=== PATIENT | female | born 1975 | race Caucasian/White ===

== ENCOUNTER 2023-05-06 12:05 | Outpatient (CLI) | payer OTHER, SELFPAY ==
--- OUTSIDE RECORDS SUMMARY | 2023-05-11 20:19 | XMS_ITS | Clinical Summary ---
Author Name Unknown Organization [place] Address [address] [place] [address] Care Team Providers Care Retail Operations Specialist Name Role Phone Gigi Myers MD Primary Care Provider [phone] Mery Alicia RN Unavailable Unavaila ble Gigi Myers MD Unavailable [phone] Paz Pimentel PhD Unavailable [phone] Donal Bustillos MD Unavailable Omer Escoto MD Unavailable [phone] Omer Escoto MD Unavailable [phone] Allergies Active Allergy Reactions Criticality Noted Date Comments No Known Drug Allergy 06/17/2003 Medications Medication Sig Dispensed Refills Start Date End Date Status Multiple Vitamin (DAILY VITAMIN PO) Take by mouth daily 0 Active psyllium 30.9 % POWD Take by mouth daily 0 Active co-enzyme Q-10 100 MG CAPS capsule Take by mouth daily 0 Active cholecalciferol (VITAMIN D3) 1000 units (25 mcg) capsule Take 1 capsule by mouth daily 0 Active Biotin 10 MG CAPS 0 Active calcium carbonate (OS-UMA) 500 MG tablet Take 1 tablet by mouth 2 times daily 0 Active glutamine 500 MG capsule Take 500 mg by mouth once 0 Active folic acid (FOLVITE) 1 MG tablet Take 1 tablet (1 mg) by mouth daily 0 08/28/2019 Active KEVZARA 200 MG/1.14ML SOAJ 0 06/16/2021 Active hydroxychloroqu ine (PLAQUENIL) 200 MG tablet Take 200 mg by mouth 2 times daily 0 09/01/2021 Active nortriptyline (PAMELOR) 50 MG capsuleIndicati ons: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 This is not a prescription, and is not used to certify that the patient has a qualifying medical condition.) 0 Active famotidine (PEPCID) 20 MG tablet Take 20 mg by mouth 0 Active ALPRAZolam (XANAX) 0.25 MG tabletIndicatio ns:Generalized anxiety disorder TAKE 1 TABLET BY MOUTH 2 TIMES DAILY NEEDED FOR ANXIETY. 30 tablet 0 11/21/2022 Active busPIRone (BUSPAR) 5 MG tabletIndicatio ns:Generalized anxiety disorder Take 1 tablet (5 mg) by mouth 2 times daily for 10 days, THEN 1.5 tablets (7.5 mg) 2 times daily for 10 days, THEN 2 tablets (10 mg) 2 times daily for 10 days. 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) Take 1 tablet (10 mg) by mouth 3 times daily as needed for muscle spasms 30 tablet 5 11/30/2022 Active nicotine (NICODERM CQ) 7 MG/24HR 24 hr patchIndication s:Encounter for tobacco use cessation counseling Place 1 patch onto the skin every 24 hours 30 patch 2 03/20/2023 Active nicotine (NICORETTE) 2 MG gumIndications: Encounter for tobacco use cessation counseling Place 1 each (2 mg) inside cheek every hour as needed for smoking cessation 240 each 1 03/21/2023 Active busPIRone (BUSPAR) 10 MG tabletIndicatio ns:Generalized anxiety disorder TAKE 1 TABLET BY MOUTH TWICE A DAY 180 tablet 1 03/29/2023 Active gabapentin (NEURONTIN) 300 MG capsuleIndicati ons:Neuralgia Take 1 capsule (300 mg) by mouth 2 times daily 60 capsule 1 04/28/2023 Active albuterol (PROAIR HFA/PROVENTIL HFA/VENTOLIN HFA) 108 (90 Base) MCG/ACT inhalerIndicati ons:Chest tightness Inhale 1-2 puffs into the lungs every 4 hours as needed for shortness of breath 6.7 g 0 01/01/2023 04/25/19 24 Discontinued( Therapy completed (No AVS)) guaiFENesin-cod eine (ROBITUSSIN AC) 100-10 MG/5ML solutionIndicat ions:Acute cough Take 5-10 mLs by mouth every 4 hours as needed for cough 60 mL 0 01/01/2023 04/25/19 24 Discontinued( Therapy completed (No AVS)) oxyCODONE (ROXICODONE) 5 MG tablet Take 1 tablet (5 mg) by mouth every 6 hours as needed for pain 10 tablet 0 04/08/2023 04/13/20 23 gabapentin (NEURONTIN) 300 MG capsuleIndicati ons:Neuralgia Take 1 capsule (300 mg) by mouth at bedtime 30 capsule 1 04/19/2023 04/28/19 24 Discontinued( Reorder (No AVS)) Active Problems Problem Noted Date Diagnosed Date High risk medication use 02/27/2022 Primary osteoarthritis of both knees 07/18/2020 Nontraumatic complete tear of left rotator cuff 07/07/2020 Overview: Added automatically from request for surgery [id number] BMI 50.0-59.9, adult 04/07/2020 Medical cannabis use 02/13/2020 Overview: Certification for RA and Chronic Joint Pain 02/13/2020 Rheumatoid arthritis involvi ng both shoulders with positive rheumatoid factor 07/08/2019 Obesity 05/24/2018 Irritable bowel syndrome 11/27/2013 Overview: Manages with fiber supplement and dietary Generalized anxiety disorder 11/27/2013 Disturbance of skin sensation 04/27/2005 Resolved Problems Problem Noted Date Diagnosed Date Resolved Date RA (rheumatoid arthritis) 07/12/2021 Acute pain of right knee 02/24/202110/2021 Acute pain of left shoulder 08/31/2020 12/14/2020 Aftercare following surgery of the musculoskeletal system 08/31/2020 12/14/2020 Nontraumatic incomplete tear of left rotator cuff 04/07/2020 06/11/2020 Shoulder pain, left 04/10/2019 07/10/19 Acute pain of right shoulder 04/10/2019 07/10/2019 Intermittent asthma 03/26/2014 06/20/19 Encounters Date Type Department Care Team Description 04/28/[address] [place] [address] Gigi Myers MD Medication Request (Gabapentin ) 04/12/2023 5:30 PM DIAPER MACHINE TENDER E-Visit [address] [place] [address] Gigi Myers MD Other (Entered automatically based on jessica... 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); Rash Discharge Disposition: Home or Self Care 04/08/2023 Travel 03/29/[address] [place] [address] Gigi Myers MD Medication Refill 03/20/2023 [facility]phone [facility] [address] [place] [address] Gigi Myers MD Medication Question (Requesting med for smoking cessation ) from Last 3 Months Immunizations Name Administration Dates Next Due Influenza (IIV3) PF 02/02/2012,01/13/2011 Family History Medical History Relation Comments Alzheimer Disease Maternal Grandmother Macular Degeneration Maternal Grandmother Depression Mother Macular Degeneration Mother Cancer - colorectal Paternal Aunt Cancer - colorectal Paternal Grandmother Psychotic Disorder Sister bipolar? schi zoaffective? -- has been hospitalized multiple times Alcohol/Drug No family hx of Breast Cancer No family hx of C.A.D. No family hx of Diabetes No family hx of Glaucoma No family hx of Relation Status Comments Maternal Grandmother Mother Paternal Aunt Paternal Grandmother Sister Social History Tobacco Use Types Packs/Day Years Used Date Smoking Tobacco: Some Days Cigarettes 0.5 10 Last attempted to quit: 02/02/1999 Smokeless Tobacco: Never Tobacco Cessation:Ready to Q uit: Not Asked; Counseling Given: Not Answered Alcohol Use Standard Drinks/Week Comments Yes 0 (1 standard drink = 0.6 oz pur e alcohol) 5/month Social Connection and Isolat ion Panel [NHANES] Answer Date Recorded In a typical week, how many times do you talk on the phone with family, friends, or neighbors? More than three times a week 11/15/2021 How often do you get togethe r with friends or relatives? Twice a week 11/15/2021 How often do you attend chur or evangelical services? Never 11/15/2021 Do you belong to any clubs o r organizations such as anabaptism groups, unions, fraternal or athletic groups, or school groups? No 11/15/2021 Attends Club or Organization Meetings Not on bharat e 11/15/2021 Are you , , di vorced, , never , or living with a partner? Never 11/15/2021 AUDIT-C Answer Date Recorded Q1: How often do you have a drink containing alc ohol? 2-4 times a month 11/15/2021 Q2: How many drinks containi ng alcohol do you have on a typical day when you are drinking? 3 or 4 11/15/2021 Q3: How often do you have si x or more drinks on one occasion? Never 11/15/2021 Overall Financial Resource Strain (CARDIA) Answe r Date Recorded How hard is it for you to pa y for the very basics like food, housing, medical care, and heating? Not hard at all 11/15/2021 PHQ-2 Answer Date Recorded PHQ-2 Score 0 11/30/2022 [facility] - Occupational Stress Questionnaire Answer Date Recorded Do you feel stress - tense, restless, nervous, or anxious, or unable to sleep at night because your mind is troubled all the time - these days? Only a little 11/15/2021 Exercise Vital Sign Answer Date Recorde d On average, how many days pe r week do you engage in moderate to strenuous exercise (like a brisk walk)? 5 days 11/15/2021 On average, how many minutes do you engage in exercise at this level? 40 min 11/15/2021 Hunger Vital Sign Answer Date Recorded Within the past 12 months, y ou worried that your food would run out before you got the money to buy more. Never true 11/16/19 22 Within the past 12 months, t he food you bought just didn't last and you didn't have money to get more. Never true 11/15/2021 PRAPARE - Transportation Answer Date Re corded In the past 12 months, has l ack of transportation kept you from medical appointments or from getting medications? No 10/23 In the past 12 months, has l ack of transportation kept you from meetings, work, or from getting things needed for daily living? No 11/15/2021 Housing Stability Vital Sign Answer Gerardo e Recorded In the last 12 months, was t here a time when you were not able to pay the mortgage or rent on time? No 11/15/2021 In the last 12 months, how many places have you lived? 1 11/15/2021 In the last 12 months, was t here a time when you did not have a steady place to sleep or slept in a alf (including now)? No 11/15/2021 Adolescent Education Answer Date Record ed Getting School Help Needed Not on file 01/16 Sex and Gender Information Value Date Recorded Sex Assigned at Not on file Gender Identity Not on file Sexual Orientation Not on file Last Filed Vital Signs Vital Sign Reading Time Taken Comments Blood Pressure 145/77 04/08/2023 1:58 PM DIAPER MACHINE TENDER Pulse 91 04/08/2023 1:58 PM DIAPER MACHINE TENDER Temperature 36.7 ??C (98 ??F) 04/08/2023 12:34 PM DIAPER MACHINE TENDER Respiratory Rate 16 04/08/2023 12:34 PM DIAPER MACHINE TENDER Oxygen Saturation 97% 04/08/2023 2:00 PM DIAPER MACHINE TENDER Inhaled Oxygen Concentration - - Weight 131.5 kg (290 lb) 04/08/2023 12:34 PM DIAPER MACHINE TENDER Height 167.6 cm (5' 6) 04/08/2023 12:34 PM DIAPER MACHINE TENDER Body Mass Index 46.81 04/08/2023 12:34 PM DIAPER MACHINE TENDER Plan of Treatment Upcoming Encounters Date Type Department Care Team (Late st Contact Info) Description 05/24/2023 10:30 AM DIAPER MACHINE TENDER Office Visit [address] [phone] Coming Duarte, July MD Joy [id number] [place] [id number] Health Maintenance Due Date Last Done Comments ADVANCE CARE PLANNING 1974 ANNUAL REVIEW OF HM ORDERS 1974 CT COLONOGRAPHY 1974 FIT 1974 FLEX SIG 1974 YEARLY PREVENTIVE VISIT 1974 sDNA (Cologuard) 1974 Pneumococcal Vaccine: Pediatrics (0 to 5 Years) and At-Risk Patients (6 to 64 Years) (1 of 2 - PCV) 1980 DTAP/TDAP/TD IMMUNIZATION (1 - Tdap) 09/06/1999 LIPID 02/08/2021 02/09/2016 ASTHMA CONTROL TEST 12/18/2022 06/20/2022, 11/15/2021, 06/12/2020 (Declined), Additional history exists COVID-19 Vaccine ( - season) 2022 12/17/2021, 01/16/2021, 12/26/2020 INFLUENZA VACCINE (#1) 2022 (Declined), 05/22/2018 (Declined), 02/02/2012, Additional history exists PHQ-2 (once per calendar year) 2023 11/30/2022, 06/20/2022, 11/15/2021, Additional history exists ASTHMA ACTION PLAN 06/20/2023 06/20/2022, 0 09/02/2020, 09/02/2020, Additional history exists NICOTINE/TOBACCO CESSATION COUNSELING Q 1 YR 06/20/2023 06/20/2022 MAMMO SCREENING 10/29/2023 10/28/2022, 07/0 10/2022, 10/14/2021, Additional history exists PAP 04/24/2025 04/24/2022, 08/27/2012 COLONOSCOPY 08/19/2032 08/19/2022, 08/19/2022 COLORECTAL CANCER SCREENING 08/19/2032 HIV SCREENING Addressed 05/22/2018 (Declined) Overr idden with the intention of not completing the topic HEPATITIS B IMMUNIZATION Discontinued HEPATITIS C SCREENING Discontinued HPV IMMUNIZATION Aged Out No longer e ligible based on patient's age to complete this topic IPV IMMUNIZATION Aged Out No longer e ligible based on patient's age to complete this topic MENINGITIS IMMUNIZATION Aged Out No l onger eligible based on patient's age to complete this topic RSV MONOCLONAL ANTIBODY Aged Out No l onger eligible based on patient's age to complete this topic Medical Devices Implanted Type Area Medical Underwriter Device Identifier Shelf Expiration Date Model / Serial / Lot Imp Mirena Intrauterine Device Implanted:Qty: 1 on 02/13/2019 by Zara Ocampo MD at [facility] N/A: Uterus 05/24/2021 [id number] / / [id number] Explanted Type Area Medical Underwriter Device Identifier Shelf Expiration Date Model / Serial / Lot Mirena Iud Implanted:Qty: 1 on 06/24/2014 by Zara Ocampo MD at [facility] Explanted:Qty: 1 on 02/13/2019 by Zara Ocampo MD at [facility] N/A: Uterus 12/22/2016 [id number] / NO CHARGE, [facility] OCAMPO BROUGHT FROM [facility] Care Teams Retail Operations Specialist Relationship Specialty Start Date End Date Gigi Myers MD [address] [place] [address] [place] [id number] PCP - General Internal Medicine 05/05/15 Mery Alicia, LISA Personal Advocate & Liaison (PAL) 08/13/20 Gigi Myers MD [address] [place] [address] [place] [id number] Assigned PCP 03/07/21 [place] [id number] [place] [id number] Assigned Behavioral Health Provider 09/05/21 Donal Bustillos MD [address] [place] [address] Dermatology 09/28/21 Omer Escoto MD [address] [facility] [place] [phone] Ophthalmology 12/20/21 Omer Escoto MD [address] [facility] [phone] Assigned Surgical Provider 08/27/22
--- OUTSIDE RECORDS SUMMARY | 2023-05-11 20:19 | XMS_ITS | Encounter Summary ---
Author Name Unknown Organization [facility] Address [address], [place] [address] Care Team Providers Care Certified Nurses Aide Name Role Phone Gigi Myers MD Primary Care Provider [phone] Reason for Visit * Reason Comments Refill Encounter Details Date Type Department Care Team Description 07/28/2022 Refill [facility] [address] Rhe[address] [facility] [place], [place] [address] Mary Beth Pendleton, DO [address] [place], [place] [id number] Refill Social History Tobacco Use Types Packs/Day Years Used Date Smoking Tobacco: Never Smokeless Tobacco: Never Alcohol Use Standard Drinks/Week Comments Yes 0 (1 standard drink = 0.6 oz pur e alcohol) social- 2/week Sex and Gender Information Value Date Recorded Sex Assigned at Not on file Gender Identity Not on file Sexual Orientation Not on file documented as of this encounter Nursing Notes * Qi Duncan RN - 07/28/2022 7:49 AM CDT Last visit 02/26/21. VM left for patient 10/26/21 that an appointment is needed for refills, no appointment made, refill denied. documented in this encounter Plan of Treatment Not on file documented as of this encounter Visit Diagnoses Not on filedocumented in this encounter Care Teams Certified Nurses Aide Relationship Specialty Start Date End Date Gigi Myers MD [address] [facility] [place] [address] PCP - General Internal Medicine 07/13/18 documented as of this encounter
--- OUTSIDE RECORDS SUMMARY | 2023-05-11 20:19 | XMS_ITS | Clinical Summary ---
Author Name Unknown Organization [facility] Address [address] [place] [address] Care Team Providers Care Nuclear Medicine Specialist Name Role Phone Gigi Myers MD Primary Care Provider + [phone] Source Comments You are receiving this document as you are listed as the primary care provider,follow-up provider, or the patient has been referred to you for consultation.This is in compliance with the Medicare andThe [facility] EHR Incentive Program,which states Providers who transition their patient to another setting of careor provider of care or refers their patient to another provider of care shouldprovide summary care record for each transition of care or referral. [facility] Allergies No known active allergies Medications Medication Sig Dispensed Refills Start Date End Date Status psyllium (METAMUCIL) 30.9 % powder Take by mouth. 0 Active Multiple Vitamins-Minerals (MULTIPLE VITAMINS/WOMENS) Take by mouth. 0 04/27/2005 Acti ve Calcium 500 MG Take 1 Tablet by mouth. 0 Active Cholecalciferol (VITAMIN D3) 25 MCG (1000 UT) Take 1 Capsule by mouth. 5000 0 Active Lactobacillus Acid-Pectin (ACIDOPHILUS/CITRUS PECTIN) tablet Take 1 Tablet by mouth. 0 Active zinc sulfate (ZINCATE) 220 (50 Zn) MG capsule Take 220 mg by mouth. 0 Active famotidine (PEPCID) 20 MG tablet Take 20 mg by mouth two times daily as needed for Heartburn. 0 Active omega-3 fatty acids (FISH OIL) 1000 MG capsule Take 2 g by mouth daily. 0 Active Glutamine 500 MG 0 Active Glucosamine-Chondroit -Vit C-Mn (GLUCOSAMINE 1500 COMPLEX OR) 0 Active Biotin 10 MG CAPS Take by mouth. 0 Act scarlet tocopheryl (VITAMIN E) 400 units capsule Take by mouth. 0 Active Probiotic Product (FLORAJEN BIFIDOBLEND OR) Take 1 Capsule by mouth. 0 Active Digestive Enzymes 0 Active medical cannabis patient certifiedIndications: Seropositive rheumatoid arthritis (HRC),Nontraumatic incomplete tear of left rotator cuff Take as instructed . 0 Active cyclobenzaprine (FLEXERIL) 10 MG tablet TAKE 1 TABLET BY MOUTH TWO TIMES DAILY NEEDED FOR MUSCLE SPASMS. 60 Tablet 2 07/19/2020 Active hydrOXYzine pamoate (VISTARIL) 25 MG capsuleIndications:S/ P shoulder surgery Take 1-2 Capsules by mouth three times a day as needed. 30 Capsule 0 09/11/2020 Active celecoxib (CELEBREX) 100 MG capsule Take 1 Capsule by mouth two times a day. 60 Capsule 5 11/20/2020 Active traMADol (ULTRAM) 50 MG tabletIndications:Ser opositive rheumatoid arthritis (HRC),Primary osteoarthritis of both knees,Chronic pain syndrome Take 1-2 Tablets by mouth at bedtime as needed for Pain. 30 Tablet 0 11/20/2020 Active tofacitinib citrate (XELJANZ XR) 11 MG [id number]:Rheum atoid Arthritis,M05.9 Take 11 mg by mouth daily. Indications: Rheumatoid Arthritis, M05.9 30 Tablet 11 11/25/2020 Active ALPRAZolam (XANAX) 0.25 MG tablet 0 01/07/2021 Active folic acid 1 MG tablet TAKE 1 TABLET BY MOUTH EVERY DAY 90 Tablet 3 07/09/2021 Active methotrexate 2.5 MG tablet Take 8 Tablets (20 mg) by mouth once every week LABS AND APPT NEEDED FOR REFILLS 32 Tablet 0 10/26/2021 Active Active Problems Problem Noted Date Diagnosed Date Primary osteoarthritis of both knees 07/18/2020 Nontraumatic complete tear of left rotator cuff 07/07/2020 Overview: Added automatically from request for surgery [id number] BMI 50.0-59.9, adult 04/07/2020 Medical cannabis use 02/13/2020 Overview: Certification for RA and Chronic Joint Pain 02/13/2020 Seropositive rheumatoid arthritis 11/12/2019 Morbid obesity 05/24/2018 Intermittent asthma 03/26/2014 Generalized anxiety disorder 11/27/2013 Irritable bowel syndrome 11/27/2013 Overview: Manages with fiber supplement and dietary Disturbance of skin sensation 04/27/2005 Resolved Problems Problem Noted Date Diagnosed Date Resolved Date Nontraumatic incomplete tear of left rotator cuff 04/07/2020 07/17/2020 Immunizations Name Administration Dates Next Due Flu Vac (3+ yrs) 02/02/2012,01/13/2011 Pfizer Monovalent 12+ Purple Top 01/16/2021,09/0 07/2020 Family History Medical History Relation Name Comments Arthritis Mother Arthritis Maternal Uncle Inflammatory Bowel Disease Negative Family History Lupus Negative Family History Relation Name Status Comments Mother Alive Maternal Uncle Alive Social History Tobacco Use Types Packs/Day Years [...] Sign Reading Time Taken Comments Blood Pressure 128/85 02/26/2021 9:28 AM CDT Pulse 76 02/26/2021 9:28 AM CDT Temperature 36.4 ??C (97.6 ??F) 11/20/2020 9:42 AM CD T Respiratory Rate 23 08/17/2020 2:00 PM CDT Oxygen Saturation 94% 08/17/2020 2:45 PM CDT Inhaled Oxygen Concentration - - Weight 130.2 kg (287 lb) 04/28/2021 4:23 PM LATHER APPRENTICE Height 167.6 cm (5' 6) 04/28/2021 4:23 PM LATHER APPRENTICE Body Mass Index 46.32 04/28/2021 4:23 PM LATHER APPRENTICE Plan of Treatment Health Maintenance Due Date Last Done Comments Cervical Cancer Screening Due 1974 Colon Cancer Screening Plan Due 1974 HepB (1) 1974 Asthma ACT 1978 Pneumococcal (1 - PCV) 1980 HIV Screening (Preventive Services) 1990 Adult Preventive Visit 1992 DTaP/Tdap/Td (1 - Tdap) 1993 Cholesterol 09/06/2019 COVID-19 Vaccine (3 - 2022-2 4 season) 2022 01/16/2021, 12/26/2020 Influenza (#1) 2022 02/02/2012, 01/13/2011 Zoster/Shingles (1 of 2) 2024 Hep C Screening (Preventive Services) Completed 07/30/2019 HepA Aged Out No longer eligi ble based on patient's age to complete this topic Hib Aged Out No longer eligi ble based on patient's age to complete this topic IPV (Polio) Aged Out No longer eligi ble based on patient's age to complete this topic MCV4 Aged Out No longer eligi ble based on patient's age to complete this topic Medical Devices Implanted Type Area Sample Room Supervisor Device Identifier Shelf Expiration Date Model / Serial / Lot Scr Biotendesis Lucyvelroula - [id number] Implanted:Qty: 1 on 08/17/2020 by Mike Smith MD at [facility] DEVICE Left: SHOULDER [employer] 01/22/2024 [id number] / / [id number] Advance Directives Latest Code Status on File Code Status Date Activated Date Inactivated Comments Full Code 08/17/2020 2:10 PM 08/17/2020 5:08 PM Care Teams Nuclear Medicine Specialist Relationship Specialty Start Date End Date Gigi Myers MD [address] [place] [address] [place] [address] PCP - General Internal Medicine 07/13/18
--- OUTSIDE RECORDS SUMMARY | 2023-05-11 20:19 | XMS_ITS | Encounter Summary ---
Author Name Unknown Organization [place] Address [address] [place] [address] Care Team Providers Care Stone Setter Metal Optical Frames Name Role Phone Gigi Myers MD Primary Care Provider [phone] Mery Alicia RN Unavailable Unavaila ble Gigi Myers MD Unavailable [phone] Paz Pimentel PhD Unavailable [phone] Donal Bustillos MD Unavailable Omer Escoto MD Unavailable Omer Escoto MD Unavailable [phone] Reason for Visit * Reason Onset Date Comments Medication Request 04/28/2023 Gabapentin Encounter Details Date Type Department Care Team (Late st Contact Info) Description 04/28/2023 Telephone [facility] Julien [address] [place] [address] Gigi Myers MD [address] [facility] [place] [address] Medication Request (Gabapentin ) Social History Tobacco Use Types Packs/Day Years Used Date Smoking Tobacco: Some Days Cigarettes 0.5 10 Last attempted to quit: 02/02/1999 Smokeless Tobacco: Never Alcohol Use Standard Drinks/Week [...] 11/15/2021 How often do you attend chur ch or christianity services? Never 11/15/2021 Do you belong to any clubs o r organizations such as uatsdin groups, unions, fraternal or athletic groups, or [...] Answer Date Recorded PHQ-2 Score 0 11/30/2022 [facility]ational Stress Questionnaire Answer Date Recorded [...] place to sleep or slept in a skilled nursing (including now)? No 11/15/2021 Adolescent Education Answer Date Record ed Getting School Help Needed Not on file 01/16 Sex and Gender Information Value Date Recorded Sex Assigned at Not on file Gender Identity Not on file Sexual Orientation Not on file documented as of this encounter Miscellaneous Notes * Telephone Encounter - Mery Alicia RN - 04/28/2023 3:23 PM JOB PLACEMENT COUNSELOR See the e-visit from 04/12/23. LISA Ordonez Patient Advocate Liason (PAL) ealth [facility] Ph. [phone] / Fax. [phone] PLACEMENT COUNSELOR * Telephone Encounter - Jolene Ely PA-C - 04/28/2023 2:56 PM CST I don't see an encounter from 04/25/23. Jolene Ely PA-C PLACEMENT COUNSELOR * Telephone Encounter - Monika Barba RN - 04/28/2023 1:41 PM JOB PLACEMENT COUNSELOR Pt called On 04/25/23 Dr. Myers increased her gabapentin to 2 capsules but the script was not changed You can try doubling the dose of gabapentin. Options are to take a dose in the morning as well as evening or 2 capsules in the evening. Can someone help with this? Thank you Monika Barba, RN on 04/28/2023 at 1:48 PM PLACEMENT COUNSELOR documented in this encounter Plan of Treatment Upcoming Encounters Date Type Department Care Team (Late st Contact Info) Description 05/24/2023 10:30 AM JOB PLACEMENT COUNSELOR Office Visit [facility] [address] [place] [phone] [place] [address] [place] [address] documented as of this encounter Visit Diagnoses Diagnosis Neuralgia Neuralgia, neuritis, and radiculitis, unspecified documented in this encounter Additional Health Concerns Assessment Noted Time PHQ-9 Depression Total Score: 5 03/02/20 21 7:32 AM JOB PLACEMENT COUNSELOR documented as of this encounter Care Teams Stone Setter Metal Optical Frames Relationship Specialty [place] [address] [place] [address] [place] [address] PCP - General Internal Medicine 05/05/15 Mery Alicia, LISA Personal Advocate & Liaison (PAL) 08/13/20 [place] [address] [place] [address] [place] [address] Assigned PCP 03/07/21 [place] [address] [place] [address] Assigned Behavioral Health Provider 09/05/21 Donal Bustillos MD [address] [place] [address] Dermatology 09/28/21 Omer Escoto MD [address] [facility] [place] [phone] Ophthalmology 12/20/21 Omer Escoto MD [address] [facility] [place] [phone] Assigned Surgical Provider 08/27/22 documented as of this encounter
--- OUTSIDE RECORDS SUMMARY | 2023-05-11 20:19 | XMS_ITS | Encounter Summary ---
Author Name Unknown Organization [facility] Address [address] [place] [address] Care Team Providers Care Cider Maker Name Role Phone Gigi Myers MD Primary Care Provider [phone] Encounter Details Date Type Department Care Team Description 07/03/2022 Notes/Orders [facility] [address] [place], [place] [address] Mike Smith MD [address] [facility] [place] [address] Social History Tobacco Use Types Packs/Day Years Used Date Smoking Tobacco: Never Smokeless Tobacco: Never Alcohol Use Standard Drinks/Week Comments Yes 0 (1 standard drink = 0.6 oz pur e alcohol) social- 2/week Sex and Gender Information Value Date Recorded Sex Assigned at Not on file Gender Identity Not on file Sexual Orientation Not on file documented as of this encounter Plan of Treatment Not on file documented as of this encounter Visit Diagnoses Not on filedocumented in this encounter Care Teams Cider Maker Relationship Specialty Start Date End Date Gigi Myers MD [facility] [place] [address] PCP - General Internal Medicine 07/13/18 documented as of this encounter
--- OUTSIDE RECORDS SUMMARY | 2023-05-11 20:19 | XMS_ITS | Referral Summary ---
Author Name Unknown Organization [place] Address [address] [place] [address] Care Team Providers Care Sharepoint Web Developer Name Role Phone Gigi Myers MD Primary Care Provider [phone] Mery Alicia RN Unavailable Unavaila ble Gigi Myers MD Unavailable [phone] Paz Pimentel PhD Unavailable [phone] Donal Bustillos MD Unavailable Omer Escoto MD Unavailable [phone] Omer Escoto MD Unavailable [phone] Encounters Date Type Department Care Team Description 04/28/[address] [place] [address] Gigi Myers MD Medication Request (Gabapentin ) 04/12/2023 5:30 PM MANUFACTURING COORDINATOR E-Visit [address] [place] [address] Gigi Myers MD Other (Entered automatically based on jessica... 04/12/2023 MyC Medical Advice [address] [place] [address] Vidal Floyd RN 04/12/[address] [place] [address] Gigi Myers MD Patient Request 04/08/2023 Travel 04/08/2023 12:41 PM MANUFACTURING COORDINATOR - 04/08/2023 2:46 PM MANUFACTURING COORDINATOR Emergency [facility] Emergency [facility] [address] 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 [address] [place] [address] Gigi Myers MD Medication Refill 03/20/2023 Telephone [facility] [address] [facility] [address] [place] [address] Gigi Myers MD Medication Question (Requesting med for smoking cessation ) from Last 3 Months Allergies Active Allergy Reactions Criticality Noted Date [...] Overview: Added automatically from request for surgery [id number] BMI 50.0-59.9, adult 04/07/2020 Medical cannabis use [...] 04/07/2020 06/11/2020 Shoulder pain, left 04/10/2019 07/10/19 20 Acute pain of right shoulder 04/10/2019 07/10/2019 Intermittent asthma 03/26/2014 06/20/19 23 Immunizations Name Administration Dates Next Due Influenza (IIV3) PF 02/02/2012,01/13/2011 Social History Tobacco Use Types Packs/Day Years [...] often do you attend chur ch or zoroastrian services? Never 11/15/2021 Do you belong to any clubs o r organizations such as buddhism groups, unions, fraternal or athletic groups, or [...] Answer Date Recorded PHQ-2 Score 0 11/30/2022 [facility] - Occupational Stress Questionnaire Answer Date [...] place to sleep or slept in a correction (including now)? No 11/15/2021 Adolescent Education Answer Date Record ed Getting School Help Needed Not on file 01/16 Sex and Gender Information Value Date Recorded Sex Assigned at Not on file Gender Identity Not on file Sexual Orientation Not on file Last Filed Vital Signs Vital Sign Reading Time Taken Comments Blood Pressure 145/77 04/08/2023 1:58 PM MANUFACTURING COORDINATOR Pulse 91 04/08/2023 1:58 PM MANUFACTURING COORDINATOR Temperature 36.7 ??C (98 ??F) 04/08/2023 12:34 PM MANUFACTURING COORDINATOR Respiratory Rate 16 04/08/2023 12:34 PM MANUFACTURING COORDINATOR Oxygen Saturation 97% 04/08/2023 2:00 PM MANUFACTURING COORDINATOR Inhaled Oxygen Concentration - - Weight 131.5 kg (290 lb) 04/08/2023 12:34 PM MANUFACTURING COORDINATOR Height 167.6 cm (5' 6) 04/08/2023 12:34 PM MANUFACTURING COORDINATOR Body Mass Index 46.81 04/08/2023 12:34 PM MANUFACTURING COORDINATOR Plan of Treatment Upcoming Encounters Date Type Department Care Team (Late st Contact Info) Description 05/24/2023 10:30 AM MANUFACTURING COORDINATOR Office Visit [facility] [address] [place] [address] [place] [address] [place], [place] [id number] Medical Devices Implanted Type Area Subgrade Roller Operator Device Identifier Shelf Expiration Date Model / Serial / Lot Imp Mirena Intrauterine Device Implanted:Qty: 1 on 02/13/2019 by Zara Ocampo MD at [facility] N/A: Uterus 05/24/2021 [id number] / / [id number] Explanted Type Area Subgrade Roller Operator Device Identifier Shelf Expiration Date Model / Serial / Lot Mirena Iud Implanted:Qty: 1 on 06/24/2014 by Zara Ocampo MD at [facility] Explanted:Qty: 1 on 02/13/2019 by Zara Ocampo MD at [facility] N/A: Uterus 12/22/2016 [id number] / NO CHARGE, DR. OCAMPO BROUGHT FROM OFFICE / [facility] Care Teams Sharepoint Web Developer Relationship Specialty Start Date End Date Gigi Myers MD [address] [facility] [place] [address] PCP - General Internal Medicine 05/05/15 Mery Alicia, LISA Personal Advocate & Liaison (PAL) 08/13/20 Gigi Myers MD [address] [facility] [place] [address] Assigned PCP 03/07/21 [place] [address] [place] [address] Assigned Behavioral Health Provider 09/05/21 Donal Bustillos MD [address] [place] [address] Dermatology 09/28/21 Omer Escoto MD [address] [facility] [place] [address] Ophthalmology 12/20/21 Omer Escoto MD [address] [facility] [place] [address] Assigned Surgical Provider 08/27/22
--- OUTSIDE RECORDS SUMMARY | 2023-05-11 20:20 | XMS_ITS | Encounter Summary ---
Author Name Unknown Organization [place] Address [address] [place] [address] Care Team Providers Care Parole Director Name Role Phone Gigi Myers MD Primary Care Provider [phone] Mery Alicia RN Unavailable Unavaila ble Gigi Myers MD Unavailable [phone] Paz Pimentel PhD Unavailable [phone] Donal Bustillos MD Unavailable [phone] Omer Escoto MD Unavailable [phone] Omer Escoto MD Unavailable [phone] Encounter Details Date Type Department Care Team (Latest Contact Info) Description 11/30/2022 Travel Social History Tobacco Use Types Packs/Day Years [...] week 11/15/2021 How often do you attend [facility] or hinduism services? Never 11/15/2021 Do you belong to any clubs o r organizations such as quaker groups, unions, fraternal or athletic groups, or [...] Answer Date Recorded PHQ-2 Score 0 11/30/2022 [facility] - Occupational Stress [...] place to sleep or slept in a mcfp (including now)? No 11/15/2021 Sex and Gender Information Value Date Recorded Sex Assigned at Not on file Gender Identity Not on file Sexual Orientation Not on file COVID-19 Exposure Response Date Recorded In the last 10 days, have yo u been in contact with someone who was confirmed or suspected to have Coronavirus/COVID-19? No / Unsure 11/30/2022 4:08 PM CDT documented as of this encounter Plan of Treatment Upcoming Encounters Date Type Department Care Team (Late st Contact Info) Description 05/24/2023 10:30 AM LAMP SHADE SEWER Office Visit [address] [address] [place] [address] [place] [address] documented as of this encounter Visit Diagnoses Not on filedocumented in this encounter Additional Health Concerns Assessment Noted Time PHQ-9 Depression Total Score: 5 03/02/20 21 7:32 AM LAMP SHADE SEWER documented as of this encounter Care Teams Parole Director Relationship Specialty Start Date End Date Gigi Myers MD [address] [place] [address] [place] [address] PCP - General Internal Medicine 05/05/15 Mery Alicia, LISA Personal Advocate & Liaison (PAL) 08/13/20 Gigi Myers MD [address] [facility] [place] [address] Assigned PCP 03/07/21 Paz Pimentel, PhD [address] [place] [address] Assigned Behavioral Health Provider 09/05/21 Donal Bustillos MD [address] [place] [address] Dermatology 09/28/21 Omer Escoto MD [address] [facility] [place] [address] Ophthalmology 12/20/21 Omer Escoto MD [address] [facility] [place] [address] Assigned Surgical Provider 08/27/22 documented as of this encounter
--- OUTSIDE RECORDS SUMMARY | 2023-05-11 20:20 | XMS_ITS | Encounter Summary ---
Author Name Unknown Organization [place] Address [address] [place] [address] Care Team Providers Care Emergency Department Technician Name Role Phone Gigi Myers MD Primary Care Provider [phone] Mery Alicia RN Unavailable Unavaila ble Gigi Myers MD Unavailable [phone] Paz Pimentel PhD Unavailable [phone] Donal Bustillos MD Unavailable Omer Escoto MD Unavailable [phone] Omer Escoto MD Unavailable [phone] Reason for Visit * Reason Onset Date Comments Refill Request 12/29/2022 Encounter Details Date Type Department Care Team (Late st Contact Info) Description 12/29/2022 Refill [facility] Julien [address] [facility] [address] [place] [address] Gigi Myers MD [address] [facility] [place] [address] Refill Request Social History Tobacco Use Types Packs/Day Years [...] How often do you attend chur or latter-day services? Never 11/15/2021 Do you belong to any clubs o r organizations such as protestant groups, unions, fraternal or athletic groups, or [...] Answer Date Recorded PHQ-2 Score 0 11/30/2022 [facility] - Occupational Stress Questionnaire Answer Date Recorded [...] place to sleep or slept in a halfway (including now)? No 11/15/2021 Sex and Gender [...] PM CDT documented as of this encounter Miscellaneous Notes * Telephone Encounter - Gigi Myers MD - 12/30/2022 4:06 PM CDT Rx updated to 10 mg tablets, dose 1 BID. * Telephone Encounter - Calli Whiting RN - 12/30/2022 3:42 PM CDT Updated sig? Calli Perez. LISA Whiting on 12/30/2022 at 3:43 PM * Telephone Encounter - Lashae Taveras - 12/29/2022 12:57 PM CDT Pt called requesting fill. Pt believes it is working but she just went up to the full dose. She would like to continue for another month or two. Lashae TyLeila Taveras on 12/29/2022 at 12:57 PM documented in this encounter Plan of Treatment Upcoming Encounters Date Type Department Care Team (Late st Contact Info) Description 05/24/2023 10:30 AM MEDICAL CODING SPECIALIST Office Visit [facility] [address] [place] [address] [place] [address] [place] [address] documented as of this encounter Visit Diagnoses Diagnosis Generalized anxiety disorder documented in this encounter Additional Health Concerns Assessment Noted Time PHQ-9 Depression Total Score: 5 03/02/20 21 7:32 AM MEDICAL CODING SPECIALIST documented as of this encounter Care Teams Emergency Department Technician Relationship Specialty [place] [address] [place] [address] [place] [address] PCP - General Internal Medicine 05/05/15 Mery Alicia, LISA Personal Advocate & Liaison (PAL) 08/13/20 [place] [address] [place] [address] [place] [address] Assigned PCP 03/07/21 [place] [address] [place] [address] Assigned Behavioral Health Provider 09/05/21 Donal Bustillos MD [address] [place] [address] Dermatology 09/28/21 Omer Escoto MD [address] [facility] [place] [address] Ophthalmology 12/20/21 Omer Escoto MD [address] [facility] [place] [address] Assigned Surgical Provider 08/27/22 documented as of this encounter
--- OUTSIDE RECORDS SUMMARY | 2023-05-11 20:20 | XMS_ITS | Encounter Summary ---
Author Name Unknown Organization [place] Address [address] [place] [address] Care Team Providers Care Camp Guard Name Role Phone Gigi Myers MD Primary Care Provider [phone] Mery Alicia RN Unavailable Unavaila ble Gigi Myers MD Unavailable [phone] Paz Pimentel PhD Unavailable [phone] Donal Bustillos MD Unavailable Omer Escoto MD Unavailable [phone] Omer Escoto MD Unavailable [phone] Reason for Visit * Reason Comments Other Entered automaticall y based on patient selection in [employer]. Encounter Details Date Type Department Care Team (Late st Contact Info) Description 04/12/2023 5:30 PM BATHHOUSE ATTENDANT E-Visit [facility]ien [address] [place] [address] Drive [address] [place] [address] Gigi Myers MD [address] [place] [address] [place] [address] Other (Entered automatically based on jessica... Social History Tobacco Use Types Packs/Day Years [...] often do you attend chur ch or amish services? Never 11/15/2021 Do you belong to any clubs o r organizations such as bahai groups, unions, fraternal or athletic groups, or [...] Answer Date Recorded PHQ-2 Score 0 11/30/2022 [facility] Questionnaire Answer Date [...] place to sleep or slept in a penitentiary (including now)? No 11/15/2021 Adolescent Education Answer Date Record ed Getting School Help Needed Not on file 01/16 Sex and Gender Information Value Date Recorded Sex Assigned at Not on file Gender Identity Not on file Sexual Orientation Not on file documented as of this encounter Miscellaneous Notes * Telephone Encounter - Gigi Myers MD - 04/12/2023 5:49 PM CST Provider E-Visit time total (minutes): 5 HOUSE ATTENDANT * Addendum Note - Gigi Myers MD - 04/12/2023 5:30 PM CSTAddended by: GIGI MYERS on: 04/19/2023 09:09 AM Modules accepted: Orders HOUSE ATTENDANT * Addendum Note - Gigi Myers MD - 04/12/2023 5:30 PM CSTAddended by: GIGI MYERS on: 04/25/2023 07:24 AM Modules accepted: Orders HOUSE ATTENDANT documented in this encounter Plan of Treatment Upcoming Encounters Date Type Department Care Team (Late st Contact Info) Description 05/24/2023 10:30 AM BATHHOUSE ATTENDANT Office Visit [facility] [address] [place] [phone] [place] [address] [place] [address] documented as of this encounter Visit Diagnoses Diagnosis Rash- Primary Rash and other nonspecific skin eruption Neuralgia Neuralgia, neuritis, and radiculitis, unspecified documented in this encounter Additional Health Concerns Assessment Noted Time PHQ-9 Depression Total Score: 5 03/02/20 21 7:32 AM BATHHOUSE ATTENDANT documented as of this encounter Care Teams Camp Guard Relationship Specialty Start Date End Date Gigi Myers MD [address] [place] [address] [place] [address] PCP - General Internal Medicine 05/05/15 Mery Alicia, LISA Personal Advocate & Liaison (PAL) 08/13/20 Gigi Myers MD [address] [place] [address] [place] [address] Assigned PCP 03/07/21 [place] [address] [place] [address] Assigned Behavioral Health Provider 09/05/21 Donal Bustillos MD [address] [place] [address] Dermatology 09/28/21 Omer Escoto MD [address] [facility] [phone] Ophthalmology 12/20/21 Omer Escoto MD [address] [facility] [place] [address] Assigned Surgical Provider 08/27/22 documented as of this encounter
--- OUTSIDE RECORDS SUMMARY | 2023-05-11 20:20 | XMS_ITS | Encounter Summary ---
Author Name Unknown Organization [place] Address [address] [place] [address] Care Team Providers Care Daytime Caregiver Name Role Phone Gigi Myers MD Primary Care Provider [phone] Mery Alicia RN Unavailable Unavaila ble Gigi Myers MD Unavailable [phone] Paz Pimentel PhD Unavailable [phone] Donal Bustillos MD Unavailable Omer Escoto MD Unavailable [phone] Omer Escoto MD Unavailable [phone] Encounter Details Date Type Department Care Team (Late st Contact Info) Description 01/03/2023 MyC Medical Advice [facility] [address] [facility] [address] [place] [address] Gigi Myers MD [address] [facility] [place] [address] Social History Tobacco Use Types Packs/Day Years [...] often do you attend chur ch or baptism services? Never 11/15/2021 Do you belong to any clubs o r organizations such as jehovah's witness groups, unions, fraternal or athletic groups, or [...] Answer Date Recorded PHQ-2 Score 0 11/30/2022 [facility] Occupat ional Health - [...] place to sleep or slept in a fdc (including now)? No 11/15/2021 Sex and Gender Information Value Date Recorded Sex Assigned at Not on file Gender Identity Not on file Sexual Orientation Not on file COVID-19 Exposure Response Date Recorded In the last 10 days, have yo u been in contact with someone who was confirmed or suspected to have Coronavirus/COVID-19? No / Unsure 01/01/2023 9:56 AM CDT documented as of this encounter Plan of Treatment Upcoming Encounters Date Type Department Care Team (Late st Contact Info) Description 05/24/2023 10:30 AM TWO NEEDLE MACHINE OPERATOR Office Visit [facility] [address] [place] [phone] [place] [address] [place], [place] [phone] documented as of this encounter Visit Diagnoses Not on filedocumented in this encounter Additional Health Concerns Assessment Noted Time PHQ-9 Depression Total Score: 5 03/02/20 21 7:32 AM TWO NEEDLE MACHINE OPERATOR documented as of this encounter Care Teams Daytime Caregiver Relationship Specialty Start Date End Date Gigi Myers MD [address] [place] [address] [place] [address] PCP - General Internal Medicine 05/05/15 Mery Alicia, LISA Personal Advocate & Liaison (PAL) 08/13/20 Gigi Myers MD [address] [place] [address] Assigned PCP 03/07/21 [place] [address] [place] [address] Assigned Behavioral Health Provider 09/05/21 Donal Bustillos MD [address] [place] [address] Dermatology 09/28/21 Omer Escoto MD [address] [facility] [place] [address] Ophthalmology 12/20/21 Omer Escoto MD [address] [facility] [place] [address] Assigned Surgical Provider 08/27/22 documented as of this encounter
--- OUTSIDE RECORDS SUMMARY | 2023-05-11 20:20 | XMS_ITS | Encounter Summary ---
Author Name Unknown Organization [facility] Address [address] [place] [address] Care Team Providers Care Drugless Physician Name Role Phone Gigi Myers MD Primary Care Provider Mery Alicia RN Unavailable Unavaila ble Gigi Myers MD Unavailable [phone] Paz Pimentel PhD Unavailable [phone] Donal Bustillos MD Unavailable Omer Escoto MD Unavailable Omer Escoto MD Unavailable [phone] Reason for Visit * Reason Comments Vaginal Problem Encounter Details Date Type Department Care Team (Late st Contact Info) Description 04/08/2023 12:41 PM PROFESSOR OF MUSIC - 04/08/2023 2:46 PM PROFESSOR OF MUSIC Emergency [facility] [address] [place] [id number] New Weir MD [facility] [address] [place], [place] [id number] Vaginal pain (Primary Dx); 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 Never 11/15/2021 Do you belong to any clubs o r organizations such as lutheran groups, unions, fraternal or athletic groups, or [...] Answer Date Recorded PHQ-2 Score 0 11/30/2022 [facility] - Occupational Stress Questionnaire Answer Date [...] place to sleep or slept in a residential (including now)? No 11/15/2021 Adolescent Education Answer Date Record ed Getting School Help Needed Not on file 01/16 Sex and Gender Information Value Date Recorded Sex Assigned at Not on file Gender Identity Not on file Sexual Orientation Not on file documented as of this encounter Last Filed Vital Signs Vital Sign Reading Time Taken Comments Blood Pressure 145/77 04/08/2023 1:58 PM PROFESSOR OF MUSIC Pulse 91 04/08/2023 1:58 PM PROFESSOR OF MUSIC Temperature 36.7 ??C (98 ??F) 04/08/2023 12:34 PM PROFESSOR OF MUSIC Respiratory Rate 16 04/08/2023 12:34 PM PROFESSOR OF MUSIC Oxygen Saturation 97% 04/08/2023 2:00 PM PROFESSOR OF MUSIC Inhaled Oxygen Concentration - - Weight 131.5 kg (290 lb) 04/08/2023 12:34 PM PROFESSOR OF MUSIC Height 167.6 cm (5' 6) 04/08/2023 12:34 PM PROFESSOR OF MUSIC Body Mass Index 46.81 04/08/2023 12:34 PM PROFESSOR OF MUSIC documented in this encounter Discharge Instructions * Discharge Instructions* New Weir MD - 04/08/2023 1:23 PM PROFESSOR OF MUSIC Thank you for allowing us to evaluate you today. Follow up with paraffin plant sweater operator in 3-5 days for reevaluation.. For pain, use acetaminophen (Tylenol) and ibuprofen. Use the oxycodone as prescribed for breakthrough pain Continue taking the valacyclovir as prescribed [3 times a day] Please read the guidance provided with your discharge instructions. Immediately return to the emergency department with any concerns. ESSOR OF MUSIC * Attachments The following attachments cannot be sent through Care Everywhere. * Genital Herpes (Tanzanian) documented in this encounter Medications at Time of Discharge Medication Sig Dispensed Refills Start Date End Date ALPRAZolam (XANAX) 0.25 MG tabletIndications:Ge neralized anxiety disorder TAKE 1 TABLET BY MOUTH 2 TIMES DAILY NEEDED FOR ANXIETY. 30 tablet 0 11/21/2022 ALPRAZolam (XANAX) 0.5 MG tabletIndications:Ge neralized anxiety disorder Take 1 tablet (0.5 mg) by mouth 2 times daily as needed for anxiety 30 tablet 2 11/30/2022 Biotin 10 MG CAPS 0 busPIRone (BUSPAR) 10 MG tabletIndications:Ge neralized anxiety disorder TAKE 1 TABLET BY MOUTH TWICE A DAY 180 tablet 1 03/29/2023 calcium carbonate (OS-UMA) 500 MG tablet Take 1 tablet by mouth 2 times daily 0 cholecalciferol (VITAMIN D3) 1000 units (25 mcg) capsule Take 1 capsule by mouth daily 0 co-enzyme Q-10 100 MG CAPS capsule Take by mouth daily 0 cyclobenzaprine (FLEXERIL) 10 MG tabletIndications:Rh eumatoid arthritis involving both shoulders with positive rheumatoid factor (H) Take 1 tablet (10 mg) by mouth 3 times daily as needed for muscle spasms 30 tablet 5 11/30/2022 famotidine (PEPCID) 20 MG tablet Take 20 mg by mouth 0 folic acid (FOLVITE) 1 MG tablet Take 1 tablet (1 mg) by mouth daily 0 08/28/2019 glutamine 500 MG capsule Take 500 mg by mouth once 0 hydroxychloroquine (PLAQUENIL) 200 MG tablet Take 200 mg by mouth 2 times daily 0 09/01/2021 KEVZARA 200 MG/1.14ML SOAJ 0 06/16/2021 medical cannabis (Patient's own supply) See Admin Instructions (The purpose of this order is to document that the patient reports taking medical cannabis. This is not a prescription, and is not used to certify that the patient has a qualifying medical condition.) 0 Multiple Vitamin (DAILY VITAMIN PO) Take by mouth daily 0 nicotine (NICODERM CQ) 7 MG/24HR 24 hr patchIndications:Enc ounter for tobacco use cessation counseling Place 1 patch onto the skin every 24 hours 30 patch 2 03/20/2023 nicotine (NICORETTE) 2 MG gumIndications:Encou nter for tobacco use cessation counseling Place 1 each (2 mg) inside cheek every hour as needed for smoking cessation 240 each 1 03/21/2023 nortriptyline (PAMELOR) 50 MG capsuleIndications:R heumatoid arthritis involving both shoulders with positive rheumatoid factor (H) Take 2 capsules (100 mg) by mouth At Bedtime 180 capsule 4 06/20/2022 psyllium 30.9 % POWD Take by mouth daily 0 oxyCODONE (ROXICODONE) 5 MG tablet Take 1 tablet (5 mg) by mouth every 6 hours as needed for pain 10 tablet 0 04/08/2023 04/13/2023 albuterol (PROAIR HFA/PROVENTIL HFA/VENTOLIN HFA) 108 (90 Base) MCG/ACT inhalerIndications:C hest tightness Inhale 1-2 puffs into the lungs every 4 hours as needed for shortness of breath 6.7 g 0 01/01/2023 04/25/2023 guaiFENesin-codeine (ROBITUSSIN AC) 100-10 MG/5ML solutionIndications: Acute cough Take 5-10 mLs by mouth every 4 hours as needed for cough 60 mL 0 01/01/2023 04/25/2023 documented as of this encounter ED Notes * Tan Ryan RN - 04/08/2023 12:32 PM CST Pt states she has genital herpes and was taking anti-viral medication but is having an outbreak. Ptcalled her OB-LEVERMAN and was advised to go to ED anti-viral medication IV infusion. ESSOR OF MUSIC * New Weir MD - 04/08/2023 12:18 PM CST Images from the original note were not included. History Chief Complaint: Vaginal Problem HPI: Samreen Early is a very pleasant 47 year old female presenting with vaginal pain. Patient states she had symptoms of pain and itching around her vagina for around 10 days. She saw her OB nurse practitioner and was started on valacyclovir for presumed genital herpes. She tested negative for HSV 1 and HSV 2 antibodies in her blood work. Viral cultures were obtained and were pending. She has nothad a previous episode of genital herpes. She has not been sexually active for about 1 year. She has tested positive for HPV in the past. She took 2 g of valacyclovir daily for 5 days and yesterday increased to 3 g daily due to symptoms not improving. She is complaining of significant plane around her vulva and her vagina. She has pain with urination. She does not have any urinary retention or difficulty urinating. She does not have any back pain. Apart from the pain she has no other general symptoms. She does have a somewhat decreased appetite and difficulty sleeping due to the pain. She hasalso had intermittent headaches, for which she has been taking acetaminophen. She has not been taking them for the vulvovaginal pain. Patient has history of rheumatoid arthritis and is on immunosuppressants. Patient was advised to present to the emergency department for IV antivirals. Independent Historian: Obtained history regarding the patient's recent clinic visits from OP Dr. Gardiner. Review of External Notes: I personally reviewed notes from the patient's clinic visit dated 03/14/2023 . This provided me with information regarding patient's baseline medical problems. I personally reviewed the patient's chart, including available medication list and available past medical history, past surgical history, family history, and social history. Physical Exam Patient Vitals for the past 24 hrs: BP Temp Temp src Pulse Resp SpO2 Height Weight 04/08/23 1237 (!) 148/84 -- -- -- -- -- -- -- 04/08/23 1234 -- 98 ??F (36.7 ??C) Temporal 109 16 98 % 1.676 m (5' 6) 131.5 kg (290 lb) Physical Exam Vitals and nursing note reviewed. Exam conducted with a reptile keeper present. Constitutional: General: She is in acute distress. Appearance: She is obese. She is not ill-appearing or diaphoretic. Cardiovascular: Rate and Rhythm: Normal rate. Pulmonary: Effort: Pulmonary effort is normal. Genitourinary: Exam position: Prone. Pubic Area: Rash present. Labia: Left: Rash and tenderness present. Neurological: Mental Status: She is alert. Emergency Department Course Imaging & ECG: Laboratory: No ECG performed. No orders to display Labs Ordered and Resulted from Time of ED Arrival to Time of ED Departure - No data to display Procedures None performed Interventions & Assessments: Interventions: Medications HYDROmorphone (PF) (DILAUDID) injection 0.5 mg (has no administration in time range) Assessments: 12:48 PM I obtained history and performed initial assessment of the patient. Independent Interpretation (X-rays, CTs, rhythm strip): None Consultations/Discussion of Management or Tests: I discussed the patient's presentation, assessment and plan with OB Dr. Isabel Gardiner from the patient's OB group. Social Determinants of Health affecting care: None. Disposition: The patient was discharged to home. Impression & Plan Medical Decision Making: Patient presenting with painful vulvovaginal rash. Patient is tearful and uncomfortable on arrival.She is very distressed about this rash. Rash does appear herpetiform in nature. As described above,cultures are pending. HSV is certainly likely and zoster is also on the differential. I do feel thepatient is being treated appropriately with valacyclovir. I did discuss with Dr. Gardiner from the patient's OB group. She was in agreement that the patient does not require IV acyclovir at this time. There is no symptoms or signs of disseminated herpes infection. There is no history of urinary retention. No back pain or neurologic signs or symptoms to suggest transverse myelitis. Feel pain control is of primary concern to the patient. Will plan for further 7-day course of valacyclovir, 3 times daily, along with better pain control with [id number] analgesics, acetaminophen and ibuprofen, along with oxycodone prescription for as needed breakthrough severe pain. Recommend the patient follow-up with her OB next week for reevaluation. Findings were discussed. , Additional verbal instructions were provided. , I discussed specific warning signs and instructed the patient to return to the emergency department if there are any concerns., Understanding of instructions was voiced, questions were answered and the patient was discharged. Diagnosis: ICD-10-CM 1. Vaginal pain R10.2 2. 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 Rash R21 Discharge Medications: New Prescriptions OXYCODONE (ROXICODONE) 5 MG TABLET Take 1 tablet (5 mg) by mouth every 6 hours as needed for pain Scribe Disclosure: Kristi Pride, am serving as a scribe at 12:48 PM on 04/08/2023 to document services personally performed by New Weir MD based on my observations and the provider's statements to me. 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 Scheduled Medication Order 04/06/2023 04/07/2023 04/08/2023 HYDROmorphone (PF) (DILAUDID) injection 0.5 mg (COMPLETED) 0.5 mg, Intravenous, ONCE, On 04/08/23 at 1310, For 1 dose 1346 ($Given - Provi mariah: Jennifer Alex, LISA) documented in this encounter Additional Health Concerns Assessment Noted Time PHQ-9 Depression Total Score: 5 03/02/20 21 7:32 AM PROFESSOR OF MUSIC documented as of this encounter Care Teams Drugless Physician Relationship Specialty Start Date End Date Gigi Myers MD [address] [facility] [place] [address] PCP - General Internal Medicine 05/05/15 Mery Alicia, LISA Personal Advocate & Liaison (PAL) 08/13/20 Gigi Myers MD [address] [facility] [place] [address] Assigned PCP 03/07/21 [place] [address] [place] [address] Assigned Behavioral Health Provider 09/05/21 Donal Bustillos MD [address] [place] [address] Dermatology 09/28/21 Omer Escoto MD [address] [facility] [place] [phone] Ophthalmology 12/20/21 Omer Escoto MD [address] [facility] [place] [phone] Assigned Surgical Provider 08/27/22 documented as of this encounter
--- OUTSIDE RECORDS SUMMARY | 2023-05-11 20:20 | XMS_ITS | Encounter Summary ---
Author Name Unknown Organization [facility] Address [address] [place] [address] Care Team Providers Care Studio Operation Engineer Name Role Phone Gigi Myers MD Primary Care Provider [phone] Mery Alicia RN Unavailable Unavaila ble Gigi Myers MD Unavailable [phone] Paz Pimentel PhD Unavailable [phone] Donal Bustillos MD Unavailable Omer Escoto MD Unavailable [phone] Omer Escoto MD Unavailable [phone] Reason for Visit * Reason Onset Date Comments Patient Request 12/19/2022 Medical gladis morgan Encounter Details Date Type Department Care Team (Late st Contact Info) Description 12/19/2022 [facility] [address] [place] [address] [address] [place] [address] Gigi Myers MD [address] [place] [address] [place] [address] Patient Request (Medical marijuana) Social History Tobacco Use Types Packs/Day Years [...] often do you attend chur ch or taoism services? Never 11/15/2021 Do you belong to any clubs o r organizations such as rastafarian groups, unions, fraternal or athletic groups, or [...] Answer Date Recorded PHQ-2 Score 0 11/30/2022 [facility] - Occupational Stress Questionnaire Answer Date [...] place to sleep or slept in a snf (including now)? No 11/15/2021 Sex and Gender [...] encounter Miscellaneous Notes * Telephone Encounter - Kaycee Mckeon RN - 12/19/2022 9:37 AM CDT Pt calling to request PCP submit yearly certification for pt's medical marijuana license. Pt informs this must be submitted prior to 02/17/23 Routing to PCP to review and advise.. Kaycee Kelly RN documented in this encounter Plan of Treatment Upcoming Encounters Date Type Department Care Team (Late st Contact Info) Description 05/24/2023 10:30 AM SUPERVISOR SPINNING Office Visit [facility] [id number] [place] [phone] [place]ifer Jimenez [place] [id number] [place] [address] documented as of this encounter Visit Diagnoses Not on filedocumented in this encounter Additional Health Concerns Assessment Noted Time PHQ-9 Depression Total Score: 5 03/02/20 21 7:32 AM SUPERVISOR SPINNING documented as of this encounter Care Teams Studio Operation Engineer Relationship Specialty Start Date End Date Gigi Myers MD [address] [facility] [place] [address] PCP - General Internal Medicine 05/05/15 Mery Alicia, RN Personal Advocate & Liaison (PAL) 08/13/20 Gigi Myers MD [address] [facility] [place] [address] Assigned PCP 03/07/21 [place] [address] [place] [address] Assigned Behavioral Health Provider 09/05/21 Donal Bustillos MD [address] [place] [address] Dermatology 09/28/21 Omer Escoto MD [address] [facility] [place] [address] Ophthalmology 12/20/21 Omer Escoto MD [address] [facility] [place] [address] Assigned Surgical Provider 08/27/22 documented as of this encounter
--- OUTSIDE RECORDS SUMMARY | 2023-05-11 20:20 | XMS_ITS | Encounter Summary ---
Author Name Unknown Organization [facility] Address [address] [place] [address] Care Team Providers Care Logistics Engineering Manager Name Role Phone Gigi Myers MD Primary Care Provider [phone] Mery Alicia RN Unavailable Unavaila [facility] Gigi Myers MD Unavailable [phone] Paz Pimentel PhD Unavailable [phone] Donal Bustillos MD Unavailable Omer Escoto MD Unavailable [phone] Omer Escoto MD Unavailable [phone] Reason for Visit * Reason Comments Medication Refill Encounter Details Date Type Department Care Team (Late st Contact Info) Description 03/29/2023 Refill [facility] Julien [address] [place] [address] Drive [address] [place] [address] [place] [address] [place] [address] [place] [address] Medication Refill Social History Tobacco Use Types Packs/Day [...] How often do you attend chur or yarsanism services? Never 11/15/2021 Do you belong to any clubs o r organizations such as yazidi groups, unions, fraternal or athletic groups, or [...] Answer Date Recorded PHQ-2 Score 0 11/30/2022 [facility] Occupational Stress Questionnaire Answer [...] place to sleep or slept in a intermediate (including now)? No 11/15/2021 Adolescent Education Answer [...] st Contact Info) Description 05/24/2023 10:30 AM POWDER PRESS OPERATOR Office Visit [address] [phone] [place]enez [place] [id number] [place] [address] documented as of this encounter Visit Diagnoses Diagnosis Generalized anxiety disorder documented in this encounter Additional Health Concerns Assessment Noted Time PHQ-9 Depression Total Score: 5 03/02/20 21 7:32 AM POWDER PRESS OPERATOR documented as of this encounter Care Teams Logistics Engineering Manager Relationship Specialty Start Date End Date Gigi Myers MD [address] [place] [address] [place] [address] PCP - General Internal Medicine 05/05/15 Mery Alicia, LISA Personal Advocate & Liaison (PAL) 08/13/20 Gigi Myers MD [address] [place] [address] [place] [address] Assigned PCP 03/07/21 [place] [address] [place] [address] Assigned Behavioral Health Provider 09/05/21 Donal Bustillos MD [address] [place] [address] Dermatology 09/28/21 Omer Escoto MD [address] [facility] [place] [phone] Ophthalmology 12/20/21 Omer Escoto MD [address] [facility] [place] [phone] Assigned Surgical Provider 08/27/22 documented as of this encounter
--- OUTSIDE RECORDS SUMMARY | 2023-05-11 20:20 | XMS_ITS | Encounter Summary ---
Author Name Unknown Organization [facility] Address [address] [place] [address] Care Team Providers Care Flyer Builder Name Role Phone Gigi Myers MD Primary Care Provider [phone] Mery Alicia RN Unavailable Unavaila ble Gigi Myers MD Unavailable [phone] Paz Pimentel PhD Unavailable [phone] Donal Bustillos MD Unavailable Omer Escoto MD Unavailable Omer Escoto MD Unavailable [phone] Reason for Referral * Diagnostic Imaging XR (Routine) - Pending Review Specialty Diagnoses / Procedures Referred By Contac t Referred To Contact Radiology. Diagnoses Acute cough Procedures XR Chest 2 Views Jammie Crook PA-C [address] [place] [address] Referral ID Status Reason Start Date Expiration Date V isits Requested Visits Authorized [id number] Pending Review 01/01/2023 01/01/2024 1 1 Reason for Visit * Reason Comments Urgent Care Monday symptoms star grayson - coughing, congestion, pt states her lungs crackle and wheeze when she breathes and worse when she lays down. Neg covid test on Monday. Encounter Details Date Type Department Care Team (Late st Contact Info) Description 01/01/2023 10:05 AM CDT Office Visit [facility] [place] [address] [place] [address] Jammie Crook PA-C [address] [place] [address] Viral URI (Primary Dx); Acute cough; Chest tightness; Immunosuppression (H) Social History Tobacco Use Types Packs/Day Years [...] week 11/15/2021 How often do you attend [facility] or caodaism services? Never 11/15/2021 Do you belong to any clubs o r organizations such as confucianism groups, unions, fraternal or athletic groups, or [...] Answer Date Recorded PHQ-2 Score 0 11/30/2022 [facility] [place] [facility] Occupat ional [facility] - Occupational Stress Questionnaire Answer Date [...] place to sleep or slept in a assisted (including now)? No 11/15/2021 Sex and Gender [...] AM CDT documented as of this encounter Last Filed Vital Signs Vital Sign Reading Time Taken Comments Blood Pressure 136/87 01/01/2023 10:06 AM CDT Pulse 71 01/01/2023 10:06 AM CDT Temperature 36.3 ??C (97.4 ??F) 01/01/2023 10:06 AM C DT Respiratory Rate - - Oxygen Saturation 97% 01/01/2023 10:06 AM CDT Inhaled Oxygen Concentration - - Weight - - Height - - Body Mass Index - - documented in this encounter Patient Instructions * Patient Instructions* Jammie Crook PA-C - 01/01/2023 10:05 AM CDT Images from the original note were not included. Adult Self-Care for Colds Colds are caused by viruses. They can???t be cured with antibiotics. However, you can relieve symptoms and support your body???s efforts to heal itself. No matter which symptoms you have, be sure to drink plenty of fluids (water or clear soup); stop smoking and drinking alcohol; and get plenty of rest. Understand a fever Take your temperature several times a day. If your fever is 100.4??F (38.0??C) for more than a day,call your doctor. Relax, lie down. Go to bed if you want. Just get off your feet and rest. Also, drink plenty of fluids to avoid dehydration. Take acetaminophen or a nonsteroidal anti-inflammatory agent (NSAID), such as ibuprofen. Treat a troubled nose kindly Breathe steam or heated humidified air to open blocked nasal passages. it network engineer a hot shower or usea vaporizer. Be careful not to get burned by the steam. Saline nasal sprays and Mucinex help open a stuffy nose. Antihistamines can also help, but they cancause side effects such as drowsiness and drying of the eyes, nose, and mouth. Soothe a sore throat and cough Gargle every 2 hours with 1/4 teaspoon of salt dissolved in 1/2 cup of warm water. Suck on throat lozenges and cough drops to moisten your throat (those containing menthol work best). Cough medicines are available but it is unclear how effective they actually are. Try honey for cough Take acetaminophen or an NSAID, such as ibuprofen to ease throat pain Ease digestive problems Put fluid back into your body. Take frequent sips of clear liquids such as water or broth. Do not drink beverages with a lot of sugar in them, such as juices and sodas. These can make diarrhea worse.Older children and adults can drink sports drinks. As your appetite returns, you can resume your normal diet. Ask your doctor whether there are any foods you should avoid. When to seek medical care When you first notice symptoms, ask your health care provider if antiviral medications are appropriate. Antibiotics should not be taken for colds or flu. Also, call your doctor if you have any of thefollowing symptoms or if you aren???t feeling better after 7 days: Shortness of breath Pain or pressure in the chest or abdomen Worsening symptoms, especially after a period of improvement Fever of 100.4??F (38.0??C) or higher, or fever that doesn???t go down with medication Sudden dizziness or confusion Severe or continued vomiting Signs of dehydration, including extreme thirst, dark urine, infrequent urination, dry mouth Spotted, red, or very sore throat documented in this encounter Progress Notes * Jammie Crook PA-C - 01/01/2023 10:05 AM CDT Images from the original note were not included. Assessment/Plan: No acute distress or toxicity noted. Lungs CTAB, O2 sat 97%, afebrile. CXR without evidence of pneumonia or pleural effusion per my read. Suspect viral illness. Supportive treatments discussed- continue use of over the counter treatmentssuch as guaifenesin as needed. Also Rx albuterol inhaler due to hx of asthma & subjective sensation of chest tightness. Pt given Duoneb in clinic today with improvement in this. Also Rx Robitussin AC for nighttime use. Discussed that symptoms do overlap with possible COVID-19, and patient was tested for this today. Isolate while awaiting test results. If positive, will be contacted regarding treatment. See patient instructions below. At the end of the encounter, I discussed results, diagnosis, medications. Discussed red flags for immediate return to clinic/ER, as well as indications for follow up if no improvement. Patient understood and agreed to plan. Patient was stable for discharge. ICD-10-CM 1. Viral URI J06.9 2. Acute cough R05.1 XR Chest 2 Views Symptomatic COVID-19 Virus (Coronavirus) by PCR Nose guaiFENesin-codeine (ROBITUSSIN AC) 100-10 MG/5ML solution 3. Chest tightness R07.89 ipratropium - albuterol 0.5 mg/2.5 mg/3 mL (DUONEB) neb solution 3 mL albuterol (PROAIR HFA/PROVENTIL HFA/VENTOLIN HFA) 108 (90 Base) MCG/ACT inhaler 4. Immunosuppression (H) D84.9 Return in about 1 week (around 01/08/2023) for Follow up w/ primary care provider if not better. NEEL Reza, [facility] HPI: Samreen Early is a 47 year old female who presents for evaluation of nasal congestion, cough, and chest tightness onset 2 days ago. She hears a crackling sound when she breathes when lying flat. No treatments tried. Patient reports no fever/chills, myalgias, sore throat, loss of sense of taste or smell, headache, chest pain, shortness of breath, abdominal pain, nausea, vomiting, diarrhea, rash, or any other symptoms. No known sick contacts/COVID exposure. She is on Plaquenil for RA. She has a history of asthma but this does not cause symptoms for her often anymore; she does not have an inhaler currently. Past Medical History: Diagnosis Date Anxiety disorder Gastro-oesophageal reflux disease Kidney stone 05/03/2021 Obesity Uncomplicated asthma Vitals: 01/01/23 1006 BP: 136/87 BP Location: Right arm Patient Position: Sitting Cuff Size: Adult Large Pulse: 71 Temp: 97.4 ??F (36.3 ??C) TempSrc: Tympanic SpO2: 97% Physical Exam Vitals and nursing note reviewed. HENT: Nose: Nose normal. Mouth/Throat: Mouth: Mucous membranes are moist. Pharynx: Oropharynx is clear. Cardiovascular: Rate and Rhythm: Normal rate and regular rhythm. Heart sounds: Normal heart sounds. Pulmonary: Effort: Pulmonary effort is normal. Breath sounds: Normal breath sounds. Neurological: Mental Status: She is alert. Labs/Imaging: No results found for this or any previous visit (from the past 24 hour(s)). No results found for this or any previous visit (from the past 24 hour(s)). CXR - Reviewed and interpreted by me Normal- no infiltrates, effusions, pneumothoraces, cardiomegaly or masses Patient Instructions Adult Self-Care for Colds Colds are caused by viruses. They can???t be cured with antibiotics. However, you can relieve symptoms and support your body???s efforts to heal itself. No matter which symptoms you have, be sure to drink plenty of fluids (water or clear soup); stop smoking and drinking alcohol; and get plenty of rest. Understand a fever Take your temperature several times a day. If your fever is 100.4??F (38.0??C) for more than a day,call your doctor. Relax, lie down. Go to bed if you want. Just get off your feet and rest. Also, drink plenty of fluids to avoid dehydration. Take acetaminophen or a nonsteroidal anti-inflammatory agent (NSAID), such as ibuprofen. Treat a troubled nose kindly Breathe steam or heated humidified air to open blocked nasal passages. it network engineer a hot shower or usea vaporizer. Be careful not to get burned by the steam. Saline nasal sprays and Mucinex help open a stuffy nose. Antihistamines can also help, but they cancause side effects such as drowsiness and drying of the eyes, nose, and mouth. Soothe a sore throat and cough Gargle every 2 hours with 1/4 teaspoon of salt dissolved in 1/2 cup of warm water. Suck on throat lozenges and cough drops to moisten your throat (those containing menthol work best). Cough medicines are available but it is unclear how effective they actually are. Try honey for cough Take acetaminophen or an NSAID, such as ibuprofen to ease throat pain Ease digestive problems Put fluid back into your body. Take frequent sips of clear liquids such as water or broth. Do not drink beverages with a lot of sugar in them, such as juices and sodas. These can make diarrhea worse.Older children and adults can drink sports drinks. As your appetite returns, you can resume your normal diet. Ask your doctor whether there are any foods you should avoid. When to seek medical care When you first notice symptoms, ask your health care provider if antiviral medications are appropriate. Antibiotics should not be taken for colds or flu. Also, call your doctor if you have any of thefollowing symptoms or if you aren???t feeling better after 7 days: Shortness of breath Pain or pressure in the chest or abdomen Worsening symptoms, especially after a period of improvement Fever of 100.4??F (38.0??C) or higher, or fever that doesn???t go down with medication Sudden dizziness or confusion Severe or continued vomiting Signs of dehydration, including extreme thirst, dark urine, infrequent urination, dry mouth Spotted, red, or very sore throat documented in this encounter Plan of Treatment Upcoming Encounters Date Type Department Care Team (Late st Contact Info) Description 05/24/2023 10:30 AM MANAGER ACTIVITIES Office Visit [address] [phone] Dennis Ramachandran Yenifer MD [place] [id number] [place] [address] [phone] documented as of this encounter Procedures Procedure Name Priority Date/Time Associated Diagnosis Comments COVID-19 VIRUS (CORONAVIRUS) BY PCR Routine 01/01/2023 10:52 AM CDT Acute cough documented in this encounter Results * XR Chest 2 Views (01/01/2023 11:05 AM CDT) Anatomical Region Laterality Modality Chest Computed Radiogr aphy 01/01/2023 11:0 5 AM CDT Impressions 01/01/2023 7:10 PM CDT IMPRESSION: Heart is normal in size. Lungs are clear. Narrative 01/01/2023 7:10 PM CDT EXAM: XR CHEST 2 VIEWS LOCATION: [facility] DATE: 01/01/2023 INDICATION: cough, crackling sound when lying flat COMPARISON: 08/03/2015 Procedure Note Prince Williamson MD - 01/01/2023 EXAM: XR CHEST 2 VIEWS LOCATION: [facility] DATE: 01/01/2023 INDICATION: cough, crackling sound when lying flat COMPARISON: 08/03/2015 IMPRESSION: Heart is normal in size. Lungs are clear. Jammie Crook PA-C [facility] DIAGNOST IC IMAGING ORDERABLES * Symptomatic COVID-19 Virus (Coronavirus) by PCR Nose (01/01/2023 10:52 AM CDT) SARS CoV2 PCR Negative Negative 01/02/2023 9:48 AM CDT [facility] Comment:NEGATIVE: SARS-CoV-2 (COVID-19) RNA not detected, presumed negative. Swab NASAL STRUCTURE / Unknown Non-blood Collection / Unknown 01/01/2023 10:52 AM CDT 01/01/2023 10:56 AM CDT Narrative [facility] - 01/02/2023 9:48 AM CDT Testing was performed using the Xpert Xpress SARS-CoV-2 Assay on the [employer]. Additional information about this Emergency Use Authorization (EUA) assay can be found via the Lab Guide. This test should be ordered for the detection of SARS-CoV-2 in individuals who meet SARS-CoV-2 clinical and/or epidemiological criteria as well as from individuals without symptoms or other reasons to suspect COVID-19. Test performance for asymptomatic patients has only been established in anterior nasal swab specimens. This test is for in vitro diagnostic use under the FDA EUA for laboratories certified under CLIA to perform high complexity testing. This test has not been FDA cleared or approved. A negative result does not rule out the presence of PCR inhibitors in the specimen or target RNA concentration below the limit of detection for the assay. The possibility of a false negative should be considered if the patient's recent exposure or clinical presentation suggests COVID-19. This test was validated by [employer]. These Laboratories are certified under the Clinical Laboratory Improvement Amendments (CLIA) as qualified to perform high complexity testing. Jammie Crook PA-C LAB - MICRO GENERAL ORDERABLES [facility] Inf. Diseases Diag. Lab [address] [facility], [address] [place] [address], [facility] [phone] documented in this encounter Visit Diagnoses Diagnosis Viral URI- Primary Acute upper respiratory infections of unspecified site Acute cough Chest tightness Other chest pain Immunosuppression (H24) Unspecified disorder of immune mechanism Acute cough documented in this encounter Administered Medications Inactive Administered Medications - up to 3 most recent administrations Medication Order MAR Action Action Date Dose Rate Site ipratropium - albuterol 0.5 mg/2.5 mg/3 mL (DUONEB) neb solution 3 mL 3 mL, Nebulization, ONCE, On 01/01/23 at 1100, For 1 dose $Given 01/01/2023 11:02 AM CDT 3 mLs documented in this encounter Additional Health Concerns Assessment Noted Time PHQ-9 Depression Total Score: 5 03/02/20 21 7:32 AM MANAGER ACTIVITIES documented as of this encounter Care Teams Flyer Builder Relationship Specialty Start Date End Date Gigi Myers MD [facility] [place] [address] PCP - General Internal Medicine 05/05/15 Mery Alicia RN Personal Advocate & Liaison (PAL) 08/13/20 Gigi Myers MD [address] [facility] [place] [address] Assigned PCP 03/07/21 [place] [address] [place] [address] Assigned Behavioral Health Provider 09/05/21 Donal Bustillos MD [address] [place] [address] Dermatology 09/28/21 Omer Escoto MD [address] [place] [address] Ophthalmology 12/20/21 Omer Escoto MD [address] [place] [address] Assigned Surgical Provider 08/27/22 documented as of this encounter
--- OUTSIDE RECORDS SUMMARY | 2023-05-11 20:20 | XMS_ITS | Encounter Summary ---
Author Name Unknown Organization [facility] Address [address] [place] [address] Care Team Providers Care Toxics Program Officer Name Role Phone Gigi Myers MD Primary Care Provider [phone] Mery Alicia RN Unavailable Unavaila ble Gigi Myers MD Unavailable [phone] Paz Pimentel PhD Unavailable [phone] Donal Bustillos MD Unavailable [phone] Omer Escoto MD Unavailable [phone] Omer Escoto MD Unavailable [phone] Encounter Details Date Type Department Care Team (Latest Contact Info) Description 01/01/2023 Travel Social History Tobacco Use Types Packs/Day [...] week 11/15/2021 How often do you attend [facility] or mandaen services? Never 11/15/2021 Do you belong to any clubs o r organizations such as scientology groups, unions, fraternal or athletic groups, or [...] Answer Date Recorded PHQ-2 Score 0 11/30/2022 [facility] Occupat ional Health - [...] place to sleep or slept in a retirement (including now)? No 11/15/2021 Sex and Gender [...] st Contact Info) Description 05/24/2023 10:30 AM BRAKE LINING FINISHER ASBESTOS Office Visit [address] [phone] [place] [address] [place] [address] documented as of this encounter Visit Diagnoses Not on filedocumented in this encounter Additional Health Concerns Infection Onset Date Last Indicated Resolved Time Rule Out COVID-19 01/01/2023 01/01/2023 01/02/2023 9:48 AM CDT Assessment Noted Time PHQ-9 Depression Total Score: 5 03/02/20 21 7:32 AM BRAKE LINING FINISHER ASBESTOS documented as of this encounter Care Teams Toxics Program Officer Relationship Specialty Start Date End Date Gigi Myers MD [address] [place] [address] [place] [address] PCP - General Internal Medicine 05/05/15 Mery Alicia, LISA Personal Advocate & Liaison (PAL) 08/13/20 Gigi Myers MD [address] [place] [address] [place] [address] Assigned PCP 03/07/21 [place] [address] [place] [address] Assigned Behavioral Health Provider 09/05/21 Donal Bustillos MD [address] [facility] [place], [place] [address] Dermatology 09/28/21 Omer Escoto MD [address] [facility] [place] [address] Ophthalmology 12/20/21 Omer Escoto MD [address] [facility] [place] [address] Assigned Surgical Provider 08/27/22 documented as of this encounter
--- OUTSIDE RECORDS SUMMARY | 2023-05-11 20:20 | XMS_ITS | Encounter Summary ---
Author Name Unknown Organization [facility] Address [address] [place] [address]. [place] [address] Care Team Providers Care Relay Telegrapher Name Role Phone Gigi Myers MD Primary Care Provider [phone] Mery Alicia RN Unavailable Unavaila ble Gigi Myers MD Unavailable [phone] Paz Pimentel PhD Unavailable [phone] Donal Bustillos MD Unavailable Omer Escoto MD Unavailable [phone] Omer Escoto MD Unavailable [phone] Encounter Details Date Type Department Care Team (Late st Contact Info) Description 04/12/2023 MyC Medical Advice [address] [place] [phone] Vidal Floyd, RN Social History Tobacco Use Types Packs/Day Years [...] often do you attend chur ch or mosque services? Never 11/15/2021 Do you belong to any clubs o r organizations such as denominational groups, unions, fraternal or athletic groups, or school groups? No 11/15/2021 Attends Club or Organization Meetings Not on bahrat e 11/15/2021 Are you , , di [...] Answer Date Recorded PHQ-2 Score 0 11/30/2022 [facility] Occupat ional Health - Occupational Stress [...] money to buy more. Never true 11/16/19 Within the past 12 months, t he [...] st Contact Info) Description 05/24/2023 10:30 AM LEARNING CENTER INSTRUCTOR Office Visit [facility] [id number] [place] [phone] [place] [address] [place] [address] documented as of this encounter Visit Diagnoses Not on filedocumented in this encounter Additional Health Concerns Assessment Noted Time PHQ-9 Depression Total Score: 5 03/02/20 21 7:32 AM LEARNING CENTER INSTRUCTOR documented as of this encounter Care Teams Relay Telegrapher Relationship Specialty [place] [address] [place] [address] [place] [address] PCP - General Internal Medicine 05/05/15 Mery Alicia, LISA Personal Advocate & Liaison (PAL) 08/13/20 Gigi Myers MD [address] [facility] [place] [address] Assigned PCP 03/07/21 [place] [address] [place] [address] Assigned Behavioral Health Provider 09/05/21 Donal [facility]ustillos MD [address] [facility] [place] [address] Dermatology 09/28/21 Omer Escoto MD [address] [facility] [place] [address] Ophthalmology 12/20/21 Omer Escoto MD [address] [facility] [place] [address] Assigned Surgical Provider 08/27/22 documented as of this encounter
--- OUTSIDE RECORDS SUMMARY | 2023-05-11 20:20 | XMS_ITS | Encounter Summary ---
Author Name Unknown Organization [facility] Address [address] [place] [address] Care Team Providers Care Folder Operator Name Role Phone Gigi Myers MD Primary Care Provider [phone] Mery Alicia RN Unavailable Unavaila ble Gigi Myers MD Unavailable [phone] Paz Pimentel PhD Unavailable [phone] Doanl Bustillos MD Unavailable Omer Escoto MD Unavailable [phone] Omer Escoto MD Unavailable [phone] Encounter Details Date Type Department Care Team (Late st Contact Info) Description 12/19/2022 MyC Medical Advice [facility] [address] [facility] [address] [place] [phone] Gigi Myers MD [address] [facility] [place] [address] Social History Tobacco Use [...] often do you attend chur ch or hinduism services? Never 11/15/2021 Do you belong to any clubs o r organizations such as faith groups, unions, fraternal or athletic groups, or [...] Answer Date Recorded PHQ-2 Score 0 11/30/2022 [facility] of Occupat ional Health - Occupational Stress [...] in a intermediate (including now)? No 11/15/2021 Sex and Gender [...] st Contact Info) Description 05/24/2023 10:30 AM GREIGE GOODS MARKER Office Visit [address] [phone] [place] [id number] [place] [address] documented as of this encounter Visit Diagnoses Not on filedocumented in this encounter Additional Health Concerns Infection Onset Date Last Indicated Resolved Time Rule Out COVID-19 01/01/2023 01/01/2023 01/02/2023 9:48 AM CDT Assessment Noted Time PHQ-9 Depression Total Score: 5 03/02/20 21 7:32 AM GREIGE GOODS MARKER documented as of this encounter Care Teams Folder Operator Relationship Specialty Start Date End Date Gigi Myers MD [address] [place] [address] [place] [address] PCP - General Internal Medicine 05/05/15 Mery Alicia, RN Personal Advocate & Liaison (PAL) 08/13/20 Gigi Myers MD [address] [facility] [place] [address] Assigned PCP 03/07/21 [place] [address] [place] [address] Assigned Behavioral Health Provider 09/05/21 Donal Bustillos MD [address] [facility] [address] Dermatology 09/28/21 Omer Escoto MD [address] [facility] [place] [address] Ophthalmology 12/20/21 Omer Escoto MD [address] [facility] [place] [address] Assigned Surgical Provider 08/27/22 documented as of this encounter
--- OUTSIDE RECORDS SUMMARY | 2023-05-11 20:20 | XMS_ITS | Encounter Summary ---
Author Name Unknown Organization [facility] Address [address] [place] [address] Care Team Providers Care Senior Data Modeler Name Role Phone Gigi Myers MD Primary Care Provider [phone] Mery Alicia RN Unavailable Unavaila ble Gigi Myers MD Unavailable [phone] Paz Pimentel PhD Unavailable [phone] Donal Bustillos MD Unavailable + [phone] Omer Escoto MD Unavailable [phone] Omer Escoto MD Unavailable [phone] Encounter Details Date Type Department Care Team (Latest Contact Info) Description 04/08/2023 Travel Social History Tobacco Use Types Packs/Day [...] week 11/15/2021 How often do you attend [facility] or amish services? Never 11/15/2021 Do you belong to any clubs o r organizations such as buddhist groups, unions, fraternal or athletic groups, or [...] Answer Date Recorded PHQ-2 Score 0 11/30/2022 [facility] Occupat ional Health - Occupational Stress [...] place to sleep or slept in a [place] health care facility (including now)? No 11/15/2021 Adolescent Education Answer [...] st Contact Info) Description 05/24/2023 10:30 AM TOP WADDY Office Visit [address] [phone] [place] [id number] [place] [id number] documented as of this encounter Visit Diagnoses Not on filedocumented in this encounter Additional Health Concerns Assessment Noted Time PHQ-9 Depression Total Score: 5 03/02/20 21 7:32 AM TOP WADDY documented as of this encounter Care Teams Senior Data Modeler Relationship Specialty [place] [address] [place] [address] [place] [address] PCP - General Internal Medicine 05/05/15 Mery Alicia, LISA Personal Advocate & Liaison (PAL) 08/13/20 Gigi Myers MD [address] [facility] [place] [address] Assigned PCP 03/07/21 [place] [address] [place] [address] Assigned Behavioral Health Provider 09/05/21 Donal [facility]illos MD [facility] [address] Dermatology 09/28/21 Omer Escoto MD [address] [place] [address] Ophthalmology 12/20/21 Omer Escoto MD [address] [place] [address] Assigned Surgical Provider 08/27/22 documented as of this encounter
--- OUTSIDE RECORDS SUMMARY | 2023-05-11 20:20 | XMS_ITS | Encounter Summary ---
Author Name Unknown Organization [facility] Address [address] [place] [address] Care Team Providers Care Lpn Instructor Name Role Phone Gigi Myers MD Primary Care Provider [phone] Mery Alicia RN Unavailable Unavaila ble Gigi Myers MD Unavailable [phone] Paz Pimentel PhD Unavailable [phone] Donal Bustillos MD Unavailable Omer Escoto MD Unavailable Omer Escoto MD Unavailable [phone] Reason for Visit * Diagnostic Imaging XR (Routine) - Pending Review Specialty Diagnoses / Procedures Referred By Contac t Referred To Contact Radiology. Diagnoses Acute cough Procedures XR Chest 2 Views Jammie Crook PA-C [address] [place] [address] Referral ID Status Reason Start Date Expiration Date V isits Requested Visits Authorized [id number] Pending Review 01/01/2023 01/01/2024 1 1 Encounter Details Date Type Department Care Team (Late st Contact Info) Description 01/01/2023 10:55 AM CDT Ancillary Procedure [address] [address] Jammie Crook PA-C [address] [place] [address] Acute cough Social History Tobacco Use Types Packs/Day Years [...] How often do you attend chur or hoahaoism services? Never 11/15/2021 Do you belong to any clubs o r organizations such as hoahaoism groups, unions, fraternal or athletic groups, or [...] Answer Date Recorded PHQ-2 Score 0 11/30/2022 [facility] of Occupat ional Health - Occupational Stress [...] place to sleep or slept in a nursing home (including now)? No 11/15/2021 Sex and Gender [...] st Contact Info) Description 05/24/2023 10:30 AM HOGSHEAD SALVAGE Office Visit [facility] [id number] [place] [phone] Dennis Ramachandran [place] [address] [address] [place], [place] [phone] documented as of this encounter Procedures Procedure Name Priority Date/Time Associated Diagnosis Comments XR CHEST 2 VIEWS Routine 01/01/2023 11:0 5 AM CDT Acute cough documented in this encounter Results * XR Chest 2 Views (01/01/2023 11:05 AM CDT) Anatomical Region Laterality Modality Chest Computed Radiogr aphy 01/01/2023 11:0 5 AM CDT Impressions 01/01/2023 7:10 PM CDT IMPRESSION: Heart is normal in size. Lungs are clear. Narrative 01/01/2023 7:10 PM CDT EXAM: XR CHEST 2 VIEWS LOCATION: [facility] DATE: 01/01/2023 INDICATION: cough, crackling sound when lying flat COMPARISON: 08/03/2015 Procedure Note Prince Williamson MD - 01/01/2023 EXAM: XR CHEST 2 VIEWS LOCATION: [facility] DATE: 01/01/2023 INDICATION: cough, crackling sound when lying flat COMPARISON: 08/03/2015 IMPRESSION: Heart is normal in size. Lungs are clear. Jammie Crook PA-C IM DIAGNOST IC IMAGING ORDERABLES documented in this encounter Visit Diagnoses Diagnosis Acute cough documented in this encounter Additional Health Concerns Infection Onset Date Last Indicated Resolved Time Rule Out COVID-19 01/01/2023 01/01/2023 01/02/2023 9:48 AM CDT Assessment Noted Time PHQ-9 Depression Total Score: 5 03/02/20 21 7:32 AM HOGSHEAD SALVAGE documented as of this encounter Care Teams Lpn Instructor Relationship Specialty Start Date End Date Gigi Myers MD [address] [facility] [place] [address] PCP - General Internal Medicine 05/05/15 Mery Alicia, LISA Personal Advocate & Liaison (PAL) 08/13/20 Gigi Myers MD [address] [facility] [place] [address] Assigned PCP 03/07/21 [place] [address] [place] [address] Assigned Behavioral Health Provider 09/05/21 Donal Bustillos MD [address] [place] [address] Dermatology 09/28/21 Omer Escoto MD [address] [facility] [place] [address] Ophthalmology 12/20/21 Omer Escoto MD [address] [facility] [place] [address] Assigned Surgical Provider 08/27/22 documented as of this encounter
--- OUTSIDE RECORDS SUMMARY | 2023-05-11 20:20 | XMS_ITS | Encounter Summary ---
Author Name Unknown Organization [facility] Address [address] [place] [address] Care Team Providers Care Acupressurist Name Role Phone Gigi Myers MD Primary Care Provider [phone] Mery Alicia RN Unavailable Unavaila ble Gigi Myers MD Unavailable [phone] Paz Pimentel PhD Unavailable [phone] Donal Bustillos MD Unavailable Omer Escoto MD Unavailable [phone] Omer Escoto MD Unavailable [phone] Reason for Visit * Reason Onset Date Comments Patient Request 04/12/2023 Encounter Details Date Type Department Care Team (Late st Contact Info) Description 04/12/2023 Telephone [facility] Julien [address] [facility] [address] [place] [address] Gigi Myers MD [address] [facility] [place] [address] Patient Request Social History Tobacco Use Types Packs/Day [...] How often do you attend chur or synagogue services? Never 11/15/2021 Do you belong to any clubs o r organizations such as moravian groups, unions, fraternal or athletic groups, or [...] Answer Date Recorded PHQ-2 Score 0 11/30/2022 [facility] of Occupat ional Health - Occupational [...] place to sleep or slept in a fci (including now)? No 11/15/2021 Adolescent Education Answer Date Record ed Getting School Help Needed Not on file 01/16 Sex and Gender Information Value Date Recorded Sex Assigned at Not on file Gender Identity Not on file Sexual Orientation Not on file documented as of this encounter Miscellaneous Notes * Telephone Encounter - Vidal Floyd RN - 04/12/2023 5:09 PM CST Patient calling, requesting order for shingles testing. Patient is seeing her OB provider tomorrow,but states OB provider would not place the order. Patient believes she has shingles in her vagina on the left side. Patient seeing outside [facility] provider regarding vaginal symptoms, wants to have shingles testing ordered. RN advised to ask OB provider to place order for testing. Patient states testing for this would be outside their scope. RN advised e-visit to Dr. Myers to discuss further and request testing. E-visit instructions sent to patient. Vidal Dinero RN 04/12/2023 at 5:10 PM CIAL REGISTRAR documented in this encounter Plan of Treatment Upcoming Encounters Date Type Department Care Team (Late st Contact Info) Description 05/24/2023 10:30 AM JUDICIAL REGISTRAR Office Visit [address] [address] [place] [address] [place] [address] documented as of this encounter Visit Diagnoses Not on filedocumented in this encounter Additional Health Concerns Assessment Noted Time PHQ-9 Depression Total Score: 5 03/02/20 21 7:32 AM JUDICIAL REGISTRAR documented as of this encounter Care Teams Acupressurist Relationship Specialty [place] [address] [place] [address] [place] [address] PCP - General Internal Medicine 05/05/15 Mery Alicia, LISA Personal Advocate & Liaison (PAL) 08/13/20 Gigi Myers MD [address] [place] [address] [place] [address] Assigned PCP 03/07/21 [place] [address] [place] [address] Assigned Behavioral Health Provider 09/05/21 Donal Bustillos MD 5200 [place] [address] Dermatology 09/28/21 Omer Escoto MD [address] [facility] [place] [address] Ophthalmology 12/20/21 Omer Escoto MD [address] [facility] [place] [address] Assigned Surgical Provider 08/27/22 documented as of this encounter
--- OUTSIDE RECORDS SUMMARY | 2023-05-11 20:20 | XMS_ITS | Encounter Summary ---
Author Name Unknown Organization [facility] Address [address] [place] [address] Care Team Providers Care Hardware Manager Name Role Phone Gigi Myers MD Primary Care Provider [phone] Mery Alicia RN Unavailable Unavaila ble Gigi Myers MD Unavailable [phone] Paz Pimentel PhD Unavailable [phone] Donal Bustillos MD Unavailable Omer Escoto MD Unavailable [phone] Omer Escoto MD Unavailable [phone] Reason for Visit * Reason Onset Date Comments Medication Question 03/20/2023 Requesting m ed for smoking cessation Encounter Details Date Type Department Care Team (Late st Contact Info) Description 03/20/2023 Telephone [facility] Julien [address] [place] [address] Drive [address] [place] [address] Gigi Myers MD [address] [place] [address] [place] [address] Medication Question (Requesting med for smoking cessation ) Social History Tobacco Use Types Packs/Day [...] often do you attend chur ch or spiritism services? Never 11/15/2021 Do you belong to any clubs o r organizations such as rastafari groups, unions, fraternal or athletic groups, or [...] PHQ-2 Score 0 11/30/2022 [facility] Questionnaire Answer Date Recorded [...] a nursing home (including now)? No 11/15/2021 Adolescent Education Answer Date Record ed Getting School Help Needed Not on file 01/16 Sex and Gender Information Value Date Recorded Sex Assigned at Not on file Gender Identity Not on file Sexual Orientation Not on file documented as of this encounter Miscellaneous Notes * Telephone Encounter - Roslyn Peñaloza - 03/21/2023 12:16 PM CST 1st attempt : Lvm that rx was sent to pts pharmacy. Roslyn Peñaloza on 03/21/2023 at 12:17 PM SINGER * Telephone Encounter - Gigi Myers MD - 03/21/2023 10:28 AM CST Nicotine gum rx was sent as well. Please let her know, and also that she should not use both patches and gum at the same time. SINGER * Telephone Encounter - Gigi Myers MD - 03/20/2023 1:49 PM CST Please call: I sent a prescription for 7 [facility] nicotine patches to [facility]. She may use them for up to 3 months. SINGER * Telephone Encounter - Mery Alicia RN - 03/20/2023 9:14 AM POP SINGER Pt calling to request rx or OTC options for smoking cessation. She has been smoking half a pack of cigarette a day, smoking for about 1.5 yrs now. She quit smoking many years ago & restarted smoking last year. Requesting help to quit smoking. Offered [facility] to discuss options, pt declined visit. TAMERA was on 11/30/22. - please advise on smoking cessation options. Pended pharmacy. Thanks. Need to call back pt at [phone] with 's recommendation. LISA Ordonez Patient Advocate Liason (PAL) [facility] Ph. [phone] / Fax. [phone] SINGER documented in this encounter Plan of Treatment Upcoming Encounters Date Type Department Care Team (Late st Contact Info) Description 05/24/2023 10:30 AM POP SINGER Office Visit [address] [phone] [place] [address] [place] [address] documented as of this encounter Visit Diagnoses Diagnosis Encounter for tobacco use cessation counseling- Primary documented in this encounter Additional Health Concerns Assessment Noted Time PHQ-9 Depression Total Score: 5 03/02/20 21 7:32 AM POP SINGER documented as of this encounter Care Teams Hardware Manager Relationship Specialty Start Date End Date Gigi Myers MD [address] [place] [address] [place] [address] PCP - General Internal Medicine 05/05/15 Mery Alicia RN Personal Advocate & Liaison (PAL) 08/13/20 Gigi Myers MD [address] [place] [address] [place] [address] Assigned PCP 03/07/21 [place] [address] [place] [address] Assigned Behavioral Health Provider 09/05/21 Donal Bustillos MD 5[address] [place] [address] Dermatology 09/28/21 Omer Escoto MD [address] [facility] [place] [phone] Ophthalmology 12/20/21 Omer Escoto MD [address] [facility] [place] [phone] Assigned Surgical Provider 08/27/22 documented as of this encounter
--- OUTSIDE RECORDS SUMMARY | 2023-05-11 20:21 | XMS_ITS | Encounter Summary ---
Author Name Unknown Organization [facility] Address [address] [place] [address] Care Team Providers Care Dance Professor Name Role Phone Gigi Myers MD Primary Care Provider [phone] Mery Alicia RN Unavailable Unavaila ble Gigi Myers MD Unavailable [phone] Paz Pimentel PhD Unavailable [phone] Donal Bustillos MD Unavailable [phone] Omer Escoto MD Unavailable [phone] Omer Escoto MD Unavailable [phone] Encounter Details Date Type Department Care Team (Latest Contact Info) Description 09/20/2022 Travel Social History Tobacco Use Types Packs/Day [...] How often do you attend [facility] or episcopal services? Never 11/15/2021 Do you belong to any clubs o r organizations such as yazdanism groups, unions, fraternal or athletic groups, or [...] PHQ-2 Answer Date Recorded PHQ-2 Score 0 06/20/2022 [facility] of Occupat ional [facility] - Occupational Stress Questionnaire Answer [...] place to sleep or slept in a half-way (including now)? No 11/15/2021 Sex and Gender Information Value Date Recorded Sex Assigned at Not on file Gender Identity Not on file Sexual Orientation Not on file COVID-19 Exposure Response Date Recorded In the last 10 days, have yo u been in contact with someone who was confirmed or suspected to have Coronavirus/COVID-19? No / Unsure 09/20/2022 7:34 AM CDT documented as of this encounter Plan of Treatment Upcoming Encounters Date Type Department Care Team (Late st Contact Info) Description 05/24/2023 10:30 AM ORACLE HRMS CONSULTANT Office Visit [address] [address] [place] [address] [place] [address] documented as of this encounter Visit Diagnoses Not on filedocumented in this encounter Additional Health Concerns Assessment Noted Time PHQ-9 Depression Total Score: 5 03/02/20 21 7:32 AM ORACLE HRMS CONSULTANT documented as of this encounter Care Teams Dance Professor Relationship Specialty Start Date End Date Gigi Myers MD [address] [place] [address] [place] [address] PCP - General Internal Medicine 05/05/15 Mery Alicia, LISA Personal Advocate & Liaison (PAL) 08/13/20 Gigi Myers MD [address] [facility] [place] [address] Assigned PCP 03/07/21 Paz P[place] [address] [facility] [place] [address] Assigned Behavioral Health Provider 09/05/21 Donal Bustillos MD 5200 [place] [address] Dermatology 09/28/21 Omer Escoto MD [address] [facility] [place] [address] Ophthalmology 12/20/21 Omer Escoto MD [address] [facility] [place] [address] Assigned Surgical Provider 08/27/22 documented as of this encounter
--- OUTSIDE RECORDS SUMMARY | 2023-05-11 20:21 | XMS_ITS | Encounter Summary ---
Author Name Unknown Organization [facility] Address [address] [place] [address] Care Team Providers Care Auditor Internal Name Role Phone Gigi Myers MD Primary Care Provider [phone] Mery Alicia RN Unavailable Unavaila ble Gigi Myers MD Unavailable [phone] Paz Pimentel PhD Unavailable [phone] Donal Bustillos MD Unavailable [phone] Omer Escoto MD Unavailable [phone] Omer Escoto MD Unavailable [phone] Encounter Details Date Type Department Care Team (Latest Contact Info) Description 08/19/2022 Travel Social History Tobacco Use Types Packs/Day [...] week 11/15/2021 How often do you attend [facility] or orthodoxy services? Never 11/15/2021 Do you belong to any clubs o r organizations such as christian groups, unions, fraternal or athletic groups, or [...] Answer Date Recorded PHQ-2 Score 0 06/20/2022 [facility] of Occupat ional [facility] - Occupational Stress Questionnaire Answer Date Recorded [...] in a penitentiary (including now)? No 11/15/2021 Sex and Gender Information Value Date Recorded Sex Assigned at Not on file Gender Identity Not on file Sexual Orientation Not on file COVID-19 Exposure Response Date Recorded In the last 10 days, have yo u been in contact with someone who was confirmed or suspected to have Coronavirus/COVID-19? No / Unsure 08/19/2022 9:18 AM CDT documented as of this encounter Plan of Treatment Upcoming Encounters Date Type Department Care Team (Late st Contact Info) Description 05/24/2023 10:30 AM BRUSH FABRICATION SUPERVISOR Office Visit [address] [address] [place] [address] [place] [address] documented as of this encounter Visit Diagnoses Not on filedocumented in this encounter Additional Health Concerns Assessment Noted Time PHQ-9 Depression Total Score: 5 03/02/20 21 7:32 AM BRUSH FABRICATION SUPERVISOR documented as of this encounter Care Teams Auditor Internal Relationship Specialty Start Date End Date Gigi Myers MD [address] [place] [address] [place] [address] PCP - General Internal Medicine 05/05/15 Mery Alicia, LISA Personal Advocate & Liaison (PAL) 08/13/20 Gigi Myers MD [address] [facility] [place] [address] Assigned PCP 03/07/21 [place] [address] [address] [place] [address] Assigned Behavioral Health Provider 09/05/21 Donal Bustillos MD 5200 [place] [address] Dermatology 09/28/21 Omer Escoto MD [address] [facility] [place] [address] Ophthalmology 12/20/21 Omer Escoto MD [address] [facility] [address] Assigned Surgical Provider 03/05/22 08/19/22 documented as of this encounter
--- OUTSIDE RECORDS SUMMARY | 2023-05-11 20:21 | XMS_ITS | Encounter Summary ---
Author Name Unknown Organization [facility] Address [facility] [place] [address] Care Team Providers Care Beehive Kiln Supervisor Name Role Phone Gigi Myers MD Primary Care Provider [phone] Mery Alicia RN Unavailable Unavaila ble Gigi Myers MD Unavailable [phone] Paz Pimentel PhD Unavailable [phone] Donal Bustillos MD Unavailable [phone] Omer Escoto MD Unavailable [phone] Omer Escoto MD Unavailable [phone] Reason for Visit * Diagnostic Imaging XR (Routine) - Pending Review Specialty Diagnoses / Procedures Referred By Contac t Referred To Contact Radiology. Diagnoses Hip pain Procedures XR Pelvis and Hip Left 1 View XR Hip Left 2-3 Views Ulysses Maldonado MD [facility] [address] [facility] [address] [place] [address] Referral ID Status Reason Start Date Expiration Date V isits Requested Visits Authorized [id number] Pending Review 09/13/2022 09/13/2023 1 1 Encounter Details Date Type Department Care Team (Late st Contact Info) Description 09/20/2022 7:40 AM CDT Ancillary Procedure [address] [place] [address] Ulysses Maldonado MD [facility] [address] LISA [address] [place] [address] Hip pain Social History Tobacco Use Types Packs/Day Years [...] How often do you attend chur or mandaen services? Never 11/15/2021 Do you belong to any clubs o r organizations such as congregation groups, unions, fraternal or athletic groups, or [...] Answer Date Recorded PHQ-2 Score 0 06/20/2022 [facility] of Occupat ional Health - Occupational Stress [...] st Contact Info) Description 05/24/2023 10:30 AM ADULT SECONDARY EDUCATION INSTRUCTOR Office Visit [address] [phone] [place] [id number] [place] [address] documented as of this encounter Procedures Procedure Name Priority Date/Time Associated Diagnosis Comments XR PELVIS AND HIP LEFT 1 VIEW Routine 09/20/2022 7:45 AM CDT Hip pain documented in this encounter Results * XR Pelvis and Hip Left 1 View (09/20/2022 7:45 AM CDT) Anatomical Region Laterality Modality Abdomen/Pelvis Left Computed Radiogr aphy Impressions 09/20/2022 7:55 AM CDT IMPRESSION: Both hips negative for fracture. Pelvis negative for fracture. IUD. JOSIE NAGY MD SYSTEM ID: [id number] Narrative 09/20/2022 7:55 AM CDT XR PELVIS AND HIP LEFT 1 VIEW 09/20/2022 7:45 AM HISTORY: Ap pelvic with hip left 2 view; Hip pain COMPARISON: None. Procedure Note Josie Nagy MD - 09/20/2022 XR PELVIS AND HIP LEFT 1 VIEW 09/20/2022 7:45 AM HISTORY: Ap pelvic with hip left 2 view; Hip pain COMPARISON: None. IMPRESSION: Both hips negative for fracture. Pelvis negative for fracture. IUD. JOSIE NAGY MD SYSTEM ID: [id number] Ulysses Maldonado MD IMG DIAGNOSTIC IMAGI NG ORDERABLES documented in this encounter Visit Diagnoses Diagnosis Hip pain Pain in joint, pelvic region and thigh documented in this encounter Additional Health Concerns Assessment Noted Time PHQ-9 Depression Total Score: 5 03/02/20 21 7:32 AM ADULT SECONDARY EDUCATION INSTRUCTOR documented as of this encounter Care Teams Beehive Kiln Supervisor Relationship Specialty Start Date End Date Gigi Myers MD [address] [place] [address] [place] [address] PCP - General Internal Medicine 05/05/15 Mery Alicia, LISA Personal Advocate & Liaison (PAL) 08/13/20 Gigi Myers MD [address] [place] [address] [place] [address] Assigned PCP 03/07/21 [place] [address] [place] [address] Assigned Behavioral Health Provider 09/05/21 Donal Bustillos MD 5[address] [facility] [place] [address] Dermatology 09/28/21 Omer Escoto MD [address] [facility] [place] [place] [address] Ophthalmology 12/20/21 Omer Escoto MD [address] [facility] [place] [address] Assigned Surgical Provider 08/27/22 documented as of this encounter
--- OUTSIDE RECORDS SUMMARY | 2023-05-11 20:21 | XMS_ITS | Encounter Summary ---
Author Name Unknown Organization [facility] Address [address] [place] [address] Care Team Providers Care Routing Machine Operator Name Role Phone Gigi Myers MD Primary Care Provider [phone] Mery Alicia RN Unavailable Unavaila [facility] Gigi Myers MD Unavailable [phone] Paz Pimentel PhD Unavailable [phone] Donal Bustillos MD Unavailable Omer Escoto MD Unavailable [phone] Omer Escoto MD Unavailable [phone] Reason for Visit * Reason Comments Medication Refill Encounter Details Date Type Department Care Team (Late st Contact Info) Description 11/21/2022 Refill [facility] Julien [address] [place] [address] Drive [address] [place] [address] [place] [address] [place] [address] [place] [address] Medication Refill Social History [...] How often do you attend chur or latter day services? Never 11/15/2021 Do you belong to any clubs o r organizations such as evangelical groups, unions, fraternal or athletic groups, or [...] Answer Date Recorded PHQ-2 Score 0 06/20/2022 [facility] - Occupational Stress Questionnaire Answer Date [...] place to sleep or slept in a usp (including now)? No 11/15/2021 Sex and Gender Information Value Date Recorded Sex Assigned at Not on file Gender Identity Not on file Sexual Orientation Not on file documented as of this encounter Plan of Treatment Upcoming Encounters Date Type Department Care Team (Late st Contact Info) Description 05/24/2023 10:30 AM SPECIAL MACHINE OPERATOR Office Visit [address] [address] [place] [id number] [place] [id number] documented as of this encounter Visit Diagnoses Diagnosis Generalized anxiety disorder documented in this encounter Additional Health Concerns Assessment Noted Time PHQ-9 Depression Total Score: 5 03/02/20 21 7:32 AM SPECIAL MACHINE OPERATOR documented as of this encounter Care Teams Routing Machine Operator Relationship Specialty Start Date End Date Gigi Myers MD [address] [place] [address] [place] [address] PCP - General Internal Medicine 05/05/15 Mery Alicia, LISA Personal Advocate & Liaison (PAL) 08/13/20 Gigi Myers MD [address] [place] [address] [place] [address] Assigned PCP 03/07/21 [place] [address] [place] [address] Assigned Behavioral Health Provider 09/05/21 Donal Bustillos MD [address] [facility] [place], [place] [address] Dermatology 09/28/21 Omer Escoto MD [address] [facility] [place] [address] Ophthalmology 12/20/21 Omer Escoto MD [address] [facility] [place] [address] Assigned Surgical Provider 08/27/22 documented as of this encounter
--- OUTSIDE RECORDS SUMMARY | 2023-05-11 20:21 | XMS_ITS | Encounter Summary ---
Author Name Unknown Organization [facility] Address [address] [place] [address] Care Team Providers Care Mill Oiler Name Role Phone Gigi Myers MD Primary Care Provider [phone] Mery Alicia RN Unavailable Unavaila ble Gigi Myers MD Unavailable [phone] Paz Pimentel PhD Unavailable [phone] Donal Bustillos MD Unavailable Lanny Schneider OD Unavailable Omer Escoto MD Unavailable Omer Escoto MD Unavailable [phone] Lanny Schneider OD Unavailable [phone] Omer Escoto MD Unavailable Reason for Visit * Reason Onset Date Comments Refill Request 01/26/2022 Encounter Details Date Type Department Care Team (Late st Contact Info) Description 01/26/[address] [facility] [address] [place] [address] Lucrecia Larry APRN [facility] [address] [place] [id number] Refill Request Social History Tobacco Use Types [...] How often do you attend chur or bahai services? Never 11/15/2021 Do you belong to any clubs o r organizations such as roman catholic groups, unions, fraternal or athletic groups, or [...] PHQ-2 Answer Date Recorded PHQ-2 Score 0 11/15/2021 [facility] of Occupat ional Health - Occupational [...] place to sleep or slept in a custodial (including now)? No 11/15/2021 Sex and Gender Information Value Date Recorded Sex Assigned at Not on file Gender Identity Not on file Sexual Orientation Not on file COVID-19 Exposure Response Date Recorded In the last 10 days, have yo u been in contact with someone who was confirmed or suspected to have Coronavirus/COVID-19? Unable to assess 01/18/2022 10:32 AM CDT documented as of this encounter Miscellaneous Notes * Telephone Encounter - Sam Peraza CMA - 01/26/2022 3:12 PM CDT Fax received from: [facility]/pharmacy #[id number] [place], [place] Refill authorization requested Drug: nortriptyline (PAMELOR) 50 MG capsule Qty: 60.0 Last filled 12/28/21 Last seen: 12/28/21 Next appointment None documented in this encounter Plan of Treatment Upcoming Encounters Date Type Department Care Team (Late st Contact Info) Description 05/24/2023 10:30 AM FIELD IRONWORKER Office Visit [address] [address] [place] [address] [place], [place] [id number] documented as of this encounter Visit Diagnoses Diagnosis 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) documented in this encounter Additional Health Concerns Infection Onset Date Last Indicated Resolved Time Rule Out COVID-19 01/01/2023 01/01/2023 01/02/2023 9:48 AM CDT Assessment Noted Time PHQ-9 Depression Total Score: 5 03/02/20 21 7:32 AM FIELD IRONWORKER documented as of this encounter Care Teams Mill Oiler Relationship Specialty Start Date End Date iGgi Myers MD [address] [place] [address] [place] [address] PCP - General Internal Medicine 05/05/15 Mery Alicia, LISA Personal Advocate & Liaison (PAL) 08/13/20 Gigi Myers MD [address] [place] [address] [place] [address] Assigned PCP 03/07/21 [place] [address] [place] [address] Assigned Behavioral Health Provider 09/05/21 Donal Bustillos MD [address] [place] [address] Dermatology 09/28/21 Lanny Schneider OD [address] [place] [address] [place] [address] Assigned Surgical Provider 12/18/21 03/04/22 Omer Escoto MD [address] [facility] [place] [address] MD Ophthalmology 12/20/21 Omer Escoto MD [address] [facility] [place] [address] Assigned Surgical Provider 03/05/22 08/19/22 Lanny Schneider OD [address] [facility] [place] [address] Assigned Surgical Provider 08/20/22 08/26/22 Omer Escoto MD [address] [facility] [place] [address] Assigned Surgical Provider 08/27/22 documented as of this encounter
--- OUTSIDE RECORDS SUMMARY | 2023-05-11 20:21 | XMS_ITS | Encounter Summary ---
Author Name Unknown Organization [place] [facility] Address [address] [place] [address] Care Team Providers Care Superintendent Police Name Role Phone Gigi Myers MD Primary Care Provider [phone] Mery Alicia RN Unavailable Unavaila [facility] Gigi Myers MD Unavailable [phone] Paz Pimentel PhD Unavailable [phone] Donal Bustillos MD Unavailable Omer Escoto MD Unavailable [phone] Omer Escoto MD Unavailable [phone] Reason for Visit * Reason Comments Medication Refill Encounter Details Date Type Department Care Team (Late st Contact Info) Description 06/17/2022 Refill [facility] Julien [address] [place] [address] Drive [address] [place] [address] [place] [address] [place] [address] [place] [address] Medication Refill Social History [...] How often do you attend chur or shinto services? Never 11/15/2021 Do you belong to any clubs o r organizations such as baptism groups, unions, fraternal or athletic groups, or [...] Answer Date Recorded PHQ-2 Score 0 06/20/2022 [facility]at [facility] - Occupational Stress Questionnaire Answer Date [...] a skilled nursing (including now)? No 11/15/2021 Sex and Gender Information Value Date Recorded Sex Assigned at Not on file Gender Identity Not on file Sexual Orientation Not on file COVID-19 Exposure Response Date Recorded In the last 10 days, have yo u been in contact with someone who was confirmed or suspected to have Coronavirus/COVID-19? No / Unsure 06/20/2022 2:07 PM AMBULATORY TECHNOLOGIST documented as of this encounter Miscellaneous Notes * Telephone Encounter - Malu Verma RN - 07/08/2022 10:44 AM CDT Resent nortriptyline, transmission failed Malu Verma RN, BSN [facility] * Addendum Note - Malu Verma RN - 06/17/2022 7:49 PM CSTAddended by: MALU VERMA on: 07/08/2022 10:45 AM Modules accepted: Orders documented in this encounter Plan of Treatment Upcoming Encounters Date Type Department Care Team (Late st Contact Info) Description 05/24/2023 10:30 AM AMBULATORY TECHNOLOGIST Office Visit [address] [address] [place] [address] [place] [address] documented as of this encounter Visit Diagnoses Diagnosis 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) documented in this encounter Additional Health Concerns Assessment Noted Time PHQ-9 Depression Total Score: 5 03/02/20 21 7:32 AM AMBULATORY TECHNOLOGIST documented as of this encounter Care Teams Superintendent Police Relationship Specialty Start Date End Date Gigi Myers MD [address] [place] [address] [place] [address] PCP - General Internal Medicine 05/05/15 Mery Alicia, LISA Personal Advocate & Liaison (PAL) 08/13/20 [place] [address] [place] [address] [place] [address] Assigned PCP 03/07/21 [place] [address] [place] [address] Assigned Behavioral Health Provider 09/05/21 Donal Bustillos MD [address] [place] [address] Dermatology 09/28/21 Omer Escoto MD [address] [facility] [place] [place] [address] Ophthalmology 12/20/21 Omer Escoto MD [address] [facility] [place] [address] Assigned Surgical Provider 03/05/22 08/19/22 documented as of this encounter
--- OUTSIDE RECORDS SUMMARY | 2023-05-11 20:21 | XMS_ITS | Encounter Summary ---
Author Name Unknown Organization [facility] Address [address] [place] [address]. [place] [address] Care Team Providers Care Employee Communications Coordinator Name Role Phone Gigi Myers MD Primary Care Provider [phone] Mery Alicia RN Unavailable Unavaila [facility] Gigi Myers MD Unavailable [phone] Paz Pimentel PhD Unavailable [phone] Donal Bustillos MD Unavailable [phone] Omer Escoto MD Unavailable [phone] Omer Escoto MD Unavailable [phone] Reason for Visit * Reason Comments Recheck Medication Encounter Details Date Type Department Care Team (Late st Contact Info) Description 11/30/2022 4:30 PM CDT Office Visit [facility] Julien [address] [place] [address] [place] [address] [place] [address] [place] [address] Generalized anxiety disorder; 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) Social History Tobacco Use Types Packs/Day [...] often do you attend chur ch or judaism services? Never 11/15/2021 Do you belong to [...] Answer Date Recorded PHQ-2 Score 0 11/30/2022 [facility] Questionnaire Answer Date [...] PM CDT documented as of this encounter Last Filed Vital Signs Vital Sign Reading Time Taken Comments Blood Pressure 116/64 11/30/2022 4:18 PM CDT Pulse 88 11/30/2022 4:18 PM CDT Temperature 36.7 ??C (98.1 ??F) 11/30/2022 4:18 PM CD T Respiratory Rate 18 11/30/2022 4:18 PM CDT Oxygen Saturation 97% 11/30/2022 4:18 PM CDT Inhaled Oxygen Concentration - - Weight 135.8 kg (299 lb 4.8 oz) 11/30/2022 4:18 PM CDT Height 167.6 cm (5' 6) 11/30/2022 4:18 PM CDT Body Mass Index 48.31 11/30/2022 4:18 PM CDT documented in this encounter Progress Notes * Gigi Myers MD - 11/30/2022 4:30 PM CDT Assessment & Plan ICD-10-CM 1. Generalized anxiety disorder F41.1 busPIRone (BUSPAR) 5 MG tablet ALPRAZolam (XANAX) 0.5 MG tablet 2. 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 Having frequent symptoms. Restart buspirone. Titrate dose from 5 mg BID to 10 mg BID. Contact me in 3-4 weeks with an update. The dose could stay at a lower dose or increase to 15 mg BID with the next prescription. Optimally alprazolam use would fall to 2-3 times per week once the buspirone is working well. RA. Continue w/ rheum management. Add cyclobenzaprine for intermittent muscle spasms. Gigi Myers MD [facility] J[place]IEN Jolley is a 47 year old, presenting for the following health issues: Recheck Medication 11/30/2022 4:11 PM Additional Questions Roomed by Klaudia 11/30/2022 4:11 PM Patient Reported Additional Medications Patient reports taking the following new medications none History of Present Illness Reason for visit: Med check She eats 2-3 servings of fruits and vegetables daily.She consumes 0 sweetened beverage(s) daily.Sheexercises with enough effort to increase her heart rate 30 to 60 minutes per day. She exercises with enough effort to increase her heart rate 4 days per week. She is taking medications regularly. Here to review her routine medications. Anxiety. Has been noting an increase in overall symptoms. Not taking a daily med for control. Has alprazolam, was taking at bedtime, started taking nearly every morning. This is working fairly well. We discussed other options to control anxiety rather than alprazolam. Reviewed past meds. She had tried buspirone in the past but took for only very short times. At the previous times she was having more depression sx as well. Does not recall any major side effects. Is willing to try again. RA. Managed by rheumatology. Has intermittent neck and upper back spasms. She has used muscle relaxants in the past w/ good success. Objective BP 116/64 (BP Location: Right arm, Patient Position: Sitting, Cuff Size: Adult Large) Pulse 88 Temp 98.1 ??F (36.7 ??C) (Tympanic) Resp 18 Ht 1.676 m (5' 6) Wt 135.8 kg (299 lb 4.8 oz) LMP (LMP Unknown) SpO2 97% BMI 48.31 kg/m?? Body mass index is 48.31 kg/m??. Physical Exam GEN: No distress PSYCH: Normal affect. Well groomed. Good eye contact. documented in this encounter Plan of Treatment Upcoming Encounters Date Type Department Care Team (Late st Contact Info) Description 05/24/2023 10:30 AM ODD TICKET CLERK Office Visit 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) documented in this encounter Additional Health Concerns Assessment Noted Time PHQ-9 Depression Total Score: 5 03/02/20 21 7:32 AM ODD TICKET CLERK documented as of this encounter Care Teams Employee Communications Coordinator Relationship Specialty Start Date End Date Gigi Myers MD [address] [facility] [place] [address] PCP - General Internal Medicine 05/05/15 Mery Alicia, LISA Personal Advocate & Liaison (PAL) 08/13/20 Gigi Myers MD [address] [facility] [place] [address] Assigned PCP 03/07/21 Paz [place] [address] [place] [address] Assigned Behavioral Health Provider 09/05/21 Donal Bustillos MD [address] [facility] [place] [id number] Dermatology 09/28/21 Omer Escoto MD [address] [facility] [place] [address] Ophthalmology 12/20/21 Omer Escoto MD [address] [facility] [place] [phone] Assigned Surgical Provider 08/27/22 documented as of this encounter
--- OUTSIDE RECORDS SUMMARY | 2023-05-11 20:21 | XMS_ITS | Encounter Summary ---
Author Name Unknown Organization [facility] Address [address] [place] [address]. [place] [address] Care Team Providers Care Bench Press Operator Name Role Phone Gigi Myers MD Primary Care Provider [phone] Mery Alicia RN Unavailable Unavaila [facility] Gigi Myers MD Unavailable [phone] Paz Pimentel PhD Unavailable [phone] Donal Bustillos MD Unavailable Omer Escoto MD Unavailable [phone] Omer Escoto MD Unavailable [phone] Reason for Visit * Reason Comments Recheck Medication Encounter Details Date Type Department Care Team (Late st Contact Info) Description 06/20/2022 2:30 PM AUDIOVISUAL LIBRARIAN Office Visit [facility] [address] [facility] [address] [place] [address] [place] [address] [place] [address] [place] [address] 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); Generalized anxiety disorder Social History Tobacco Use Types Packs/Day Years [...] often do you attend chur ch or christian services? Never 11/15/2021 Do you belong to any clubs o r organizations such as baptist groups, unions, fraternal or athletic groups, or [...] Answer Date Recorded PHQ-2 Score 0 06/20/2022 [facility] Answer Date [...] place to sleep or slept in a senior living (including now)? No 11/15/2021 Sex and Gender Information Value Date Recorded Sex Assigned at Not on file Gender Identity Not on file Sexual Orientation Not on file COVID-19 Exposure Response Date Recorded In the last 10 days, have yo u been in contact with someone who was confirmed or suspected to have Coronavirus/COVID-19? No / Unsure 06/20/2022 2:07 PM AUDIOVISUAL LIBRARIAN documented as of this encounter Last Filed Vital Signs Vital Sign Reading Time Taken Comments Blood Pressure 122/64 06/20/2022 2:26 PM AUDIOVISUAL LIBRARIAN Pulse 95 06/20/2022 2:26 PM AUDIOVISUAL LIBRARIAN Temperature 36.1 ??C (97 ??F) 06/20/2022 2:26 PM AUDIOVISUAL LIBRARIAN Respiratory Rate 14 06/20/2022 2:26 PM AUDIOVISUAL LIBRARIAN Oxygen Saturation 99% 06/20/2022 2:26 PM AUDIOVISUAL LIBRARIAN Inhaled Oxygen Concentration - - Weight 132 kg (291 lb) 06/20/2022 2:26 PM AUDIOVISUAL LIBRARIAN Height - - Body Mass Index 46.26 11/15/2021 9:34 AM CDT documented in this encounter Progress Notes * Gigi Myers MD - 06/20/2022 2:30 PM CST Assessment & Plan ICD-10-CM 1. 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) M05.711 nortriptyline (PAMELOR) 50 MG capsule M05.712 2. Generalized anxiety disorder F41.1 ALPRAZolam (XANAX) 0.25 MG tablet Refilled routine medications. Alprazolam - continue with intermittent use. If anxiety sx escalate can discuss options for controller medications in the future. Gigi Myers MD [facility] [place] is a 46 year old, presenting for the following health issues: Recheck Medication History of Present Illness Reason for visit: Med check She eats 2-3 servings of fruits and vegetables daily.She consumes 0 sweetened beverage(s) daily.Sheexercises with enough effort to increase her heart rate 30 to 60 minutes per day. She exercises with enough effort to increase her heart rate 3 or less days per week. She is taking medications regularly. Medication Followup of Xanax & nortriptyline ?? Taking Medication as prescribed: yes ?? Side Effects: None ?? Medication Helping Symptoms: yes Anxiety. Chronic issue. Mostly situational, mindy w/ flying. Has an upcoming trip to [place]. Takes alprazolam as needed. Last filled 30 tablets at the end of March. Has some remaining. Rheumatoid arthritis. Managed by rheumatology. Takes nortriptyline 100 mg at bedtime. Helping to keep pain controlled. No med side effects. Objective BP 122/64 (BP Location: Right arm, Patient Position: Sitting, Cuff Size: Adult Large) Pulse 95 Temp 97 ??F (36.1 ??C) (Temporal) Resp 14 Wt 132 kg (291 lb) SpO2 99% BMI 46.26 kg/m?? Body mass index is 46.26 kg/m??. Physical Exam GEN: No distress SKIN: No rashes LUNGS: CTA janice CV: RRR. No M. EXTR: No edema PSYCH: Normal affect. Well groomed. Good eye contact. OVISUAL LIBRARIAN documented in this encounter Plan of Treatment Upcoming Encounters Date Type Department Care Team (Late st Contact Info) Description 05/24/2023 10:30 AM AUDIOVISUAL LIBRARIAN Office Visit [address] [address] Coming Yenifer Ramachandran MD [address] [place] [address] documented as of this encounter Visit Diagnoses Diagnosis 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) Generalized anxiety disorder documented in this encounter Additional Health Concerns Assessment Noted Time PHQ-9 Depression Total Score: 5 03/02/20 21 7:32 AM AUDIOVISUAL LIBRARIAN documented as of this encounter Care Teams Bench Press Operator Relationship Specialty Start Date End Date Gigi Myers MD [address] [facility] [place] [address] PCP - General Internal Medicine 05/05/15 Mery Alicia, LISA Personal Advocate & Liaison (PAL) 08/13/20 Gigi Myers MD [address] [place] [address] [place] [address] Assigned PCP 03/07/21 [place] [address] [place] [address] Assigned Behavioral Health Provider 09/05/21 Donal Bustillos MD [address] [place] [address] Dermatology 09/28/21 Omer Escoto MD [address] [facility] [place] [address] Ophthalmology 12/20/21 Omer Escoto MD [address] [facility] [place] [address] Assigned Surgical Provider 03/05/22 08/19/22 documented as of this encounter
--- OUTSIDE RECORDS SUMMARY | 2023-05-11 20:21 | XMS_ITS | Encounter Summary ---
Author Name Unknown Organization [place] Address [address] [place] [address] Care Team Providers Care Tanning Consultant Name Role Phone Gigi Myers MD Primary Care Provider [phone] Mery Alicia RN Unavailable Unavaila ble Gigi Myers MD Unavailable [phone] Paz Pimentel PhD Unavailable [phone] Donal Bustillos MD Unavailable [phone] Lanny Schneider OD Unavailable Omer Escoto MD Unavailable Omer Escoto MD Unavailable Lanny Schneider OD Unavailable Omer Escoto MD Unavailable Reason for Visit * Reason Onset Date Comments Derm Problem 02/08/2022 Encounter Details Date Type Department Care Team (Late st Contact Info) Description 02/08/2022 MyC Medical Advice [facility] Julien [address] [place] [address] Gigi Myers MD [address] [facility] [place] [address] Derm Problem Social History Tobacco Use Types Packs/Day Years [...] How often do you attend chur or yazidism services? Never 11/15/2021 Do you belong to any clubs o r organizations such as anglican groups, unions, fraternal or athletic groups, or [...] Answer Date Recorded PHQ-2 Score 0 11/15/2021 [facility] - Occupational [...] encounter Miscellaneous Notes * Telephone Encounter - Sandrita Vo RN - 02/08/2022 1:36 PM CDT Patient sending more information for Evisit she requested. Tigre Vo RN documented in this encounter Plan of Treatment Upcoming Encounters Date Type Department Care Team (Late st Contact Info) Description 05/24/2023 10:30 AM TYPE BAR AND SEGMENT ASSEMBLER Office Visit [address] [address] Coming Yenifer MD Joy [address] [place] [address] documented as of this encounter Visit Diagnoses Not on filedocumented in this encounter Additional Health Concerns Infection Onset Date Last Indicated Resolved Time Rule Out COVID-19 01/01/2023 01/01/2023 01/02/2023 9:48 AM CDT Assessment Noted Time PHQ-9 Depression Total Score: 5 03/02/20 21 7:32 AM TYPE BAR AND SEGMENT ASSEMBLER documented as of this encounter Care Teams Tanning Consultant Relationship Specialty Start Date End Date Gigi Myers MD [address] [place] [address] [place] [address] PCP - General Internal Medicine 05/05/15 Mery Alicia, LISA Personal Advocate & Liaison (PAL) 08/13/20 Gigi Myers MD [address] [place] [address] [place] [address] Assigned PCP 03/07/21 [place] [address] [place] [address] Assigned Behavioral Health Provider 09/05/21 Donal Bustillos MD [address] [place] [address] Dermatology 09/28/21 Lanny Schneider OD [address] [place] [address] [place] [address] Assigned Surgical Provider 12/18/21 03/04/22 Omer Escoto MD [address] [place] [address] Ophthalmology 12/20/21 Omer Escoto MD [address] [facility] [place] [address] Assigned Surgical Provider 03/05/22 08/19/22 Lanny Schneider OD [address] [facility] [place] [address] Assigned Surgical Provider 08/20/22 08/26/22 Omer Escoto MD [address] [facility] [place] [address] Assigned Surgical Provider 08/27/22 documented as of this encounter
--- OUTSIDE RECORDS SUMMARY | 2023-05-11 20:21 | XMS_ITS | Encounter Summary ---
Author Name Unknown Organization [place] Address [address] [place] [address] Care Team Providers Care Cut In Worker Name Role Phone Gigi Myers MD Primary Care Provider [phone] Mery Alicia RN Unavailable Unavaila ble Gigi Myers MD Unavailable [phone] Paz Pimentel PhD Unavailable [phone] Donal Bustillos MD Unavailable [phone] Omer Escoto MD Unavailable [phone] Omer Escoto MD Unavailable [phone] Encounter Details Date Type Department Care Team (Latest Contact Info) Description 11/23/2022 Travel Social History Tobacco Use Types Packs/Day [...] week 11/15/2021 How often do you attend [facility] or adventism services? Never 11/15/2021 Do you belong to any clubs o r organizations such as shinto groups, unions, fraternal or athletic groups, or [...] Answer Date Recorded PHQ-2 Score 0 06/20/2022 [facility] - Occupational Stress Questionnaire Answer Date [...] suspected to have Coronavirus/COVID-19? No / Unsure 11/23/2022 11:18 AM CDT documented as of this encounter Plan of Treatment Upcoming Encounters Date Type Department Care Team (Late st Contact Info) Description 05/24/2023 10:30 AM CORE WORKER Office Visit [address] [address] [place] [address] [place] [address] documented as of this encounter Visit Diagnoses Not on filedocumented in this encounter Additional Health Concerns Assessment Noted Time PHQ-9 Depression Total Score: 5 03/02/20 21 7:32 AM CORE WORKER documented as of this encounter Care Teams Cut In Worker Relationship Specialty Start Date End Date Gigi Myers MD [address] [place] [address] [place] [address] PCP - General Internal Medicine 05/05/15 Mery Alicia, LISA Personal Advocate & Liaison (PAL) 08/13/20 Gigi Myers MD [address] [facility] [place] [address] Assigned PCP 03/07/21 [place] [address] [place] [address] Assigned Behavioral Health Provider 09/05/21 Donal Bustillos MD [address] [place] [address] Dermatology 09/28/21 Omer Escoto MD [address] [facility] [place] [address] Ophthalmology 12/20/21 Omer Escoto MD [address] [facility] [place] [address] Assigned Surgical Provider 08/27/22 documented as of this encounter
--- OUTSIDE RECORDS SUMMARY | 2023-05-11 20:21 | XMS_ITS | Encounter Summary ---
Author Name Unknown Organization [place] Address [facility] [place] [address] Care Team Providers Care Sock Drier Name Role Phone Gigi Myers MD Primary Care Provider [phone] Mery Alicia RN Unavailable Unavaila ble Gigi Myers MD Unavailable [phone] Paz Pimentel PhD Unavailable [phone] Donal Bustillos MD Unavailable Omer Escoto MD Unavailable Omer Escoto MD Unavailable [phone] Lanny Schneider OD Unavailable Omer Escoto MD Unavailable [phone] Reason for Visit * Reason Onset Date Comments Call Back 03/14/2022 Encounter Details Date Type Department Care Team (Late st Contact Info) Description 03/14/2022 Telephone [facility] [address] [place] [address] [facility] Social History Tobacco Use Types Packs/Day Years [...] often do you attend chur ch or zoroastrianism services? Never 11/15/2021 Do you belong to any clubs o r organizations such as restorationist groups, unions, fraternal or athletic groups, or [...] Answer Date Recorded PHQ-2 Score 0 11/15/2021 [facility] - Occupational Stress [...] suspected to have Coronavirus/COVID-19? No / Unsure 02/25/2022 8:05 AM CDT documented as of this encounter Miscellaneous Notes * Telephone Encounter - Krista Soares - 03/14/2022 12:15 PM CST LVM for patient to schedule 60 minute in clinic transfer of care appointment with Astrid Phipps.When patient returns the call please transfer patient to [phone] to schedule L CABINET FINISHER documented in this encounter Plan of Treatment Upcoming Encounters Date Type Department Care Team (Late st Contact Info) Description 05/24/2023 10:30 AM METAL CABINET FINISHER Office Visit [facility] [address] [place] [address] [place] [id number] [place] [phone] documented as of this encounter Visit Diagnoses Not on filedocumented in this encounter Additional Health Concerns Infection Onset Date Last Indicated Resolved Time Rule Out COVID-19 01/01/2023 01/01/2023 01/02/2023 9:48 AM CDT Assessment Noted Time PHQ-9 Depression Total Score: 5 03/02/20 21 7:32 AM METAL CABINET FINISHER documented as of this encounter Care Teams Sock Drier Relationship Specialty Start Date End Date Gigi Myers MD [address] [facility] [place] [address] PCP - General Internal Medicine 05/05/15 Mery Alicia, LISA Personal Advocate & Liaison (PAL) 08/13/20 Gigi Myers MD [address] [place] [address] [place] [address] Assigned PCP 03/07/21 [place] [address] [place] [address] Assigned Behavioral Health Provider 09/05/21 Donal Bustillos MD [address] [place] [address] Dermatology 09/28/21 Omer Escoto MD [address] [facility] [place] [address] Ophthalmology 12/20/21 Omer Escoto MD [address] [facility] [place] [address] Assigned Surgical Provider 03/05/22 08/19/22 Lanyn Schneider OD [address] [place] [address] [place] [address] Assigned Surgical Provider 08/20/22 08/26/22 Omer Escoto MD [address] [facility] [place] [address] Assigned Surgical Provider 08/27/22 documented as of this encounter
--- OUTSIDE RECORDS SUMMARY | 2023-05-11 20:21 | XMS_ITS | Encounter Summary ---
Author Name Unknown Organization [place] Address [facility] [place] [address] Care Team Providers Care Rn Transition Name Role Phone Gigi Myers MD Primary Care Provider [phone] Mery Alicia RN Unavailable Unavaila ble Gigi Myers MD Unavailable [phone] Paz Pimentel PhD Unavailable [phone] Donal Bustillos MD Unavailable Omer Escoto MD Unavailable [phone] Omer Esctoo MD Unavailable Reason for Visit * Auth/Cert (Routine) Specialty Diagnoses / Procedures Referred By Contac t Referred To Contact Gastroenterology Diagnoses Special screening for malignant neoplasms, colon Special screening for malignant neoplasms, colon [Z12.11] Procedures [place] COLONOSCOPY W/WO BRUSH/WASH Colonoscopy [facility] [address] [id number] Referral ID Status Reason Start Date Expiration Date Visits Re quested Visits Authorized [id number] 1 1 Encounter Details Date Type Department Care Team (Late st Contact Info) Description 08/19/2022 10:15 AM CDT - 08/19/2022 11:00 AM CDT Surgery [facility] Endoscopy [address] [id number] Sun Carlin MD COLON RECTAL SURGERY [address] [place] [address] Colonoscopy Surgery Details Date/Time Status Location OR Service Patient Class Case Class Case Type Trauma Case? 08/19/22 10:15 AM Posted GI GI 03 [facility]-Rect[facility] Outpatient Panel 1 Procedure [facility] Anes Op Region Wound Class Comments Colonoscopy N/A Moderate Sedation Rectum II-Clean C ontaminated Surgeon Surgeon Role Service Panel Sun Carlin MD Primary [facility]-Rectal 1 documented in this encounter Social History Tobacco Use Types Packs/Day Years [...] How often do you attend chur or holiness services? Never 11/15/2021 Do you belong to any clubs o r organizations such as yazidism groups, unions, fraternal or athletic groups, or [...] Answer Date Recorded PHQ-2 Score 0 06/20/2022 [facility] - Occupational Stress Questionnaire Answer [...] in a residential (including now)? No 11/15/2021 Sex and Gender [...] Sign Reading Time Taken Comments Blood Pressure 152/109 08/19/2022 10:30 AM CDT Pulse 86 08/19/2022 10:35 AM CDT Temperature - - Respiratory Rate 25 08/19/2022 10:35 AM CDT Oxygen Saturation 99% 08/19/2022 10:34 AM CDT Inhaled Oxygen Concentration - - Weight 129.3 kg (285 lb) 08/19/2022 9:52 AM CDT Height 167.6 cm (5' 6) 08/19/2022 9:52 AM CDT Body Mass Index 46 08/19/2022 9:52 AM CDT documented in this encounter Medications at Time of Discharge Medication Sig Dispensed Refills Start Date End Date Biotin 10 MG CAPS 0 calcium carbonate (OS-UMA) 500 MG tablet Take 1 tablet by mouth 2 times daily 0 cholecalciferol (VITAMIN D3) 1000 units (25 mcg) capsule Take 1 capsule by mouth daily 0 co-enzyme Q-10 100 MG CAPS capsule Take by mouth daily 0 famotidine (PEPCID) 20 MG tablet Take 20 [...] VITAMIN PO) Take by mouth daily 0 nortriptyline (PAMELOR) 50 MG capsuleIndications:R heumatoid arthritis involving both shoulders with positive rheumatoid factor (H) Take 2 capsules (100 mg) by mouth At Bedtime 180 capsule 4 06/20/2022 psyllium 30.9 % POWD Take by mouth daily 0 ALPRAZolam (XANAX) 0.25 MG tabletIndications:Ge neralized anxiety disorder Take 1 tablet (0.25 mg) by mouth 2 times daily as needed for anxiety 30 tablet 2 06/20/2022 11/21/2022 documented as of this encounter H&P Notes * Sun Carlin MD - 08/19/2022 10:13 AM CDT Pre-Endoscopy History and Physical Samreen Early Date of : 1975 Age: [age] year old Date of Procedure: 08/19/22 Primary care provider: Gigi Myers Type of Endoscopy: Colonoscopy Reason for Procedure: screening Type of Anesthesia Anticipated: Moderate Sedation HPI: Samreen is a 46 year old female who will be undergoing the above procedure. A history and physical has been performed. The patient's medications and allergies have been reviewed. The risks and benefits of the procedure and the sedation options and risks were discussed with the patient. All questions were answered and informed consent was obtained. She denies a personal or family history of anesthesia complications or bleeding disorders. Allergies Allergen Reactions ??? No Known Drug Allergy Allergy to Latex: NO Allergy to tape: NO Intolerances: n/a No current facility-administered medications on file prior to encounter. ALPRAZolam (XANAX) 0.25 MG tablet, Take 1 tablet (0.25 mg) by mouth 2 times daily as needed for anxiety Biotin 10 MG CAPS, calcium carbonate (OS-UMA) 500 MG tablet, Take 1 tablet by mouth 2 times daily cholecalciferol (VITAMIN D3) 1000 units (25 mcg) capsule, Take 1 capsule by mouth daily co-enzyme Q-10 100 MG CAPS capsule, Take by mouth daily famotidine (PEPCID) 20 MG tablet, Take 20 mg by mouth folic acid (FOLVITE) 1 MG tablet, Take 1 tablet (1 mg) by mouth daily glutamine 500 MG capsule, Take 500 mg by mouth once KEVZARA 200 MG/1.14ML SOAJ, medical cannabis (Patient's own supply), See Admin Instructions (The purpose of this order is to document that the patient reports taking medical cannabis. This is not a prescription, and is not usedto certify that the patient has a qualifying medical condition.) Multiple Vitamin (DAILY VITAMIN PO), Take by mouth daily psyllium 30.9 % POWD, Take by mouth daily hydroxychloroquine (PLAQUENIL) 200 MG tablet, Take 200 mg by mouth 2 times daily nortriptyline (PAMELOR) 50 MG capsule, Take 2 capsules (100 mg) by mouth At Bedtime Patient Active Problem List Diagnosis ??? Irritable bowel syndrome ??? Generalized anxiety disorder ??? Obesity (H) ??? 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 High risk medication use Past Medical History: Diagnosis Date ??? Anxiety disorder ??? Gastro-oesophageal reflux disease ??? Kidney stone 05/03/2021 ??? Obesity ??? Uncomplicated asthma Past Surgical History: Procedure Laterality Date ??? HYSTEROSCOPY DIAGNOSTIC N/A 02/13/2019 Procedure: DIAGNOSTIC HYSTEROSCOPY; Surgeon: Zara Ocampo MD; Location: [facility] OR ??? INSERT INTRAUTERINE DEVICE N/A 06/24/2014 Procedure: INSERT INTRAUTERINE DEVICE; Surgeon: Zara Ocampo MD; Location: [facility] ??? INSERT INTRAUTERINE DEVICE N/A 02/13/2019 Procedure: INSERTION, INTRAUTERINE DEVICE (MIRENA); Surgeon: Zara Ocampo MD; Location: [facility] OR ??? OPERATIVE HYSTEROSCOPY WITH MORCELLATOR N/A 06/24/2014 Procedure: OPERATIVE HYSTEROSCOPY WITH MORCELLATOR ([employer]); Surgeon: Zara Ocampo MD;Location: [facility] ??? REMOVE INTRAUTERINE DEVICE N/A 02/13/2019 Procedure: REMOVAL, INTRAUTERINE DEVICE (MIRENA); Surgeon: Zara Ocampo MD; Location: [facility] OR ??? ZZC APPENDECTOMY 02/22/2003 ??? ZZC ORAL SURGERY PROCEDURE Social History Tobacco Use ??? Smoking status: Some Days Packs/day: 0.50 Years: 10.00 Pack years: 5.00 Types: Cigarettes Last attempt to quit: 02/02/1999 Years since quittin.5 ??? Smokeless tobacco: Never Vaping Use ??? Vaping status: Never Used Substance Use Topics ??? Alcohol use: Yes Alcohol/week: 0.0 standard drinks of alcohol Comment: 5/month Family History Problem Relation Age of Onset ??? Depression Mother ??? Macular Degeneration Mother ??? Alzheimer Disease Maternal Grandmother ??? Macular Degeneration Maternal Grandmother ??? Cancer - colorectal Paternal Grandmother ??? Psychotic Disorder Sister bipolar? schizoaffective? -- has been hospitalized multiple times ??? Cancer - colorectal Paternal Aunt ??? Diabetes No family hx of ??? C.A.D. No family hx of ??? Breast Cancer No family hx of ??? Alcohol/Drug No family hx of ??? Glaucoma No family hx of REVIEW OF SYSTEMS: 5 point ROS negative except as noted above in HPI, including Gen., Resp., CV, GI & system review. PHYSICAL EXAM: BP (!) 158/87 Pulse 81 Resp 20 Ht 1.676 m (5' 6) Wt 129.3 kg (285 lb) SpO2 97% BMI 46.00 kg/m?? Estimated body mass index is 46 kg/m?? as calculated from the following: Height as of this encounter: 1.676 m (5' 6). Weight as of this encounter: 129.3 kg (285 lb). All Vitals have been reviewed. GENERAL APPEARANCE: healthy and alert MENTAL STATUS: alert HEENT: NC/AT, normal neck mobility RESP: lungs clear to auscultation - no rales, rhonchi or wheezes CV: regular rates and rhythm IMPRESSION ASA Class 2 - Mild systemic disease PLAN: Plan for colonoscopy. We discussed the risks, benefits and alternatives and the patient wished to proceed. The above has been forwarded to the consulting provider. Sun Carlin MD [facility] August 19, 2022 documented in this encounter Plan of Treatment Upcoming Encounters Date Type Department Care Team (Late st Contact Info) Description 05/24/2023 10:30 AM MARINE SCIENTIST Office Visit [address] [phone] [place]enez [place] [id number] [place] [phone] documented as of this encounter Procedures Procedure Name Priority Date/Time Associated Diagnosis Comments COLONOSCOPY 08/19/2022 10:14 AM CDT Special screening for malignant neoplasms, colon COLONOSCOPY Routine 08/19/2022 9:48 AM CDT documented in this encounter Results * COLONOSCOPY (08/19/2022 9:48 AM CDT) [place] [id number] [address] ??[id number] Patient Name: Samreen Early ? Procedure Date: 08/19/2022 9:48 AM ? Date of : 1975 ?Admit Type: Outpatient Age: 46 ? Room: [place] [address] Note Status: Finalized ?Attending MD: Sun Carlin MD, Instrument Name: [id number] Adult Colon Procedure: ?Colonoscopy Indications: ?Screening for colorectal malignant neoplasm Providers: ?Sun Carlin MD, Lorenza Duncan RN Referring MD: ? Medicines: ?Midazolam 4 mg IV, Fentanyl 100 micrograms IV, ?Ondansetron 4 mg IV Complications: ?No immediate complications. Procedure: ?Pre-Anesthesia Assessment: ?- Prior to the procedure, a History and Physical ?was performed, and patient medications and ?allergies were reviewed. The patient is competent. ?The risks and benefits of the procedure and the ?sedation options and risks were discussed with the ?patient. All questions were answered and informed ?consent was obtained. Patient identification and ?proposed procedure were verified by the physician ?and the nurse in the procedure room. Mental Status ?Examination: alert and oriented. Airway ?Examination: normal oropharyngeal airway and neck ?mobility. Respiratory Examination: clear to ?auscultation. CV Examination: normal. Prophylactic ?Antibiotics: The patient does not require ?prophylactic antibiotics. Prior Anticoagulants: The ?patient has taken no anticoagulant or antiplatelet ?agents. ASA Grade Assessment: II - A patient with ?mild systemic disease. After reviewing the risks ?and benefits, the patient was deemed in ?satisfactory condition to undergo the procedure. ?The anesthesia plan was to use moderate sedation / ?analgesia (conscious sedation). Immediately prior ?to administration of medications, the patient was ?re-assessed for adequacy to receive sedatives. The ?heart rate, respiratory rate, oxygen saturations, ?blood pressure, adequacy of pulmonary ventilation, ?and response to care were monitored throughout the ?procedure. The physical status of the patient was ?re-assessed after the procedure. ?After obtaining informed consent, the colonoscope ?was passed under direct vision. Throughout the ?procedure, the patient's blood pressure, pulse, and ?oxygen saturations were monitored continuously. The ?colonoscope 524 was introduced through the anus and ?advanced to the cecum, identified by appendiceal ?orifice and ileocecal valve. The colonoscopy was ?performed without difficulty. The patient tolerated ?the procedure well. The quality of the bowel ?preparation was good. ? Findings: ? The perianal and digital rectal examinations were normal. ? The entire examined colon appeared normal on direct and retroflexion ? views. ? Impression: ? - The entire examined colon is normal on direct and ?retroflexion views. ?- No specimens collected. Recommendation: ? - Discharge patient to home. ?- Patient has a contact number available for ?emergencies. The signs and symptoms of potential ?delayed complications were discussed with the ?patient. Return to normal activities tomorrow. ?Written discharge instructions were provided to the ?patient. ?- Repeat colonoscopy in 10 years for screening ?purposes. ? Procedure Code(s): ? --- Professional --- ? G0121, Colorectal cancer screening; colonoscopy on individual not ? meeting criteria for high risk Diagnosis Code(s): ? --- Professional --- ? Z12.11, Encounter for screening for malignant neoplasm of colon CPT copyright 2020 [employer]. All rights reserved. The codes documented in this report are preliminary and upon customer support executive review may be revised to meet current compliance requirements. Electronic Signature by Dr Sun Carlin Sun Carlin MD 08/19/2022 10:36:11 AM I was physically present for the entire viewing portion of the exam. Sun Carlin MD Number of Addenda: 0 Note Initiated On: 08/19/2022 9:48 AM Scope Withdrawal Time: 0 hours 8 minutes 32 seconds Total Procedure Duration: 0 hours 13 minutes 9 seconds Scope In: 10:20:31 AM Scope Out: 10:33:40 AM RADIOLOGY RESULTS 08/19/2022 9:48 AM CDT Sun Carlin MD PROCEDURES RADIOLOGY RESULTS documented in this encounter Visit Diagnoses Diagnosis Special screening for malignant neoplasms, colon documented in this encounter Administered Medications Inactive Administered Medications - up to 3 most recent administrations Medication Order MAR Action Action Date Dose Rate Site fentaNYL (PF) (SUBLIMAZE) injection Intravenous, PRN, Administer over 3-5 Minutes, Starting on Mon08/19/22 at 1020, Intra-procedure $Given 08/19/2022 10:20 AM CDT 100 mcg lidocaine (LMX4) cream Topical, EVERY 1 HOUR PRN, pain, with VAD insertion, Starting on Mon08/19/22 at 0953, Apply at least 30 minutes prior to VAD insertion in divided doses as needed for size of site for insertion. MAX Dose: 2.5 g (?? of 5 g tube) Do NOT give if patient has a history of allergy to any local anesthetic or any julissa product. Do NOT use both lidocaine intradermal/subcutaneous injection and the lidocaine cream on the same site., Pre-procedure lidocaine 1 % 0.1-1 mL 0.1-1 mL, Other, EVERY 1 HOUR PRN, mild pain with VAD insertion, Starting on Mon08/19/22 at 0953, MAX dose 1 mL subcutaneous OR intradermal along the side of the vein in divided doses as needed for VAD insertion. Do NOT give if patient has a history of allergy to any local anesthetic or any julissa product. Do NOT use both lidocaine intradermal/subcutaneous injection and the lidocaine cream on the same site., Pre-procedure midazolam (VERSED) injection Intravenous, Administer over 2 Minutes, PRN, Starting on Mon08/19/22 at 1020, Intra-procedure $Given 08/19/2022 10:24 AM CDT 1 mg $Given 08/19/2022 10:22 AM CDT 1 mg $Given 08/19/2022 10:20 AM CDT 2 mg ondansetron (ZOFRAN ODT) ODT tab 4 mg 4 mg, Oral, EVERY 6 HOURS PRN, nausea, vomiting, Starting on Mon08/19/22 at 1111, This is Step 1 of nausea and vomiting management. If nausea not resolved in 15 minutes, go to Step 2 prochlorperazine (COMPAZINE). Do not push through foil backing. Peel back foil and gently remove. Place on tongue immediately. Administration with liquid unnecessary With dry hands, peel back foil backing and gently remove tablet. Do not push oral disintegrating tablet through foil backing. Administer immediately on tongue and oral disintegrating tablet dissolves in seconds, then swallow with saliva. Liquid not required. ondansetron (ZOFRAN) injection 4 mg 4 mg, Intravenous, ONCE PRN, nausea, vomiting, Administer over 2-5 Minutes, Starting on Mon08/19/22 at 0953, For 1 dose, Give in ENDO pre procedure prep area. Irritant., Pre-procedure ondansetron (ZOFRAN) injection 4 mg 4 mg, Intravenous, EVERY 6 HOURS PRN, nausea, vomiting, Administer over 2-5 Minutes, Starting on Mon08/19/22 at 1111, This is Step 1 of nausea and vomiting management. If nausea not resolved in 15 minutes, go to Step 2 prochlorperazine (COMPAZINE). Irritant. ondansetron (ZOFRAN) injection Intravenous, PRN, Administer over 2-5 Minutes, Starting on Mon08/19/22 at 1020, Intra-procedure $Given 08/19/2022 10:20 AM CDT 4 mg prochlorperazine (COMPAZINE) injection 10 mg 10 mg, Intravenous, EVERY 6 HOURS PRN, nausea, vomiting, Administer over 1-2 Minutes, Starting on Mon08/19/22 at 1111, This is Step 2 of nausea and vomiting management. If nausea not resolved in 15-30 minutes, Notify provider. prochlorperazine (COMPAZINE) tablet 10 mg 10 mg, Oral, EVERY 6 HOURS PRN, nausea, vomiting, Starting on Mon08/19/22 at 1111, This is Step 2 of nausea and vomiting management. If nausea not resolved in 15-30 minutes, Notify provider. sodium chloride (PF) 0.9% PF flush 3 mL 3 mL, Intracatheter, EVERY 8 HOURS, First dose on Mon08/19/22 at 1000, to lock peripheral IV dormant line, Pre-procedure sodium chloride (PF) 0.9% PF flush 3 mL 3 mL, Intracatheter, EVERY 1 MIN PRN, line flush, other, to ensure patency or to lock dormant line, Starting on Mon08/19/22 at 0953, Pre-procedure documented in this encounter Active and Recently Administered Medications Times are shown in CDT. Scheduled Medication Order 08/17/2022 08/18/2022 08/19/2022 sodium chloride (PF) 0.9% PF flush 3 mL 3 mL, Intracatheter, EVERY 8 HOURS, First dose on Mon08/19/22 at 1000, to lock peripheral IV dormant line, Pre-procedure 1000 (Canceled Entry - Provider: Orders Generic Provider - Comment: Automatically canceled at discontinue of medication order) PRN Medication Order 08/17/2022 08/18/2022 08/19/2022 fentaNYL (PF) (SUBLIMAZE) injection Intravenous, PRN, Administer over 3-5 Minutes, Starting on Mon08/19/22 at 1020, Intra-procedure 1020 ($Given - Provi mariah: Lorenza Duncan RN) flumazenil (ROMAZICON) injection 0.2 mg 0.2 mg, Intravenous, EVERY 1 MIN PRN, benzodiazepine reversal, over sedation, Administer over 1 Minutes, Starting on Mon08/19/22 at 1111, For 12 hours, Give over 15 seconds. If inadequate response after 45 seconds, may repeat up to a MAX total dose of 1 mg. Continue monitoring until discharge criteria are met for a minimum of 2 hours Irritant. Use with caution in patients on benzodiazepine therapy. lidocaine (LMX4) cream Topical, EVERY 1 HOUR PRN, pain, with VAD insertion, Starting on Mon08/19/22 at 0953, Apply at least 30 minutes prior to VAD insertion in divided doses as needed for size of site for insertion. MAX Dose: 2.5 g (?? of 5 g tube) Do NOT give if patient has a history of allergy to any local anesthetic or any julissa product. Do NOT use both lidocaine intradermal/subcutaneous injection and the lidocaine cream on the same site., Pre-procedure lidocaine 1 % 0.1-1 mL 0.1-1 mL, Other, EVERY 1 HOUR PRN, mild pain with VAD insertion, Starting on Mon08/19/22 at 0953, MAX dose 1 mL subcutaneous OR intradermal along the side of the vein in divided doses as needed for VAD insertion. Do NOT give if patient has a history of allergy to any local anesthetic or any julissa product. Do NOT use both lidocaine intradermal/subcutaneous injection and the lidocaine cream on the same site., Pre-procedure midazolam (VERSED) injection Intravenous, Administer over 2 Minutes, PRN, Starting on Mon08/19/22 at 1020, Intra-procedure 1020 ($Given - Provi mariah: Lorenza Duncan RN)1022 ($Given - Provider: Lorenza Duncan RN)1024 ($Given - Provider: Lorenza Duncan RN) naloxone (NARCAN) injection 0.2 mg 0.2 mg, Intravenous, EVERY 2 MIN PRN, opioid reversal, Starting on Mon08/19/22 at 1111, Administer intravenous route when available and notify provider when administered. For unintended sedation or respiratory depression if all of the below criteria are met: ~ respiratory rate LESS than or EQUAL to 8. ~SaO2 less than 92% and or/end-tidal CO2 is greater than 50. ~ the patient is receiving an opioid, has unintended sedations assessed as RASS (-3), and is currently not on mechanical ventilation. RASS scale moderate (-3) is movement or eye opening to voice but no eye contact. Patient Monitoring Once the patient has demonstrated a response to the naloxone, continue to monitor respiratory rate, depth, oxygen saturation and end-tidal CO2 (if available) every 15 minutes x 2, then every 30 minutes x 2, then every 1 hour x 1 after each naloxone dose. Consider transfer to ICU if patient respiratory parameters have not improved after 4 naloxone doses. naloxone (NARCAN) injection 0.2 mg 0.2 mg, Intramuscular, EVERY 2 MIN PRN, opioid reversal, Starting on Mon08/19/22 at 1111, Administer intramuscular if an intravenous route is not available and notify provider when administered. For unintended sedation or respiratory depression if all of the below criteria are met: ~ respiratory rate LESS than or EQUAL to 8. ~SaO2 less than 92% and or/end-tidal CO2 is greater than 50. ~ the patient is receiving an opioid, has unintended sedations assessed as RASS (-3), and is currently not on mechanical ventilation. RASS scale moderate (-3) is movement or eye opening to voice but no eye contact. Patient Monitoring Once the patient has demonstrated a response to the naloxone, continue to monitor respiratory rate, depth, oxygen saturation and end-tidal CO2 (if available) every 15 minutes x 2, then every 30 minutes x 2, then every 1 hour x 1 after each naloxone dose. Consider transfer to ICU if patient respiratory parameters have not improved after 4 naloxone doses. naloxone (NARCAN) injection 0.4 mg 0.4 mg, Intravenous, EVERY 2 MIN PRN, opioid reversal, Starting on Mon08/19/22 at 1111, Administer intravenous route when available and notify provider when administered. For unintended sedation or respiratory depression if all of the below criteria are met: ~ respiratory rate LESS than or EQUAL to 8. ~ SaO2 less than 92% and or/end-tidal CO2 is greater than 50. ~ the patient is receiving an opioid, has unintended sedation assessed as RASS (-4) or (-5) and patient is currently not on mechanical ventilation. RASS scale (-4) is deep sedation with no response to voice but movement or eye opening to physical stimulation. RASS scale (-5) is unarousable. Patient Monitoring Once the patient has demonstrated a response to the naloxone, continue to monitor respiratory rate, depth, oxygen saturation and end-tidal CO2 (if available) every 15 minutes x 2, then every 30 minutes x 2, then every 1 hour x 1 after each naloxone dose. Consider transfer to ICU if patient respiratory parameters have not improved after 4 naloxone doses. naloxone (NARCAN) injection 0.4 mg 0.4 mg, Intramuscular, EVERY 2 MIN PRN, opioid reversal, Starting on Mon08/19/22 at 1111, Administer intramuscular if an intravenous route is not available and notify provider when administered. For unintended sedation or respiratory depression if all of the below criteria are met: ~ respiratory rate LESS than or EQUAL to 8. ~ SaO2 less than 92% and or/end-tidal CO2 is greater than 50. ~ the patient is receiving an opioid, has unintended sedation assessed as RASS (-4) or (-5) and patient is currently not on mechanical ventilation. RASS scale (-4) is deep sedation with no response to voice but movement or eye opening to physical stimulation. RASS scale (-5) is unarousable. Patient Monitoring Once the patient has demonstrated a response to the naloxone, continue to monitor respiratory rate, depth, oxygen saturation and end-tidal CO2 (if available) every 15 minutes x 2, then every 30 minutes x 2, then every 1 hour x 1 after each naloxone dose. Consider transfer to ICU if patient respiratory parameters have not improved after 4 naloxone doses. ondansetron (ZOFRAN ODT) ODT tab 4 mg(Linked Group 1) 4 mg, Oral, EVERY 6 HOURS PRN, nausea, vomiting, Starting on Mon08/19/22 at 1111, This is Step 1 of nausea and vomiting management. If nausea not resolved in 15 minutes, go to Step 2 prochlorperazine (COMPAZINE). Do not push through foil backing. Peel back foil and gently remove. Place on tongue immediately. Administration with liquid unnecessary With dry hands, peel back foil backing and gently remove tablet. Do not push oral disintegrating tablet through foil backing. Administer immediately on tongue and oral disintegrating tablet dissolves in seconds, then swallow with saliva. Liquid not required. ondansetron (ZOFRAN) injection 4 mg 4 mg, Intravenous, ONCE PRN, nausea, vomiting, Administer over 2-5 Minutes, Starting on Mon08/19/22 at 0953, For 1 dose, Give in ENDO pre procedure prep area. Irritant., Pre-procedure ondansetron (ZOFRAN) injection 4 mg(Linked Group 1) 4 mg, Intravenous, EVERY 6 HOURS PRN, nausea, vomiting, Administer over 2-5 Minutes, Starting on Mon08/19/22 at 1111, This is Step 1 of nausea and vomiting management. If nausea not resolved in 15 minutes, go to Step 2 prochlorperazine (COMPAZINE). Irritant. ondansetron (ZOFRAN) injection Intravenous, PRN, Administer over 2-5 Minutes, Starting on Mon08/19/22 at 1020, Intra-procedure 1020 ($Given - Provi mariah: Lorenza Duncan RN) prochlorperazine (COMPAZINE) injection 10 mg(Linked Group 2) 10 mg, Intravenous, EVERY 6 HOURS PRN, nausea, vomiting, Administer over 1-2 Minutes, Starting on Mon08/19/22 at 1111, This is Step 2 of nausea and vomiting management. If nausea not resolved in 15-30 minutes, Notify provider. prochlorperazine (COMPAZINE) tablet 10 mg(Linked Group 2) 10 mg, Oral, EVERY 6 HOURS PRN, nausea, vomiting, Starting on Mon08/19/22 at 1111, This is Step 2 of nausea and vomiting management. If nausea not resolved in 15-30 minutes, Notify provider. sodium chloride (PF) 0.9% PF flush 3 mL 3 mL, Intracatheter, EVERY 1 MIN PRN, line flush, other, to ensure patency or to lock dormant line, Starting on Mon08/19/22 at 0953, Pre-procedure Linked Groups Order Group 1: ondansetron (ZOFRAN ODT) ODT tab 4 mgJump to med 4 mg, Oral, EVERY 6 HOURS PRN, nausea, vomiting, Starting on Mon08/19/22 at 1111, This is Step 1 of nausea and vomiting management. If nausea not resolved in 15 minutes, go to Step 2 prochlorperazine (COMPAZINE). Do not push through foil backing. Peel back foil and gently remove. Place on tongue immediately. Administration with liquid unnecessary With dry hands, peel back foil backing and gently remove tablet. Do not push oral disintegrating tablet through foil backing. Administer immediately on tongue and oral disintegrating tablet dissolves in seconds, then swallow with saliva. Liquid not required. Or ondansetron (ZOFRAN) injection 4 mgJump to med 4 mg, Intravenous, EVERY 6 HOURS PRN, nausea, vomiting, Administer over 2-5 Minutes, Starting on Mon08/19/22 at 1111, This is Step 1 of nausea and vomiting management. If nausea not resolved in 15 minutes, go to Step 2 prochlorperazine (COMPAZINE). Irritant. Group 2: prochlorperazine (COMPAZINE) injection 10 mgJump to med 10 mg, Intravenous, EVERY 6 HOURS PRN, nausea, vomiting, Administer over 1-2 Minutes, Starting on Mon08/19/22 at 1111, This is Step 2 of nausea and vomiting management. If nausea not resolved in 15-30 minutes, Notify provider. Or prochlorperazine (COMPAZINE) tablet 10 mgJump to med 10 mg, Oral, EVERY 6 HOURS PRN, nausea, vomiting, Starting on Mon08/19/22 at 1111, This is Step 2 of nausea and vomiting management. If nausea not resolved in 15- 30 minutes, Notify provider. documented in this encounter Additional Health Concerns Assessment Noted Time PHQ-9 Depression Total Score: 5 03/02/20 21 7:32 AM MARINE SCIENTIST documented as of this encounter Care Teams Rn Transition Relationship Specialty Start Date End Date Gigi Myers MD [address] [place] [address] [place] [address] PCP - General Internal Medicine 05/05/15 Mery Alicia, LISA Personal Advocate & Liaison (PAL) 08/13/20 Gigi Myers MD [address] [place] [address] [place] [address] Assigned PCP 03/07/21 [place] [address] [place] [address] Assigned Behavioral Health Provider 09/05/21 Donal Bustillos MD [address] [facility] [place], [place] [address] Dermatology 09/28/21 Omer Escoto MD [address] [facility] [place] [address] Ophthalmology 12/20/21 Omer Escoto MD [address] [facility] [place] [address] Assigned Surgical Provider 03/05/22 08/19/22 documented as of this encounter
--- OUTSIDE RECORDS SUMMARY | 2023-05-11 20:21 | XMS_ITS | Encounter Summary ---
Author Name Unknown Organization [place] Address [address] [place] [address] Care Team Providers Care Pest Controller Assistant Name Role Phone Gigi Myers MD Primary Care Provider [phone] Mery Alicia RN Unavailable Unavaila ble Gigi Myers MD Unavailable [phone] Paz Pimentel PhD Unavailable [phone] Donal Bustillos MD Unavailable [phone] Omer Escoto MD Unavailable [phone] Omer Escoto MD Unavailable [phone] Encounter Details Date Type Department Care Team (Latest Contact Info) Description 06/20/2022 Travel Social History Tobacco Use Types Packs/Day [...] week 11/15/2021 How often do you attend [facility] or jehovah's witness services? Never 11/15/2021 Do you belong to any clubs o r organizations such as anabaptist groups, unions, fraternal or athletic groups, or [...] Answer Date Recorded PHQ-2 Score 0 06/20/2022 [facility] - Occupational Stress Questionnaire Answer Date [...] Coronavirus/COVID-19? No / Unsure 06/20/2022 2:07 PM DRONE SOFTWARE DEVELOPMENT ENGINEER documented as of this encounter Plan of Treatment Upcoming Encounters Date Type Department Care Team (Late st Contact Info) Description 05/24/2023 10:30 AM DRONE SOFTWARE DEVELOPMENT ENGINEER Office Visit [address] [address] [place] [address] [place] [address] documented as of this encounter Visit Diagnoses Not on filedocumented in this encounter Additional Health Concerns Assessment Noted Time PHQ-9 Depression Total Score: 5 03/02/20 21 7:32 AM DRONE SOFTWARE DEVELOPMENT ENGINEER documented as of this encounter Care Teams Pest Controller Assistant Relationship Specialty Start Date End Date Gigi Myers MD [address] [facility] [place] [address] PCP - General Internal Medicine 05/05/15 Mery Alicia, LISA Personal Advocate & Liaison (PAL) 08/13/20 Gigi Myers MD [address] [facility] [place] [address] Assigned PCP 03/07/21 [place] [address] [place] [address] Assigned Behavioral Health Provider 09/05/21 Donal Bustillos MD [address] [place] [address] Dermatology 09/28/21 Omer Escoto MD [address] [facility] [place] [address] Ophthalmology 12/20/21 Omer Escoto MD [address] [facility] [address] Assigned Surgical Provider 03/05/22 08/19/22 documented as of this encounter
--- OUTSIDE RECORDS SUMMARY | 2023-05-11 20:21 | XMS_ITS | Encounter Summary ---
Author Name Unknown Organization [facility] Address [facility] [place] [address] Care Team Providers Care Compressed Gases Tester Name Role Phone Gigi Myers MD Primary Care Provider Mery Ailcia RN Unavailable Unavaila ble Gigi Myers MD Unavailable [phone] Paz Pimentel PhD Unavailable [phone] Donal Bustillos MD Unavailable Omer Escoto MD Unavailable [phone] Omer Escoto MD Unavailable [phone] Reason for Visit * Auth/Cert (Routine) Specialty Diagnoses / Procedures Referred By Contac t Referred To Contact Gastroenterology Diagnoses Special screening for malignant neoplasms, colon Special screening for malignant neoplasms, colon [Z12.11] Procedures ND COLONOSCOPY W/WO BRUSH/WASH Colonoscopy Sh Endoscopy [address] [place] [address] Referral ID Status Reason Start Date Expiration Date Visits Re quested Visits Authorized [id number] 1 1 Encounter Details Date Type Department Care Team (Latest Contact Info) Description 08/19/2022 9:18 AM CDT - 08/19/2022 11:14 AM CDT Hospital Encounter [facility] Endoscopy [address] [place] [address] Sun Carlin MD COLON RECTAL SURGERY [address] [place] [address] Discharge Disposition: Home or Self Care Social [...] How often do you attend chur or amish services? Never 11/15/2021 Do you [...] Answer Date Recorded PHQ-2 Score 0 06/20/2022 [facility] - Occupational [...] AM CDT Temperature - - Respiratory Rate 08/19/2022 10:35 AM CDT Oxygen Saturation 99% [...] Age: [age] year old Date of Procedure: 04/28/23 Primary care provider: Gigi Myers Type of [...] st Contact Info) Description 05/24/2023 10:30 AM OXYHYDROGEN WELDER Office Visit [address] [address] [place] [id number] [place] [id number] documented as of this encounter Procedures Procedure Name Priority Date/Time Associated Diagnosis Comments COLONOSCOPY 08/19/2022 10:14 AM CDT Special screening for malignant neoplasms, colon COLONOSCOPY Routine 08/19/2022 9:48 AM CDT documented in this encounter Results * COLONOSCOPY (08/19/2022 9:48 AM CDT) COLONOSCOPY [place] [address] [address] ??[place] ??[address] Patient Name: Samreen Early ? Procedure Date: 08/19/2022 9:48 AM ? Date of : 1975 ?Admit Type: Outpatient Age: 46 ? Room: [place] [address] Note Status: Finalized ?Attending MD: Sun Carlin MD, Instrument Name: 524 [id number] Adult Colon Procedure: ?Colonoscopy Indications: ?Screening for [...] malignant neoplasm of colon CPT copyright 2020 [employer]. All rights reserved. The codes documented in this report are preliminary and upon fire tender review may be revised to meet current [...] RESULTS documented in this encounter Visit Diagnoses Not on filedocumented in this encounter Administered Medications Inactive Administered [...] Total Score: 5 03/02/20 21 7:32 AM OXYHYDROGEN WELDER documented as of this encounter Care Teams Compressed Gases Tester Relationship Specialty Start Date End Date Gigi Myers MD [address] [facility] [place] [address] PCP - General Internal Medicine 05/05/15 Mery Alicia, LISA Personal Advocate & Liaison (PAL) 08/13/20 Gigi Myers MD [address] [facility] [place] [address] Assigned PCP 03/07/21 [place] [address] [place] [address] Assigned Behavioral Health Provider 09/05/21 Donal [facility]ustillos MD [address] [facility] [id number] Dermatology 09/28/21 Omer Escoto MD [address] [facility] [place] [phone] Ophthalmology 12/20/21 Omer Escoto MD [address] [facility] [place] [phone] Assigned Surgical Provider 03/05/22 08/19/22 documented as of this encounter
--- OUTSIDE RECORDS SUMMARY | 2023-05-11 20:22 | XMS_ITS | Encounter Summary ---
Author Name Unknown Organization [place] Address [address] [place] [address] Care Team Providers Care Tool Maintenance Technician Name Role Phone Gigi Myers MD Primary Care Provider [phone] Gigi Myers MD Unavailable [phone] Nilsa García MD Unavailable [phone] Gigi Myers MD Unavailable [phone] Mery Alicia RN Unavailable Unavaila ble Sun Moe MD Unavailable [phone] Gigi Myers MD Unavailable [phone] Lanny Schneider OD Unavailable [phone] Luisa Velez PA-C Unavailable [phone] Paz Pimentel PhD Unavailable [phone] Donal Bustillos MD Unavailable Lanny Schneider OD Unavailable Omer Escoto MD Unavailable [phone] Omer Escoto MD Unavailable [phone] Lanny Schneider OD Unavailable Omer Escoto MD Unavailable Encounter Details Date Type Department Care Team (Late st Contact Info) Description 07/03/2018 [facility] [address] [facility] [address] [place] [phone] Gigi Myers MD [address] [place] [address] [place] [address] Social History Tobacco Use Types Packs/Day Years Used Date Smoking Tobacco: Former Cigarettes 0.5 10 Q uit: 02/02/1999 Smokeless Tobacco: Never Alcohol Use Standard Drinks/Week Comments Yes 0 (1 standard drink = 0.6 oz pur e alcohol) social PHQ-2 Answer Date Recorded PHQ-2 Score 1 05/22/2018 Sex and Gender Information Value Date Recorded Sex Assigned at Not on file Gender Identity Not on file Sexual Orientation Not on file documented as of this encounter Plan of Treatment Upcoming Encounters Date Type Department Care Team (Late st Contact Info) Description 05/24/2023 10:30 AM EMERGENCY MEDICINE MEDICAL DIRECTOR Office Visit [address] [phone] [place]ifer Jimenez [place] [id number] [place] [address] documented as of this encounter Visit Diagnoses Not on filedocumented in this encounter Additional Health Concerns Infection Onset Date Last Indicated Resolved Time Rule Out COVID-19 01/01/2023 01/01/2023 01/02/2023 9:48 AM CDT Assessment Noted Time PHQ-9 Depression Total Score: 6 05/22/19 19 11:15 AM EMERGENCY MEDICINE MEDICAL DIRECTOR documented as of this encounter Care Teams Tool Maintenance Technician Relationship Specialty Start Date End Date Gigi Myers MD [address] [place] [address] [place] [address] PCP - General Internal Medicine 05/05/15 Gigi Myers MD [address] [place] [address] [place] [address] Assigned PCP 06/06/16 07/13/19 Nilsa García MD [address] [place] [address] [place] [address] Assigned PCP 07/14/19 08/24/19 Gigi Myers MD [address] [place] [address] [place] [address] Assigned PCP 08/25/19 08/29/20 Mery Alicia, LISA Personal Advocate & Liaison (PAL) 08/13/20 Sun Moe MD [address] [place] [address] [place] [address] Assigned PCP 08/30/20 03/06/21 Gigi Myers MD [address] [place] [address] [place] [address] Assigned PCP 03/07/21 Lanny Schneider OD [address] [place] [address] [place] [address] Assigned Surgical Provider 03/14/21 05/08/21 Luisa Velez PA-C [address] [place] [address] Assigned Surgical Provider 05/09/21 12/17/21 [place] [address] [place] [address] Assigned Behavioral Health Provider 09/05/21 Donal Bustillos MD [address] [facility] [address] Dermatology 09/28/21 Lanny Schneider OD [address] [facility] [place] [address] Assigned Surgical Provider 12/18/21 03/04/22 Omer Escoto MD [address] [facility] [place] [address] MD Ophthalmology 12/20/21 Omer Escoto MD [address] [facility] [place] [address] Assigned Surgical Provider 03/05/22 08/19/22 Lanny Schneider, FLORENTINO [address] [facility] [place] [address] Assigned Surgical Provider 08/20/22 08/26/22 Omer Escoto MD [address] [facility] [place] [address] Assigned Surgical Provider 08/27/22 documented as of this encounter
--- OUTSIDE RECORDS SUMMARY | 2023-05-11 20:22 | XMS_ITS | Encounter Summary ---
Author Name Unknown Organization [facility] Address [address] [place] [address] Care Team Providers Care Impregnator Operator Name Role Phone Gigi Myers MD Primary Care Provider [phone] Mery Alicia RN Unavailable Unavaila ble Gigi Myers MD Unavailable [phone] Luisa Velez PA-C Unavailable [phone] Paz Pimentel PhD Unavailable [phone] Donal Bustillos MD Unavailable Lanny Schneider OD Unavailable [phone] Omer Escoto MD Unavailable Omer Escoto MD Unavailable [phone] Reason for Visit * Reason Onset Date Comments Refill Request 10/27/2021 nortriptyline (P AMELOR) 25 MG capsule Encounter Details Date Type Department Care Team (Late st Contact Info) Description 10/27/2021 Refill [facility] [place] [address] [place] [address] Drive [address] [place] [address] Lucrecia Larry APRN [facility] [address] [place] [address] Refill Request (nortriptyline (PAMELOR) 25 MG capsule) Social History Tobacco Use Types Packs/Day Years [...] 11/15/2021 How often do you attend chur [employer] or latter-day services? Never 11/15/2021 Do you [...] Answer Date Recorded PHQ-2 Score 0 11/15/2021 [facility] - [...] health care facility (including now)? No 11/15/2021 Sex and Gender Information Value Date Recorded Sex Assigned at Not on file Gender Identity Not on file Sexual Orientation Not on file COVID-19 Exposure Response Date Recorded In the last 10 days, have yo u been in contact with someone who was confirmed or suspected to have Coronavirus/COVID-19? No / Unsure 04/12/2022 9:37 AM PROMOTIONS EXECUTIVE documented as of this encounter Miscellaneous Notes * Telephone Encounter - Katelin Solitario - 10/27/2021 3:25 PM CDT Received fax request from [facility] pharmacy requesting refill(s) for nortriptyline (PAMELOR) 25 MG capsule Last refilled on 10/26/21 Pt last seen on 09/16/21 Next appt scheduled for 11/11/21 Will facilitate refill. 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) documented in this encounter Additional Health Concerns Assessment Noted Time PHQ-9 Depression Total Score: 5 03/02/20 21 7:32 AM PROMOTIONS EXECUTIVE documented as of this encounter Care Teams Impregnator Operator Relationship Specialty Start Date End Date Gigi Myers MD [address] [place] [address] [place] [address] PCP - General Internal Medicine 05/05/15 Mery Alicia, LISA Personal Advocate & Liaison (PAL) 08/13/20 Gigi Myers MD [address] [place] [address] [place] [address] Assigned PCP 03/07/21 Luisa Velez PA-C [address] [place] [address] Assigned Surgical Provider 05/09/21 12/17/21 [place] [address] [place] [address] Assigned Behavioral Health Provider 09/05/21 Donal Bustillos MD [address] [place] [address] Dermatology 09/28/21 Lanny Schneider OD [address] [place] [address] [place] [address] Assigned Surgical Provider 12/18/21 03/04/22 Omer Escoto MD [address] [facility] [place] [address] Ophthalmology 12/20/21 Omer Escoto MD [address] [facility] [place] [address] Assigned Surgical Provider 03/05/22 08/19/22 documented as of this encounter
--- OUTSIDE RECORDS SUMMARY | 2023-05-11 20:22 | XMS_ITS | Encounter Summary ---
Author Name Unknown Organization [facility] Address [address] [place] [address] Care Team Providers Care Whiteprinting Machine Operator Name Role Phone Gigi Myers MD Primary Care Provider [phone] Gigi Myers MD Unavailable [phone] Nilsa García MD Unavailable [phone] Gigi Myers MD Unavailable [phone] Mery Alicia RN Unavailable Unavaila ble Sun Moe MD Unavailable [phone] Gigi Myers MD Unavailable [phone] Lanny Schneider OD Unavailable Luisa Velez PA-C Unavailable [phone] Paz Pimentel PhD Unavailable [phone] Donal Bustillos MD Unavailable Lanny Schneider OD Unavailable Omer Escoto MD Unavailable [phone] Omer Escoto MD Unavailable [phone] Lanny Schneider OD Unavailable [phone] Omer Escoto MD Unavailable [phone] Encounter Details Date Type Department Care Team (Late st Contact Info) Description 02/25/2019 MyC Medical Advice [facility]ien [address] [facility] [address] [place] [phone] Angie Evans LPN Social History Tobacco Use Types Packs/Day Years Used Date Smoking Tobacco: Former Cigarettes 0.5 10 Q uit: 02/02/1999 Smokeless Tobacco: Never Alcohol Use Standard Drinks/Week Comments Yes 0 (1 standard drink = 0.6 oz pur e alcohol) 5/month AUDIT-C Answer Date Recorded Q1: How often do you have a drink containing alc ohol? 2-4 times a month 01/31/2019 Q2: How many drinks containi ng alcohol do you have on a typical day when you are drinking? 1 or 2 01/31/2019 Frequency of Binge Drinking Not on file 01/22 PHQ-2 Answer Date Recorded PHQ-2 Score 1 05/22/2018 Sex and Gender Information Value Date Recorded Sex Assigned at Not on file Gender Identity Not on file Sexual Orientation Not on file documented as of this encounter Plan of Treatment Upcoming Encounters Date Type Department Care Team (Late st Contact Info) Description 05/24/2023 10:30 AM DENTAL FRONT OFFICE ASSISTANT Office Visit [address] [phone] Yenifer Jimenez MD [address] [place] [address] documented as of this encounter Visit Diagnoses Not on filedocumented in this encounter Additional Health Concerns Infection Onset Date Last Indicated Resolved Time Rule Out COVID-19 01/01/2023 01/01/2023 01/02/2023 9:48 AM CDT Assessment Noted Time PHQ-9 Depression Total Score: 6 05/22/19 19 11:15 AM DENTAL FRONT OFFICE ASSISTANT documented as of this encounter Care Teams Whiteprinting Machine Operator Relationship Specialty Start Date End Date Gigi Myers MD [address] [place] [address] [place] [address] PCP - General Internal Medicine 05/05/15 Gigi Myers MD [address] [place] [address] [place] [address] Assigned PCP 06/06/16 07/13/19 Nilsa García MD [address] [place] [address] [place] [address] Assigned PCP 07/14/19 08/24/19 Gigi Myers MD [address] [place] [address] [place] [address] Assigned PCP 08/25/19 08/29/20 Mery Alicia, LISA Personal Advocate & Liaison (PAL) 08/13/20 Sun Moe MD [address] [place] [address] [place] [id number] Assigned PCP 08/30/20 03/06/21 Gigi Myers MD [address] [place] [address] [place] [id number] Assigned PCP 03/07/21 Lanny Schneider OD [address] [place] [address] [place] [address] Assigned Surgical Provider 03/14/21 05/08/21 Luisa Velez PA-C [address] [place] [address] Assigned Surgical Provider 05/09/21 12/17/21 [place] [address] [place] [address] Assigned Behavioral Health Provider 09/05/21 Donal Bustillos MD [address] [place] [address] Dermatology 09/28/21 Lanny Schneider OD [address] [facility] [place] [address] Assigned Surgical Provider 12/18/21 03/04/22 Omer Escoto MD [address] [place] [address] MD Ophthalmology 12/20/21 Omer Escoto MD [address] [place] [address] Assigned Surgical Provider 03/05/22 08/19/22 Lanny Schneider OD [address] [facility] [place] [address] Assigned Surgical Provider 08/20/22 08/26/22 Omer Escoto MD [address] [place] [address] Assigned Surgical Provider 08/27/22 documented as of this encounter
--- OUTSIDE RECORDS SUMMARY | 2023-05-11 20:22 | XMS_ITS | Encounter Summary ---
Author Name Unknown Organization [facility] Address [address] [place] [address] Care Team Providers Care Slitting Machine Feeder Name Role Phone Gigi Myers MD Primary Care Provider [phone] Gigi Myers MD Unavailable [phone] Nilsa García MD Unavailable [phone] Gigi Myers MD Unavailable [phone] Mery Alicia RN Unavailable Unavaila ble Sun Moe MD Unavailable [phone] Gigi Myers MD Unavailable [phone] Lanny Schneider OD Unavailable Luisa Velez PA-C Unavailable [phone] Paz Pimentel PhD Unavailable [phone] Donal Bustillos MD Unavailable Lanny Schneider OD Unavailable Omer Escoto MD Unavailable Omer Escoto MD Unavailable [phone] Lanny Schneider OD Unavailable Omer Escoto MD Unavailable Reason for Visit * Reason Onset Date Comments Anxiety 10/17/2018 Encounter Details Date Type Department Care Team (Late st Contact Info) Description 10/17/2018 MyC Medical Advice [facility] [address] [place] [address] Gigi Myers MD [address] [facility] [place] [address] Anxiety Social History Tobacco Use Types Packs/Day Years [...] encounter Miscellaneous Notes * Telephone Encounter - Dianelys Valentine RN - 10/17/2018 7:13 AM CDT Patient sent my chart message update on Mood after increased dosage change with Evisit from June. Please review and advise, Dianelys Landeros RN [facility] documented in this encounter Plan of Treatment Upcoming Encounters Date Type Department Care Team (Late st Contact Info) Description 05/24/2023 10:30 AM FAUCET POLISHER Office Visit [address] [phone] Dennis July MD [place] [id number] [place] [address] documented as of this encounter Visit Diagnoses Diagnosis Generalized anxiety disorder- Primary documented in this encounter Additional Health Concerns Infection Onset Date Last Indicated Resolved Time Rule Out COVID-19 01/01/2023 01/01/2023 01/02/2023 9:48 AM CDT Assessment Noted Time PHQ-9 Depression Total Score: 6 05/22/19 19 11:15 AM FAUCET POLISHER documented as of this encounter Care Teams Slitting Machine Feeder Relationship Specialty Start Date End Date Gigi Myers MD [address] [place] [address] [place] [address] PCP - General Internal Medicine 05/05/15 Gigi Myers MD [address] [place] [address] [place] [address] Assigned PCP 06/06/16 07/13/19 Nilsa García MD [address] [place] [address] [place] [address] Assigned PCP 07/14/19 08/24/19 iGgi Myers MD [address] [place] [address] [place] [address] Assigned PCP 08/25/19 08/29/20 Mery Alicia, LISA Personal Advocate & Liaison (PAL) 08/13/20 Sun Moe MD [address] [place] [address] [place] [address] Assigned PCP 08/30/20 03/06/21 Gigi Myers MD [address] [place] [address] [place] [address] Assigned PCP 03/07/21 Lanny Schneider OD [address] [place] [address] [place] [address] Assigned Surgical Provider 03/14/21 05/08/21 Luisa Velez PA-C [address] [place] [address] Assigned Surgical Provider 05/09/21 12/17/21 [place] [address] [place] [address] Assigned Behavioral Health Provider 09/05/21 Donal Bustillos MD [address] [facility] [address] Dermatology 09/28/21 Lanny Schneider, OD [address] [place] [address] [place] [address] Assigned Surgical Provider 12/18/21 03/04/22 Omer Escoto MD [address] [facility] [place] [phone] MD Ophthalmology 12/20/21 Omer Escoto MD [address] [facility] [place] [id number] Assigned Surgical Provider 03/05/22 08/19/22 Lanny Schneider, OD [address] [place] [address] [place] [address] Assigned Surgical Provider 08/20/22 08/26/22 Omer Escoto MD [address] [facility] [place] [id number] Assigned Surgical Provider 08/27/22 documented as of this encounter
--- OUTSIDE RECORDS SUMMARY | 2023-05-11 20:22 | XMS_ITS | Encounter Summary ---
Author Name Unknown Organization [facility] Address [address] [place] [address] Care Team Providers Care Brine Tank Operator Name Role Phone Gigi Myers MD Primary Care Provider [phone] Gigi Myers MD Unavailable [phone] Gigi Myers MD Unavailable [phone] Nilsa García MD Unavailable [phone] Gigi Myers MD Unavailable [phone] Mery Alicia RN Unavailable Unavaila ble Sun Moe MD Unavailable [phone] Gigi Myers MD Unavailable [phone] Lanny Schneider OD Unavailable Luisa Velez PA-C Unavailable [phone] Paz Pimentel PhD Unavailable [phone] Donal Bustillos MD Unavailable Lanny Schneider OD Unavailable Omer Escoto MD Unavailable [phone] Omer Escoto MD Unavailable [phone] Lanny Schneider OD Unavailable Omer Escoto MD Unavailable [phone] Reason for Visit * Reason Onset Date Comments Panel Management 01/26/2018 Encounter Details Date Type Department Care Team (Late st Contact Info) Description 01/26/2018 Telephone [facility] [address] [place] [phone] Gigi Myers MD [address] [facility] [place] [address] Panel Management Social History Tobacco Use Types Packs/Day Years Used Date Smoking Tobacco: Former Cigarettes 0.5 10 Q uit: 02/02/1999 Smokeless Tobacco: Never Alcohol Use Standard Drinks/Week Comments Yes 0 (1 standard drink = 0.6 oz pur e alcohol) social Sex and Gender Information Value Date Recorded Sex Assigned at Not on file Gender Identity Not on file Sexual Orientation Not on file documented as of this encounter Miscellaneous Notes * Telephone Encounter - Binta Slaughter CMA - 02/21/2018 12:31 PM CDT Attempt #2. Sent letter. Will postpone for 2 weeks. Binta Slaughter CMA * Telephone Encounter - Binta Slaughter CMA - 01/26/2018 2:59 PM CDT Panel Management Review Patient has the following on her problem list: Asthma review ACT Total Scores 11/15/2016 ACT TOTAL SCORE - ASTHMA ER VISITS - ASTHMA HOSPITALIZATIONS - ACT TOTAL SCORE (Goal Greater than or Equal to 20) 25 In the past 12 months, how many times did you visit the emergency room for your asthma without being admitted to the hospital? 0 In the past 12 months, how many times were you hospitalized overnight because of your asthma? 0 1. Is Asthma diagnosis on the Problem List? Yes 2. Is Asthma listed on Health Maintenance? Yes 3. Patient is due for: ACT and AAP Composite cancer screening Chart review shows that this patient is due/due soon for the following Pap Smear Summary: Patient is due/failing the following: AAP, ACT and PAP Action needed: Patient needs office visit for PAP. and Patient needs to do ACT. Type of outreach: Sent Aprilage message. Questions for provider review: None Binta Slaughter CMA Chart routed to self. documented in this encounter Plan of Treatment Upcoming Encounters Date Type Department Care Team (Late st Contact Info) Description 05/24/2023 10:30 AM YOUTH MINISTRY DIRECTOR Office Visit [facility] [id number] [place] [phone] [place] [address] [place] [address] documented as of this encounter Visit Diagnoses Not on filedocumented in this encounter Additional Health Concerns Infection Onset Date Last Indicated Resolved Time Rule Out COVID-19 01/01/2023 01/01/2023 01/02/2023 9:48 AM CDT documented as of this encounter Care Teams Brine Tank Operator Relationship Specialty Start Date End Date Gigi Myers MD [address] [place] [address] [place] [address] PCP - General Internal Medicine 05/05/15 Gigi Myers MD [address] [place] [address] [place] [address] PCP - Assigned PCP 06/06/16 06/26/18 Gigi Myers MD [address] [place] [address] [place] [address] Assigned PCP 06/06/16 07/13/19 Nilsa García MD [address] [place] [address] [place] [address] Assigned PCP 07/14/19 08/24/19 Gigi Myers MD [address] [place] [address] [place] [address] Assigned PCP 08/25/19 08/29/20 Mery Alicia, LISA Personal Advocate & Liaison (PAL) 08/13/20 Sun Moe MD [address] [place] [address] [place] [address] Assigned PCP 08/30/20 03/06/21 Gigi Myers MD [address] [place] [address] [place] [address] Assigned PCP 03/07/21 Lanny Schneider OD [address] [place] [address] [place] [address] Assigned Surgical Provider 03/14/21 05/08/21 Luisa Velez PA-C [address] [address] Assigned Surgical Provider 05/09/21 12/17/21 Paz Pimentel, PhD [address] [place] [address] Assigned Behavioral Health Provider 09/05/21 Donal Bustillos MD [address] [place] [address] Dermatology 09/28/21 Lanny Schneider OD [address] [place] [address] [place] [address] Assigned Surgical Provider 12/18/21 03/04/22 Omer Escoto MD [address] [facility] [place] [phone] MD Ophthalmology 12/20/21 Omer Escoto MD [address] [facility] [place] [address] Assigned Surgical Provider 03/05/22 08/19/22 Lanny Schneider OD [address] [facility] [place] [address] Assigned Surgical Provider 08/20/22 08/26/22 Omer Escoto MD [address] [facility] [place] [address] Assigned Surgical Provider 08/27/22 documented as of this encounter
--- OUTSIDE RECORDS SUMMARY | 2023-05-11 20:22 | XMS_ITS | Clinical Summary ---
Author Name Unknown Organization [facility] Address [address] [place] [address] Care Team Providers Care City Editor Name Role Phone Zara Ocampo MD Unavailable Clinic, Not Listed Unavailable Unavailable Gigi Myers Primary Care Provider [phone] Allergies Active Allergy Reactions Criticality Noted Date Comments No Known Allergies 09/02/2009 Medications Medication Sig Dispensed Refills Start Date End Date Status ETONOGESTREL/ETHINYL ESTRADIOL (NUVARING VAGL) Insert intravaginally. 0 Active Psyllium Seed-Sucrose (METAMUCIL) Oral Powd Take by mouth daily. 0 Active alprazolam (XANAX) 0.25 mg Oral Tab Take 3 Tabs by mouth three times a day. Take prior to biopsy 0 Active Social History Tobacco Use Types Packs/Day Years Used Date Smoking Tobacco: Never Assessed Sex and Gender Information Value Date Recorded Sex Assigned at Not on file Gender Identity Not on file Sexual Orientation Not on file Plan of Treatment Health Maintenance Due Date Last Done Comments Colonoscopy 1974 Hepatitis C Screening 1974 Lipid Screening 1974 Anxiety Screening (MARIE-2) 09/06/1975 Depression Assessment (PHQ-2) 09/06/1975 Pneumococcal <65 (1 of 2 - PCV) 1980 Adult Tetanus Booster 1993 Pap Smear 02/21/2005 02/21/2002, 01/23, 01/26/2000, Additional history exists COVID-19 Vaccine ( - 2022-2 4 season) 2022 12/17/2021, 01/16/2021, 12/26/2020 Influenza Vaccine (#1) 2022 Mammogram Screening 10/28/2024 10/28/2022, 10/14/2021, 10/14/2020, Additional history exists Care Teams City Editor Relationship Specialty Start Date End Date Zara Ocampo MD PCP - Obstetrics Obstetrics/Gynecology 09/28/18 Clinic, Not Listed PCP - Primary Care Clinic 10/08/20 Gigi Myers [address] [facility] [place] [address] PCP - General 10/08/20
--- OUTSIDE RECORDS SUMMARY | 2023-05-11 20:22 | XMS_ITS | Referral Summary ---
Author Name Unknown Organization [facility] Address [address] [place] [address] Care Team Providers Care Director Human Services Name Role Phone Zara Ocampo MD Unavailable Clinic, Not Listed Unavailable Unavailable Gigi Myers Primary Care Provider [phone] Allergies Active Allergy Reactions Criticality Noted Date [...] Orientation Not on file Plan of Treatment Not on file Care Teams Director Human Services Relationship Specialty Start Date End Date Zara Ocampo MD PCP - Obstetrics Obstetrics/Gynecology 09/28/18 Clinic, Not Listed PCP - Primary Care Clinic 10/08/20 Gigi Myers [address] [place] [address] [place] [address] PCP - General 10/08/20
--- OUTSIDE RECORDS SUMMARY | 2023-05-11 20:22 | XMS_ITS | Encounter Summary ---
Author Name Unknown Organization [facility] Address [address] [place] [address] Care Team Providers Care Cnc Supervisor Name Role Phone Gigi Myers MD Primary Care Provider [phone] Mery Alicia RN Unavailable Unavaila ble Sun Moe MD Unavailable [phone] Gigi Myers MD Unavailable [phone] Lanny Schneider OD Unavailable Luisa Velez PA-C Unavailable [phone] Paz Pimentel PhD Unavailable Donal Bustillos MD Unavailable Lanny Schneider OD Unavailable Omer Escoto MD Unavailable [phone] Omer Escoto MD Unavailable Lanny Schneider OD Unavailable Omer Escoto MD Unavailable [phone] Encounter Details Date Type Department Care Team (Late st Contact Info) Description 09/02/2020 [facility] [address] [place] [address] Qi Price, HERNÁN Social History Tobacco Use Types Packs/Day Years [...] 01/22 PHQ-2 Answer Date Recorded PHQ-2 Score 0 06/12/2020 Sex and Gender Information Value Date Recorded Sex Assigned at Not on file Gender Identity Not on file Sexual Orientation Not on file COVID-19 Exposure Response Date Recorded In the last month, have you been in contact with someone who was confirmed or suspected to have Coronavirus / COVID-19? No / Unsure 08/31/2020 11:14 AM CDT documented as of this encounter Plan of Treatment Upcoming Encounters Date Type Department Care Team (Late st Contact Info) Description 05/24/2023 10:30 AM RESEARCH GROUP DIRECTOR Office Visit [address] [address] [place] [id number] [place] [address] documented as of this encounter Visit Diagnoses Not on filedocumented in this encounter Additional Health Concerns Infection Onset Date Last Indicated Resolved Time Rule Out COVID-19 01/01/2023 01/01/2023 01/02/2023 9:48 AM CDT Assessment Noted Time PHQ-9 Depression Total Score: 6 05/22/19 19 11:15 AM RESEARCH GROUP DIRECTOR documented as of this encounter Care Teams Cnc Supervisor Relationship Specialty Start Date End Date Gigi Myers MD [address] [place] [address] [place] [address] PCP - General Internal Medicine 05/05/15 Mery Alicia RN Personal Advocate & Liaison (PAL) 08/13/20 Sun Moe MD [address] [place] [address] Assigned PCP 08/30/20 03/06/21 [place] [address] [place] [address] [place] [address] Assigned PCP 03/07/21 [place] [address] [place] [address] [place] [address] Assigned Surgical Provider 03/14/21 05/08/21 Luisa Velez PA-C [address] [place] [address] Assigned Surgical Provider 05/09/21 12/17/21 [place] [address] [place] [address] Assigned Behavioral Health Provider 09/05/21 Donal Bustillos MD [address] [place] [address] Dermatology 09/28/21 Lanny Schneider OD [address] [place] [address] [place] [address] Assigned Surgical Provider 12/18/21 03/04/22 Omer Escoto MD [address] [place] [phone] Ophthalmology 12/20/21 Omer Escoto MD [address] [facility] [place] [id number] Assigned Surgical Provider 03/05/22 08/19/22 Lanny Schneider OD [address] [facility] [place] [address] Assigned Surgical Provider 08/20/22 08/26/22 Omer Escoto MD [address] [facility] [place] [address] Assigned Surgical Provider 08/27/22 documented as of this encounter
--- OUTSIDE RECORDS SUMMARY | 2023-05-11 20:22 | XMS_ITS | Encounter Summary ---
Author Name Unknown Organization [facility] Address [address] [place] [address] Care Team Providers Care Adapted Physical Education Specialist Name Role Phone Gigi Myers MD Primary Care Provider [phone] Gigi Myers MD Unavailable [phone] Nilsa García MD Unavailable [phone] Gigi Myers MD Unavailable [phone] Mery Alicia RN Unavailable Unavaila ble Sun Moe MD Unavailable [phone] Gigi Myers MD Unavailable [phone] Lanny Schneider OD Unavailable Luisa Velez PA-C Unavailable [phone] Paz Pimentel PhD Unavailable [phone] Donal Bustillos MD Unavailable Lanny Schneider OD Unavailable Omer Escoto MD Unavailable Omer Escoto MD Unavailable [phone] Lanny Schneider OD Unavailable Omer Escoto MD Unavailable [phone] Encounter Details Date Type Department Care Team (Late st Contact Info) Description 05/28/2019 MyC Medical Advice [facility] [address] [facility] [address] [place] [address] Jammie Melendez Social History Tobacco Use Types Packs/Day Years [...] st Contact Info) Description 05/24/2023 10:30 AM SECOND WATCH SERGEANT Office Visit [address] [phone] Yenifer Jimenez MD [address] [place] [address] documented as of this encounter Visit Diagnoses Not on filedocumented in this encounter Additional Health Concerns Infection Onset Date Last Indicated Resolved Time Rule Out COVID-19 01/01/2023 01/01/2023 01/02/2023 9:48 AM CDT Assessment Noted Time PHQ-9 Depression Total Score: 6 05/22/19 19 11:15 AM SECOND WATCH SERGEANT documented as of this encounter Care Teams Adapted Physical Education Specialist Relationship Specialty Start Date End Date Gigi Myers MD [address] [place] [address] [place] [address] PCP - General Internal Medicine 05/05/15 Gigi Myers MD [address] [place] [address] [place] [address] Assigned PCP 06/06/16 07/13/19 Nilsa García MD [address] [place] [address] [place] [address] Assigned PCP 07/14/19 08/24/19 Gigi Myers MD [address] [place] [address] [place] [address] Assigned PCP 08/25/19 08/29/20 Mery Alicia, LISA Personal Advocate & Liaison (PAL) 08/13/20 Sun Moe MD [address] [place] [address] J[place]IEN [place] [id number] Assigned PCP 08/30/20 03/06/21 Gigi Myers MD [address] [place] [address] [place] [address] Assigned PCP 03/07/21 Lanny Schneider OD [address] [place] [address] [place] [address] Assigned Surgical Provider 03/14/21 05/08/21 Luisa Velez PA-C [address] [place] [address] Assigned Surgical Provider 05/09/21 12/17/21 P[place] [address] [place] [address] Assigned Behavioral Health Provider 09/05/21 Donal Bustillos MD [address] [place] [address] Dermatology 09/28/21 Lanny Schneider OD [address] [facility] [place] [address] Assigned Surgical Provider 12/18/21 03/04/22 Omer Escoto MD [address] [place] [address] Ophthalmology 12/20/21 Omer Escoto MD [address] [place] [address] Assigned Surgical Provider 03/05/22 08/19/22 Lanny Schneider OD [address] [facility] [place] [address] Assigned Surgical Provider 08/20/22 08/26/22 Omer Escoto MD [address] [facility] [place] [address] Assigned Surgical Provider 08/27/22 documented as of this encounter
--- OUTSIDE RECORDS SUMMARY | 2023-05-11 20:22 | XMS_ITS | Encounter Summary ---
Author Name Unknown Organization [facility] Address [address] [place] [address] Care Team Providers Care Functional Mental Disability Teacher Name Role Phone Zara Ocampo MD Unavailable Clinic, Not Listed Unavailable Unavailable Gigi Myers Primary Care Provider [phone] Reason for Referral * (Routine) - Pending Review Specialty Diagnoses / Procedures Referred By Lisa smith Referred To Contact Diagnoses Visit for screening mammogram Procedures MAMMO LEO SCREENING Zara Hernadez MD [address] [place] [address] Referral ID Status Reason Start Date Expiration Date V isits Requested Visits Authorized [id number] Pending Review 05/23/2022 1 1 Reason for Visit * (Routine) - Pending Review Specialty Diagnoses / Procedures Referred By Lisa smith Referred To Contact Diagnoses Visit for screening mammogram Procedures MAMMO LEO SCREENING Zara Hernadez MD [address] [place] [address] Referral ID Status Reason Start Date Expiration Date V isits Requested Visits Authorized [id number] Pending Review 05/23/2022 1 1 Encounter Details Date Type Department Care Team (Latest Contact Info) Description 10/28/2022 11:58 AM CDT - 10/28/2022 11:59 PM CDT Hospital Encounter [address] [address] Discharge Disposition: Returning Home/Self Care Social History Tobacco Use Types Packs/Day [...] suspected to have Coronavirus/COVID-19? No / Unsure 10/28/2022 11:58 AM CDT documented as of this encounter Medications at Time of Discharge Medication Sig Dispensed Refills Start Date End Date alprazolam (XANAX) 0.25 mg Oral Tab Take 3 Tabs by mouth three times a day. Take prior to biopsy 0 ETONOGESTREL/ETHINYL ESTRADIOL (NUVARING VAGL) Insert intravaginally. 0 Psyllium Seed-Sucrose (METAMUCIL) Oral Powd Take by mouth daily. 0 documented as of this encounter Plan of Treatment Not on file documented as of this encounter Procedures Procedure Name Priority Date/Time Associated Diagnosis Comments MAMMO LEO SCREENING BI Routine 10/28/2022 12:08 PM CDT Visit for screening mammogram documented in this encounter Results * MAMMO LEO SCREENING BI (10/28/2022 12:08 PM CDT) Anatomical Region Laterality Modality Breast Bilateral Mammography Impressions 10/28/2022 12:39 PM CDT : There is no mammographic evidence of malignancy. ? RECOMMENDATION: ?? A follow-up mammogram in 1 year is strongly recommended. BI-RADS: Overall: 2 - Benign The patient will be notified of the results. REPORT SIGNED BY Manuel Villalobos MD Narrative 10/28/2022 12:39 PM CDT EXAM: MAMMO LEO SCREENING BI REASON FOR EXAM: Routine screening mammogram COMPARISON: ??Compared to: 10/14/2021 MAMMO LEO SCREENING BI, 10/14/2020 MAMMO LEO SCREENING BI, 10/11/2019 MAMMO DIGITAL SCREENING BI, and 09/28/2018 MAMMO DIGITAL SCREENING BI TECHNIQUE: Craniocaudal and oblique digital views were obtained. ??Tomosynthesis technique was also utilized. Current study was evaluated with Computer Aided Detection (CAD) system. FINDINGS: The breasts are heterogeneously dense. ??There is a biopsy marking clip present in the right breast. ??No significant masses, calcifications, or other findings are seen. ??There has been no significant interval change. Zara Ocampo MD MAMMO ORDERABLE documented in this encounter Visit Diagnoses Diagnosis Visit for screening mammogram Other screening mammogram documented in this encounter Care Teams Functional Mental Disability Teacher Relationship Specialty Start Date End Date Zara Ocampo MD PCP - Obstetrics Obstetrics/Gynecology 09/28/18 Clinic, Not Listed PCP - Primary Care Clinic 10/08/20 Gigi Myers [address] [facility] [place] [address] PCP - General 10/08/20 documented as of this encounter
--- OUTSIDE RECORDS SUMMARY | 2023-05-11 20:22 | XMS_ITS | Encounter Summary ---
Author Name Unknown Organization [facility] Address [address] [place] [address] Care Team Providers Care Filter Press Pumper Name Role Phone Gigi Myers MD Primary Care Provider [phone] Gigi Myers MD Unavailable [phone] Gigi Myers MD Unavailable [phone] Nilsa García MD Unavailable [phone] Gigi Myers MD Unavailable [phone] Mery Alicia RN Unavailable Unavaila ble Sun Moe MD Unavailable [phone] Gigi Myers MD Unavailable [phone] Lanny Schneider OD Unavailable [phone] Luisa Velez PA-C Unavailable [phone] Paz Pimentel PhD Unavailable [phone] Donal Bustillos MD Unavailable Lanny Schneider OD Unavailable [phone] Omer Escoto MD Unavailable [phone] Omer Escoto MD Unavailable [phone] Lanny Schneider OD Unavailable Omer Escoto MD Unavailable [phone] Encounter Details Date Type Department Care Team (Late st Contact Info) Description 11/16/2015 MyC Medical Advice [place] [id number] [facility] Julien [place] [phone] Zara Schneider MA Social History Tobacco Use Types Packs/Day Years Used Date Smoking Tobacco: Former Cigarettes 0.5 10 Q uit: 02/02/1999 Smokeless Tobacco: Never Alcohol Use Standard Drinks/Week Comments Yes 1.7 (1 standard drink = 0.6 oz p ure alcohol) social Sex and Gender Information Value Date Recorded Sex Assigned at Not on file Gender Identity Not on file Sexual Orientation Not on file documented as of this encounter Plan of Treatment Upcoming Encounters Date Type Department Care Team (Late st Contact Info) Description 05/24/2023 10:30 AM ASSOCIATE JAVA DEVELOPER Office Visit [address] [address] Dennis July MD [place] [phone] [place] [address] documented as of this encounter Visit Diagnoses Not on filedocumented in this encounter Additional Health Concerns Infection Onset Date Last Indicated Resolved Time Rule Out COVID-19 01/01/2023 01/01/2023 01/02/2023 9:48 AM CDT documented as of this encounter Care Teams Filter Press Pumper Relationship Specialty Start Date End Date Ggii Myers MD [address] [place] [address] [place] [address] PCP - General Internal Medicine 05/05/15 Gigi Myers MD [address] [place] [address] [place] [address] PCP - Assigned PCP 06/06/16 06/26/18 Gigi Myers MD [address] [place] [address] [place] [address] Assigned PCP 06/06/16 07/13/19 Nilsa García MD [address] [place] [address] [place] [address] Assigned PCP 07/14/19 08/24/19 Gigi Myers MD [address] [place] [address] [place] [address] Assigned PCP 08/25/19 08/29/20 Mery Alicia, LISA Personal Advocate & Liaison (PAL) 08/13/20 Sun Moe MD [address] [place] [address] [place] [address] Assigned PCP 08/30/20 03/06/21 Gigi Myers MD [address] [place] [address] [place] [address] Assigned PCP 03/07/21 Lanny Schneider OD [address] [place] [address] [place] [address] Assigned Surgical Provider 03/14/21 05/08/21 Luisa Velez PA-C [address] [place] [address] Assigned Surgical Provider 05/09/21 12/17/21 [place] [address] [place] [address] Assigned Behavioral Health Provider 09/05/21 Donal Bustillos MD [facility] [address] Dermatology 09/28/21 Lanny Schneider OD [address]305 [facility] [place] [address] Assigned Surgical Provider 12/18/21 03/04/22 Omer Escoto MD [address] [facility] [place] [address] MD Ophthalmology 12/20/21 Omer Escoto MD [address] [facility] [place] [address] Assigned Surgical Provider 03/05/22 08/19/22 Lanny Schneider OD [address]305 [facility] [place] [address] Assigned Surgical Provider 08/20/22 08/26/22 Omer Esctoo MD [address] [facility] [place] [address] Assigned Surgical Provider 08/27/22 documented as of this encounter
--- OUTSIDE RECORDS SUMMARY | 2023-05-11 20:22 | XMS_ITS | Encounter Summary ---
Author Name Unknown Organization [facility] Address [address] [place] [address] Care Team Providers Care Vector Control Specialist Name Role Phone Zara Ocampo MD Unavailable Clinic, Not Listed Unavailable Unavailable Gigi Myers Primary Care Provider [phone] Encounter Details Date Type Department Care Team (Latest Contact Info) Description 10/28/2022 Travel Social History Tobacco Use Types Packs/Day [...] on filedocumented in this encounter Care Teams Vector Control Specialist Relationship Specialty Start Date End Date Zara Ocampo MD PCP - Obstetrics Obstetrics/Gynecology 09/28/18 Clinic, Not Listed PCP - Primary Care Clinic 10/08/20 Gigi Myers [address] [place] [address] [place] [address] PCP - General 10/08/20 documented as of this encounter
--- OUTSIDE RECORDS SUMMARY | 2023-05-11 20:22 | XMS_ITS | Encounter Summary ---
Author Name Unknown Organization [facility] Address [address] [place] [address] Care Team Providers Care Adz Worker Name Role Phone Gigi Myers MD Primary Care Provider [phone] Gigi Myers MD Unavailable Nilsa García MD Unavailable [phone] Gigi Myers MD Unavailable [phone] Mery Alicia RN Unavailable Unavaila ble Sun Moe MD Unavailable [phone] Gigi Myers MD Unavailable [phone] Lanny Schneider OD Unavailable Luisa Velez PA-C Unavailable [phone] Paz Pimentel PhD Unavailable [phone] Donal Bustillos MD Unavailable [phone] Lanny Schneider OD Unavailable Omer Escoto MD Unavailable Omer Escoto MD Unavailable [phone] Lanny Schneider OD Unavailable Omer Escoto MD Unavailable [phone] Encounter Details Date Type Department Care Team (Late st Contact Info) Description 08/29/2018 MyC Medical Advice [facility] Julien [address] [place] [phone] Jammie Melendez Social History Tobacco Use Types [...] st Contact Info) Description 05/24/2023 10:30 AM WASHER OPERATOR Office Visit [address] [phone] [place]enez [place] [id number] [place] [address] documented as of this encounter Visit Diagnoses Not on filedocumented in this encounter Additional Health Concerns Infection Onset Date Last Indicated Resolved Time Rule Out COVID-19 01/01/2023 01/01/2023 01/02/2023 9:48 AM CDT Assessment Noted Time PHQ-9 Depression Total Score: 6 05/22/19 19 11:15 AM WASHER OPERATOR documented as of this encounter Care Teams Adz Worker Relationship Specialty Start Date End Date Gigi Myers MD [address] [place] [address] [place] [address] PCP - General Internal Medicine 05/05/15 Gigi Myers MD [address] [place] [address] [place] [address] Assigned PCP 06/06/16 07/13/19 Nilsa García MD [address] [place] [address] [place] [address] Assigned PCP 07/14/19 08/24/19 Gigi Myers MD [address] [place] [address] [place] [address] Assigned PCP 08/25/19 08/29/20 Mery Alicia, LISA Personal Advocate & Liaison (PAL) 08/13/20 Sun Moe MD [address] [place] [address] [place] [address] Assigned PCP 08/30/20 03/06/21 Gigi Myers MD [address] [place] [address] [place] [address] Assigned PCP 03/07/21 Lanny Schneider OD [address] [place] [address] [place] [address] Assigned Surgical Provider 03/14/21 05/08/21 Luisa Velez PA-C [address] [place] [address] Assigned Surgical Provider 05/09/21 12/17/21 [place] [address] [place] [address] Assigned Behavioral Health Provider 09/05/21 Donal Bustillos MD [facility] [facility] [address] Dermatology 09/28/21 Lanny Schneider OD [address] [place] [address] [place] [address] Assigned Surgical Provider 12/18/21 03/04/22 Omer Escoto MD [address] [facility] [place] [phone] MD Ophthalmology 12/20/21 Omer Escoto MD [address] [facility] [place] [address] Assigned Surgical Provider 03/05/22 08/19/22 Lanny Schneider OD 3305 [facility] [place] [address] Assigned Surgical Provider 08/20/22 08/26/22 Omer Escoto MD [address] [facility] [place] [address] Assigned Surgical Provider 08/27/22 documented as of this encounter
--- OUTSIDE RECORDS SUMMARY | 2023-05-11 20:22 | XMS_ITS | Encounter Summary ---
Author Name Unknown Organization [facility] Address [address] [place] [address] Care Team Providers Care Foster Care Therapist Name Role Phone Gigi Myers MD Primary Care Provider [phone] Mery Alicia RN Unavailable Unavaila ble Gigi Myers MD Unavailable [phone] Lanny Schneider OD Unavailable [phone] Luisa Velez PA-C Unavailable [phone] Paz Pimentel PhD Unavailable [phone] Donal Bustillos MD Unavailable Lanny Schneider OD Unavailable Omer Escoto MD Unavailable [phone] Omer Escoto MD Unavailable [phone] Lanny Schneider OD Unavailable Omer Escoto MD Unavailable [phone] Encounter Details Date Type Department Care Team (Late st Contact Info) Description 05/03/2021 Documentation Only INTERFACED REPORT Unknown, Provider Social History Tobacco Use Types Packs/Day Years [...] file 01/22 PHQ-2 Answer Date Recorded PHQ-2 Total Score (Adult) - Positive if 3 or more points; Administer PHQ-9 if positive 0 03/01/2021 Sex and Gender Information Value Date Recorded Sex Assigned at Not on file Gender Identity Not on file Sexual Orientation Not on file COVID-19 Exposure Response Date Recorded In the last month, have you been in contact with someone who was confirmed or suspected to have Coronavirus / COVID-19? No / Unsure 05/03/2021 12:24 PM LANGUAGE INSTRUCTOR documented as of this encounter Plan of Treatment Upcoming Encounters Date Type Department Care Team (Late st Contact Info) Description 05/24/2023 10:30 AM LANGUAGE INSTRUCTOR Office Visit [facility] [address] [place] [phone] [place] [address] [place] [address] documented as of this encounter Visit Diagnoses Not on filedocumented in this encounter Additional Health Concerns Infection Onset Date Last Indicated Resolved Time Rule Out COVID-19 01/01/2023 01/01/2023 01/02/2023 9:48 AM CDT Assessment Noted Time PHQ-9 Depression Total Score: 5 03/02/20 21 7:32 AM LANGUAGE INSTRUCTOR documented as of this encounter Care Teams Foster Care Therapist Relationship Specialty Start Date End Date Gigi Myers MD [address] [place] [address] [place] [address] PCP - General Internal Medicine 05/05/15 Mery Alicia, LISA Personal Advocate & Liaison (PAL) 08/13/20 Gigi Myers MD [address] [place] [address] [place] [address] Assigned PCP 03/07/21 Lanny Schneider OD 3305 [facility] [place] [address] Assigned Surgical Provider 03/14/21 05/08/21 Luisa Velez PA-C [address] [place] [address] Assigned Surgical Provider 05/09/21 12/17/21 P[place] [address] [place] [address] Assigned Behavioral Health Provider 09/05/21 Donal Bustillos MD 5200 [place] [address] MD Dermatology 09/28/21 [place] [address] [place] [address] [place] [address] Assigned Surgical Provider 12/18/21 03/04/22 Omer Escoto MD 6341 [facility] [place] [address] Ophthalmology 12/20/21 Omer Escoto MD [address] [facility] [place] [address] Assigned Surgical Provider 03/05/22 08/19/22 Lanny Schneider OD [address] [place] [address] [place] [address] Assigned Surgical Provider 08/20/22 08/26/22 Omer Escoto MD 6341 [facility] [place] [address] Assigned Surgical Provider 08/27/22 documented as of this encounter
--- OUTSIDE RECORDS SUMMARY | 2023-05-11 20:22 | XMS_ITS | Encounter Summary ---
Author Name Unknown Organization [facility] Address [address] [place] [address] Care Team Providers Care Box Truck Driver Name Role Phone Gigi Myers MD Primary Care Provider [phone] Gigi Myers MD Unavailable [phone] Gigi Myers MD Unavailable [phone] Nilsa García MD Unavailable [phone] Gigi Myers MD Unavailable [phone] Mery Alicia RN Unavailable Unavaila ble Sun Moe MD Unavailable [phone] Gigi Myers MD Unavailable [phone] Lanny Schneider OD Unavailable Luisa Velez PA-C Unavailable [phone] Paz Pimentel PhD Unavailable [phone] Donal Bustillos MD Unavailable Lanny Schneider OD Unavailable Omer Escoto MD Unavailable [phone] Omer Escoto MD Unavailable [phone] Lanny Schneider OD Unavailable Omer Escoto MD Unavailable [phone] Encounter Details Date Type Department Care Team (Late st Contact Info) Description 01/26/2018 MyC Medical Advice [facility] [address] [place] [phone] Binta Slaughter, GHADA Social History Tobacco Use Types Packs/Day Years [...] st Contact Info) Description 05/24/2023 10:30 AM COLLAR SETTER Office Visit [address] [address] Dennis Ramachandran Yenifer MD [place] [phone] [place] [address] documented as of this encounter Visit Diagnoses Not on filedocumented in this encounter Additional Health Concerns Infection Onset Date Last Indicated Resolved Time Rule Out COVID-19 01/01/2023 01/01/2023 01/02/2023 9:48 AM CDT documented as of this encounter Care Teams Box Truck Driver Relationship Specialty Start Date End Date Gigi Myers MD [address] [place] [address] [place] [address] PCP - General Internal Medicine 05/05/15 Gigi Myers MD [address] [place] [address] [place] [address] PCP - Assigned PCP 06/06/16 06/26/18 Gigi Myers MD [address] [place] [address] [place] [address] Assigned PCP 06/06/16 07/13/19 Nilsa García MD [address] [place] [address] [place] [address] Assigned PCP 07/14/19 08/24/19 Gigi Myers MD [address] [place] [address] [place] [address] Assigned PCP 08/25/19 08/29/20 Mery Alicia, LISA Personal Advocate & Liaison (PAL) 08/13/20 Sun Moe MD [address] [place] [address] [place] [address] Assigned PCP 08/30/20 03/06/21 Gigi Myers MD [address] [place] [address] [place] [address] Assigned PCP 03/07/21 Lanny Schneider OD [address] [place] [address] [place] [address] Assigned Surgical Provider 03/14/21 05/08/21 Luisa Velez PA-C [address] [place] [address] Assigned Surgical Provider 05/09/21 12/17/21 Paz Pimentel, PhD [address] [place] [address] Assigned Behavioral Health Provider 09/05/21 Donal Bustillos MD 5[address] [facility] [address] Dermatology 09/28/21 Lanny Schneider [place] 3305 [facility] [place] [address] Assigned Surgical Provider 12/18/21 03/04/22 Omer Escoto MD [address] [facility] [place] [address] MD Ophthalmology 12/20/21 Omer Escoto MD 6341 [facility] [place] [address] Assigned Surgical Provider 03/05/22 08/19/22 Lanny Schneider OD 3305 [facility] [place] [address] Assigned Surgical Provider 08/20/22 08/26/22 Omer Escoto MD [address] [facility] [place] [address] Assigned Surgical Provider 08/27/22 documented as of this encounter
--- OUTSIDE RECORDS SUMMARY | 2023-05-11 20:22 | XMS_ITS | Encounter Summary ---
Author Name Unknown Organization [facility] Address [address] [place] [address]. [place] [address] Care Team Providers Care Online Banking Specialist Name Role Phone Gigi Myers MD Primary Care Provider [phone] Mery Alicia RN Unavailable Unavaila ble Gigi Myers MD Unavailable [phone] Luisa Velez PA-C Unavailable [phone] Paz Pimentel PhD Unavailable [phone] Donal Bustillos MD Unavailable Lanny Schneider OD Unavailable Omer Escoto MD Unavailable Omer Escoto MD Unavailable [phone] Lanny Schneider OD Unavailable Omer Escoto MD Unavailable [phone] Encounter Details Date Type Department Care Team (Late st Contact Info) Description 06/08/2021 MyC Medical Advice [address] [address] Rhiannon Cesar CMA Social History Tobacco Use Types Packs/Day Years [...] have Coronavirus / COVID-19? No / Unsure 06/10/2021 3:29 PM MIXING HOUSE OPERATOR documented as of this encounter Plan of Treatment Upcoming Encounters Date Type Department Care Team (Late st Contact Info) Description 05/24/2023 10:30 AM MIXING HOUSE OPERATOR Office Visit [facility] [phone] [place] [phone] [place] [address] [place] [address] documented as of this encounter Visit Diagnoses Not on filedocumented in this encounter Additional Health Concerns Infection Onset Date Last Indicated Resolved Time Rule Out COVID-19 01/01/2023 01/01/2023 01/02/2023 9:48 AM CDT Assessment Noted Time PHQ-9 Depression Total Score: 5 03/02/20 21 7:32 AM MIXING HOUSE OPERATOR documented as of this encounter Care Teams Online Banking Specialist Relationship Specialty Start Date End Date Gigi Myers MD [address] [place] [address] [place] [address] PCP - General Internal Medicine 05/05/15 Mery Alicia, LISA Personal Advocate & Liaison (PAL) 08/13/20 Gigi Myers MD [address] [place] [address] [place] [address] Assigned PCP 03/07/21 Luisa Velez PA-C [address] [place] [address] Assigned Surgical Provider 05/09/21 12/17/21 Paz Pimentel, PhD [address] [place] [address] Assigned Behavioral Health Provider 09/05/21 Donal Bustillos MD [address]200 [facility] [place] [address] MD Dermatology 09/28/21 Lanny Schneider OD [address] [facility] [place] [address] Assigned Surgical Provider 12/18/21 03/04/22 Omer Escoto MD 6[address] [facility] [place] [phone] MD Ophthalmology 12/20/21 Omer Escoto MD 6[address] [facility] [place] [address] Assigned Surgical Provider 03/05/22 08/19/22 Lanny Schneider OD [address] [facility] [place] [address] Assigned Surgical Provider 08/20/22 08/26/22 Omer Escoto MD 6[address] [facility] [place] [id number] Assigned Surgical Provider 08/27/22 documented as of this encounter
--- OUTSIDE RECORDS SUMMARY | 2023-05-11 20:22 | XMS_ITS | Encounter Summary ---
Author Name Unknown Organization [facility] Address [address] [place] [address] Care Team Providers Care District Court Administrator Name Role Phone Gigi Myers MD Primary Care Provider [phone] Gigi Myers MD Unavailable [phone] Nilsa García MD Unavailable [phone] Gigi Myers MD Unavailable [phone] Mery Alicia RN Unavailable Unavaila ble Sun Moe MD Unavailable Gigi Myers MD Unavailable [phone] Lanny Schneider OD Unavailable Luisa Velez PA-C Unavailable [phone] Paz Pimentel PhD Unavailable [phone] Donal Bustillos MD Unavailable [phone] Lanny Schneider OD Unavailable Omer Escoto MD Unavailable Omer Escoto MD Unavailable [phone] Lanny Schneider OD Unavailable Omer Escoto MD Unavailable [phone] Reason for Visit * Reason Onset Date Comments [facility] Communication 07/11/2019 Encounter Details Date Type Department Care Team (Latest Contact Info) Description 07/11/2019 [facility] [address] [facility] [address] [address] [place] [phone] Gigi Myers MD [address] [facility] [place] [address] MyChart Communication Social History Tobacco Use Types Packs/Day Years [...] encounter Miscellaneous Notes * Telephone Encounter - Johana Urban RN - 07/11/2019 8:[address] Myers: Please see below. Thank you. Johana Urban RN [facility] -- Triage Nurse documented in this encounter Plan of Treatment Upcoming Encounters Date Type Department Care Team (Late st Contact Info) Description 05/24/2023 10:30 AM TRANSMISSION INSPECTOR Office Visit [facility] [address] [place] [phone] [place] [address] [place] [address] documented as of this encounter Visit Diagnoses Not on filedocumented in this encounter Additional Health Concerns Infection Onset Date Last Indicated Resolved Time Rule Out COVID-19 01/01/2023 01/01/2023 01/02/2023 9:48 AM CDT Assessment Noted Time PHQ-9 Depression Total Score: 6 05/22/19 19 11:15 AM TRANSMISSION INSPECTOR documented as of this encounter Care Teams District Court Administrator Relationship Specialty Start Date End Date Gigi Myers MD [address] [place] [address] [place] [address] PCP - General Internal Medicine 05/05/15 Gigi Myers MD [address] [place] [address] [place] [address] Assigned PCP 06/06/16 07/13/19 Nilsa García MD [address] [place] [address] [place] [address] Assigned PCP 07/14/19 08/24/19 Gigi Myers MD [address] [place] [address] [place] [address] Assigned PCP 08/25/19 08/29/20 Mery Alicia, LISA Personal Advocate & Liaison (PAL) 08/13/20 Sun Moe MD [address] [place] [address] [place] [address] Assigned PCP 08/30/20 03/06/21 Gigi Myers MD [address] [place] [address] [place] [address] Assigned PCP 03/07/21 Lanny Schneider OD [address] [place] [address] [place] [address] Assigned Surgical Provider 03/14/21 05/08/21 Luisa Velez PA-C [address] [place] [address] Assigned Surgical Provider 05/09/21 12/17/21 [place] [address] [place] [address] Assigned Behavioral Health Provider 09/05/21 Donal Bustillos MD [address] [place] [address] Dermatology 09/28/21 Lanny Schneider OD [address] [place] [address] [place] [address] Assigned Surgical Provider 12/18/21 03/04/22 Omer Escoto MD 6341 [facility] [place] [phone] MD Ophthalmology 12/20/21 Omer Escoto MD 6[address] [facility] [place] [phone] Assigned Surgical Provider 03/05/22 08/19/22 Lanny Schneider OD [address] [place] [address] [place] [address] Assigned Surgical Provider 08/20/22 08/26/22 Omer Escoto MD 6341 [facility] [place] [id number] Assigned Surgical Provider 08/27/22 documented as of this encounter
--- OUTSIDE RECORDS SUMMARY | 2023-05-11 20:22 | XMS_ITS | Encounter Summary ---
Author Name Unknown Organization [facility] Address [address] [place] [address] Care Team Providers Care Accountant Machine Processing Name Role Phone Gigi Myers MD Primary Care Provider [phone] Gigi Myers MD Unavailable [phone] Gigi Myers MD Unavailable [phone] Nilsa García MD Unavailable [phone] Gigi Myers MD Unavailable [phone] Mery Alicia RN Unavailable Unavaila ble Sun Moe MD Unavailable [phone] Gigi Myers MD Unavailable [phone] Lanny Schneider OD Unavailable Luisa Velez PA-C Unavailable [phone] Paz Pimentel PhD Unavailable [phone] Donal Bustillos MD Unavailable Lanny Schneider OD Unavailable Omer Escoto MD Unavailable [phone] Omer Escoto MD Unavailable [phone] Lanny Schneider OD Unavailable Omer Escoto MD Unavailable [phone] Encounter Details Date Type Department Care Team (Late st Contact Info) Description 07/19/2017 MyC Medical Advice [facility] [address] [place] [id number] John Zayas, WING SCORER Social History Tobacco Use Types Packs/Day Years [...] st Contact Info) Description 05/24/2023 10:30 AM VACUUM FRAME OPERATOR Office Visit [address] [phone] Dennis Ramachandran Yenifer MD [place] [id number] [place] [id number] documented as of this encounter Visit Diagnoses Not on filedocumented in this encounter Additional Health Concerns Infection Onset Date Last Indicated Resolved Time Rule Out COVID-19 01/01/2023 01/01/2023 01/02/2023 9:48 AM CDT documented as of this encounter Care Teams Accountant Machine Processing Relationship Specialty Start Date End Date Gigi yMers MD [address] [place] [address] [place] [id number] PCP - General Internal Medicine 05/05/15 Gigi Myers MD [address] [place] [address] [place] [id number] PCP - Assigned PCP 06/06/16 06/26/18 Gigi Myers MD [address] [place] [address] [place] [id number] Assigned PCP 06/06/16 07/13/19 Nilsa García MD [address] [place] [address] [place] [address] Assigned PCP 07/14/19 08/24/19 Gigi Myers MD [address] [place] [address] [place] [id number] Assigned PCP 08/25/19 08/29/20 Mery Alicia, LISA Personal Advocate & Liaison (PAL) 08/13/20 Sun Moe MD [address] [place] [address] [place] [id number] Assigned PCP 08/30/20 03/06/21 Gigi Myers MD [address] [place] [address] [place] [address] Assigned PCP 03/07/21 Lanny Schneider OD [address] [place] [address] [place] [address] Assigned Surgical Provider 03/14/21 05/08/21 Luisa Velez PA-C [address] [place] [address] Assigned Surgical Provider 05/09/21 12/17/21 [place] [address] [place] [address] Assigned Behavioral Health Provider 09/05/21 Dnoal Bustillos MD [address] [place] [address] Dermatology 09/28/21 Lanny Schneider, OD [address] [facility] [place] [id number] Assigned Surgical Provider 12/18/21 03/04/22 Omer Escoto MD [address] [facility] [place] [phone] Ophthalmology 12/20/21 Omer Escoto MD [address] [facility] [place] [phone] Assigned Surgical Provider 03/05/22 08/19/22 Lanny Schneider, [place] [address] [facility] [place] [address] Assigned Surgical Provider 08/20/22 08/26/22 Omer Escoto MD [address] [facility] [place] [phone] Assigned Surgical Provider 08/27/22 documented as of this encounter
== END 2023-05-06 12:06 | disposition home or self-care (01) ==
LOC: NFLDREF 05-11 20:17
PROVIDERS: Visit Provider Family Medicine
DX: N30.00 Acute cystitis without hematuria (principal)
CPT/HCPCS: 87086